=== PATIENT | female | born 1945 | race Caucasian/White ===

== ENCOUNTER → 2023-12-09 12:36 | Outpatient (REF) | payer MEDICARE, SELFPAY ==
[2023-12-10 19:22] LABS: Urine Albumin Trace (Neg - Trace); Urine Bilirubin Negative (Negative); Urine Color Yellow; Urine Glucose 2+ (Negative); Urine Ketone Trace (Negative); Urine Leukocyte 2+ (Negative); Urine Nitrite Negative (Negative); Urine Occult Blood 2+ (Negative); Urine Urobilinogen Negative (Neg - 1+)
[2023-12-10 19:23] LABS: Urine Character Very Cloudy (Clear)
[2023-12-10 19:30] LABS: Urine Squamous Cell 0-2 /LPF (Few)
[2023-12-10 19:31] LABS: Urine Bacteria Many (Negative); Urine White Cell >100 /HPF (0-5)
== END ==
LOC: OLABPV 12:36
PROVIDERS: ATTENDING PHYSICIAN Obstetrics & Gynecology
DX: N39.0 Urinary tract infection, site not specified (principal)
CPT/HCPCS: 81003; 81015; 87071; 87086; 87186

== ENCOUNTER → 2024-01-05 11:33 | Outpatient (REF) | payer MEDICARE, SELFPAY | LOC: OLABPV 11:33 | PROVIDERS: ATTENDING PHYSICIAN Obstetrics & Gynecology | DX: N39.0 Urinary tract infection, site not specified (principal) | CPT/HCPCS: 87077; 87086; 87186 ==

== ENCOUNTER → 2024-01-11 10:25 | Outpatient (REF) | payer MEDICARE, SELFPAY ==
[2024-01-11 11:27] LABS: ALT (SGPT) 17 U/L (0-35); AST (SGOT) 26 U/L (14-36); Albumin 3.5 g/dl (3.5-5.0); Alkaline Phosphatase 67 U/L (38-126); Blood Urea Nitrogen 16 mg/dl (7-17); Calcium 9.7 mg/dl (8.4-10.2); Carbon Dioxide 27 mmol/L (22-30); Chloride 98 mmol/L (98-107); Glucose 105 mg/dl (70-99); HDL Cholesterol 66 mg/dl; LDL Cholesterol, Calculated 80 mg/dl; Potassium 4.2 mmol/L (3.5-5.1); Sodium 134 mmol/L (135-145); Total Bilirubin 0.7 mg/dl (0.2-1.3); Total Cholesterol 192 mg/dl (50-199); Total Protein 5.6 g/dl (6.3-8.2); Triglyceride 230 mg/dl (10-149); Very Low Density Lipoprotein 46 mg/dl (0-30); eGFR > 60.00
[2024-01-11 11:37] LABS: Glycohemoglobin (HgbA1c) 7.8 % (4.0-5.6)
[2024-01-11 11:57] LABS: TSH Reflex To Free T4 2.54 uIU/ml (0.47-4.68)
== END ==
LOC: OLABPV 10:25
PROVIDERS: ATTENDING PHYSICIAN Family Medicine
DX: E11.65 Type 2 diabetes mellitus with hyperglycemia (principal); E78.00 Pure hypercholesterolemia, unspecified; E03.9 Hypothyroidism, unspecified
CPT/HCPCS: 36415; 80053; 80061; 83036; 84443

== ENCOUNTER → 2024-01-28 14:44 | Outpatient (REF) | payer MEDICARE, SELFPAY | LOC: WDC 14:44 | PROVIDERS: ATTENDING PHYSICIAN Family Medicine | DX: Z12.31 Encounter for screening mammogram for malignant neoplasm of breast (principal) | CPT/HCPCS: 77063; 77067 ==

== ENCOUNTER → 2024-02-01 11:06 | Outpatient (REF) | payer MEDICARE, SELFPAY ==
[2024-02-01 17:17] LABS: Urine Albumin Negative (Neg - Trace); Urine Bilirubin Negative (Negative); Urine Character Slightly Cloudy (Clear); Urine Color Yellow; Urine Glucose Negative (Negative); Urine Ketone Negative (Negative); Urine Leukocyte 2+ (Negative); Urine Nitrite Negative (Negative); Urine Occult Blood Trace (Negative); Urine Urobilinogen Negative (Neg - 1+)
[2024-02-01 17:23] LABS: Urine Bacteria Many (Negative); Urine Red Blood Cell 0-2 /HPF (0-2); Urine Squamous Cell 0-2 /LPF (Few); Urine White Cell >100 /HPF (0-5)
== END ==
LOC: CLAB 11:06
PROVIDERS: ATTENDING PHYSICIAN Obstetrics & Gynecology
DX: N39.0 Urinary tract infection, site not specified (principal)
CPT/HCPCS: 81003; 81015; 87077; 87086; 87186

== ENCOUNTER → 2024-03-17 09:25 | Outpatient (REF) | payer MEDICARE, SELFPAY ==
[2024-03-17 19:51] LABS: Urine Albumin Negative (Neg - Trace); Urine Bilirubin Negative (Negative); Urine Character Clear (Clear); Urine Color Yellow; Urine Glucose Negative (Negative); Urine Ketone Negative (Negative); Urine Leukocyte Negative (Negative); Urine Nitrite Negative (Negative); Urine Occult Blood Negative (Negative); Urine Urobilinogen Negative (Neg - 1+); Urine pH 6.5 (5.0-9.0)
== END ==
LOC: OLABP 09:25
PROVIDERS: ATTENDING PHYSICIAN Urology
DX: N39.0 Urinary tract infection, site not specified (principal)
CPT/HCPCS: 81003; 87077; 87086; 87186

== ENCOUNTER → 2024-05-03 10:52 | Outpatient (REF) | payer MEDICARE, SELFPAY ==
[2024-05-03 14:12] LABS: ALT (SGPT) 18 U/L (0-35); AST (SGOT) 27 U/L (14-36); Albumin 3.5 g/dl (3.5-5.0); Alkaline Phosphatase 59 U/L (38-126); Blood Urea Nitrogen 19 mg/dl (7-17); Calcium 9.5 mg/dl (8.4-10.2); Carbon Dioxide 30 mmol/L (22-30); Chloride 99 mmol/L (98-107); Glucose 82 mg/dl (70-99); Potassium 4.1 mmol/L (3.5-5.1); Sodium 135 mmol/L (135-145); Total Bilirubin 0.9 mg/dl (0.2-1.3); Total Protein 5.4 g/dl (6.3-8.2); eGFR > 60.00
[2024-05-03 14:24] LABS: Glycohemoglobin (HgbA1c) 7.4 % (4.0-5.6)
== END ==
LOC: OLABPV 10:52
PROVIDERS: ATTENDING PHYSICIAN Family Medicine
DX: I10 Essential (primary) hypertension (principal); E11.65 Type 2 diabetes mellitus with hyperglycemia
CPT/HCPCS: 36415; 80053; 83036

== ENCOUNTER → 2024-06-16 10:26 | Outpatient (REF) | payer MEDICARE, SELFPAY | LOC: RCS 10:26 | PROVIDERS: ATTENDING PHYSICIAN Internal Medicine Cardiovascular Disease; FAMILY PHYSICIAN Family Medicine | DX: I34.0 Nonrheumatic mitral (valve) insufficiency (principal); I36.1 Nonrheumatic tricuspid (valve) insufficiency | CPT/HCPCS: 93306 ==

== ENCOUNTER 2024-08-08 08:18 | Outpatient (RCR) | payer MEDICARE, SELFPAY | END 2024-08-08 23:59 | disposition home or self-care (01) | LOC: RPT 08:18 | PROVIDERS: ATTENDING PHYSICIAN Urology; FAMILY PHYSICIAN Family Medicine | DX: N39.41 Urge incontinence (principal); N39.0 Urinary tract infection, site not specified; M62.89 Other specified disorders of muscle; Z73.6 Limitation of activities due to disability | CPT/HCPCS: 97163; 97530 ==

== ENCOUNTER 2024-08-28 15:06 | Outpatient (RCR) | payer MEDICARE, SELFPAY | END 2024-08-28 23:59 | disposition home or self-care (01) | LOC: RPT 15:06 | PROVIDERS: ATTENDING PHYSICIAN Urology; FAMILY PHYSICIAN Family Medicine | DX: N39.41 Urge incontinence (principal); N39.0 Urinary tract infection, site not specified; M62.89 Other specified disorders of muscle; Z73.6 Limitation of activities due to disability | CPT/HCPCS: 97112; 97530 ==

== ENCOUNTER 2024-09-02 22:20 | Inpatient (IN) | payer MEDICARE, SELFPAY ==
[2024-09-02] VITALS (36 sets, daily range): BP systolic 66–127; BP diastolic 26–95; BMI 31.9
--- NOTE | 2024-09-02 17:56 | EDRN ---
unable to get IV access and IV VAT RN called at this time and called back and aware. Dr. Burleson in room w/ pt at this time.
--- NOTE | 2024-09-02 18:12 | ED.GENMED ---
History of Present Illness
General
Chief Complaint: Abdominal Symptoms
Source: patient and spouse
Exam Limitations: none
Time Seen by Provider: 09/02/24 17:55
History of Present Illness
History of Present Illness:
79-year-old female complaining of vomiting diarrhea general fatigue weakness. Started yesterday. Diarrhea is watery. No blood or mucus. No abdominal pain. Recurrent vomiting today. Slid off her chair today secondary to weakness. No unusual
food ingestion. However other people at [facility] have been ill with similar issues.
Past History
Past History
ED Past Medical History: Fibromyalgia, GERD (Dyspepsia), HTN, Hypercholesterolemia, NIDDM (Diet controlled), Hypothyroidism, Psychiatric (Depression, ) and Other (rheumatoid arthritis, chronic nausea, intermittent diarrhea, vertigo, Diverticulitis,
TMJ, CPAP for sleep apnea, GI bleeding, UTI, Polymyalgia rheumatica, )
ED Past Surgical History: Appendectomy, Bowel resection, Cholecystectomy, Gynecological (Hysterectomy D&C, ovarian cyst), Orthopedic (Bilateral knee replacements Spinal fusion, Right foot surgery), Tonsilectomy, Urological (Bladder repair) and Other
(Surgery for small bowel obstruction)
Patient has exhibited threatening behavior?: No
PSI?: No
Social History
Tobacco: Non-smoker
Alcohol: None
Drug: None
Personal:
Living: with family
Employment: Retired
Family History
Family History: Hypertension
Review of Systems
Review of Systems
All Other Systems: Not applicable
Constitutional: Reports chills; Denies fever
Respiratory: Reports no symptoms
Cardiac: Reports no symptoms
ABD/GI: Denies abdominal pain, bloody stools or black stools
Phy Exam
Physical Exam
Physical Exam:
GENERAL: Alert and oriented in no apparent distress. Generally weak however
EYE: Orbits normal.
NECK: Supple, no significant adenopathy.
ENT: Pharynx without erythema
CARDIAC: Regular rate and rhythm without any obvious murmurs.
LUNGS: Clear breath sounds,normal
ABDOMEN: Soft, without focal tenderness or distention. Elevated BMI
NEUROLOGICAL: Alert and oriented , grossly non-focal
SKIN: Warm and dry, mild areas of ecchymosis to both anterior knees with old surgical scars
MUSCULOSKELETAL: Mild bilateral lower extremity nonpitting edema. Both feet are cold but not cyanotic
PSYCH: Normal and appropriate interaction.
Sepsis
Sepsis Screening
Sepsis Assessment: Septic Shock
Sepsis Screening: Hypotension, Worsening O2 Saturation, Sustained Hypotension-SBP <90,MAP<65, or SBP decrease 40mmHg or more and Vasopressor support required
Sepsis Screen
Sepsis Screen: Septic Shock
Date: 09/02/24
Time: 22:55
Course
Orders/Labs/Results
Orders:
Orders
09/02/24 17:26
Electrocardiogram (*1) Urgent
Reason for Study: Chest Pain
Cardiac Monitoring- Treatment ONCE
EKG- Treatment ONCE
09/02/24 18:03
STOOL [C difficile Antigen & Toxins] Urgent
PATRICK Source: Feces/Stool
Specimen Description:
Stool Culture Urgent
PATRICK Source: Feces/Stool
Specimen Description:
CXR Port [CR Chest Portable - 1 View] Urgent
Comment:
Reason For Exam: hypoxia
Reason Study Needs to be Portable: Patient Unstable
09/02/24 18:04
CT Abd/Pel (IV only)-DH only Urgent
Comment:
Reason For Exam: Vomiting diarrhea
IV Insert/Care/Rem.- Treatment PRN
0.9% Sodium Chloride 1000 ml [Nss] 1,000 ml IV BOLUS
09/02/24 18:38
COVID-19 Antigen Urgent
Source: Nasal Swab
Influenza A+B Rapid Molecular Urgent
PATRICK Source: Nasal Swab
Specimen Description:
09/02/24 18:40
Add On- LAB Urgent
Tests Added?: probnp
09/02/24 19:40
Comprehensive Metabolic Panel Urgent
Lactic Acid Urgent
Lipase Urgent
Blood Culture Urgent
PATRICK Source: Blood/Venous
Specimen Description:
09/02/24 19:47
NT-proBNP Urgent
Comment: ADD ON
Troponin I Urgent
09/02/24 20:02
Complete Blood Count/With Diff Urgent
09/02/24 20:08
Acetaminophen 1000MG/100Ml [Ofirmev] 1,000 mg in 100 ml .ROUTE .STK-MED
Acetaminophen 1000MG/100Ml [Ofirmev] 1,000 mg in 100 ml IV ONCE
Acetaminophen IV Indication:: ED Narcotic Naive Pt-ONCE
09/02/24 20:42
Piperacillin/Tazo 4.5 Gram [Zosyn] 4.5 gram in 100 ml IV NOW
09/02/24 20:43
Hydrocortisone Sod Succinate [Solu-Cortef] 100 mg IV NOW STA
NORepinephrine 4 MG/250 ML [Levophed] 4 mg in 250 ml IV NOW
Initial dose in mcg/min, then titrate:: 2
Titrate to keep:: MAP > 65 mmHg
Titrate by mcg/min:: 1-2 mcg/min
Frequency of titrations (minutes):: 5
Maximum dose in ICU in mcg/min:: 30
Maximum dose in IMU in mcg/min:: 8
Maximum dose in IVU in mcg/min:: 4
Begin to taper infusion when:: Remained at goal for 4hrs
Taper by mcg/min:: 1-2 mcg/min
Frequency of taper (minutes) if patient maintains goal:: 30
Taper to off?: Yes
If infusion off & no longer maintaining goal:: Contact Provider
09/02/24 21:25
Urinalysis Reflex To Culture Urgent
Date Specimen was Collected: 09/02/24
Time Specimen was Collected: 21:27
Urine Microscopic Reflex Cult Urgent
Urine Culture Urgent
PATRICK Source: U
Specimen Description:
Date Specimen was Collected: 09/02/24
Time Specimen was Collected: 21:27
09/02/24 21:30
Add On - Microbiology Urgent
Tests Added?: urine c+s
09/02/24 22:00
Admit/Transfer Patient As Directed
Co-Sign Provider:
Level of Care: Inpatient admission
Assign to:: ICU
Physician / Group: Hospitalist
Diagnosis: Sepsis
Reason for Hospitalization: Septic shock
Expected length of stay greater than two midnights?: Yes
ELOS- Estimated Length of Stay in days: 2
I certify the patient meets the requirements for IP care: Yes
Flush (0.9% Sodium Chloride) [Flush (Nss)] See Dose Instructions IV PER PROTOCOL
PRN Pain Medication Management As Directed
May give lesser potent ordered pain med per pt: Yes
preference::
Protocol:: Medication orders for pain may be administered in a
manner that supports deferring to patient preference
when the pt is:
- Requesting an ordered lesser potent pain medication.
Least to most potent pain medications are defined
as: acetaminophen < NSAID < tramadol < opioids
(morphine, oxycodone, hydromorphone).
- Requesting a lesser dose of the same medication IF
ORDERED.
- Requesting a less intrusive route of administration
if both routes are prescribed by the provider (PO <
IV).
09/02/24 22:01
Code Status As Directed
Resuscitation Status: Full Code
Abnormal Lab Results
09/02/24 09/02/24 09/02/24
19:40 20:02 21:25
WBC 12.9 H 10^3/uL
(4.8-10.8)
MCHC 30.1 L g/dL
(33.0-37.0)
Abs Immat Gran (auto) 0.1 H 10^3/uL
(0-0.05)
Absolute Neuts (auto) 10.9 H 10^3/uL
(1.4-6.5)
Absolute Lymphs (auto) 0.5 L 10^3/uL
(1.2-3.4)
Absolute Monos (auto) 1.2 H 10^3/uL
(0.1-0.6)
Immature Gran % 1.0 H %
(0-0.5)
Neutrophils % 84.5 H %
(42.2-75.2)
Lymphocytes % 3.6 L %
(20.5-51.1)
Carbon Dioxide 34 H mmol/L
(22-30)
BUN 21 H mg/dl
(7-17)
Glucose 153 H mg/dl
(70-99)
Calcium 8.2 L mg/dl
(8.4-10.2)
Total Protein 5.3 L g/dl
(6.3-8.2)
Albumin 3.4 L g/dl
(3.5-5.0)
Ur Occult Blood Reflex 3+ A
(Negative)
Urine Nitrite (Reflex) Positive A
(Negative)
Leukocyte Esterase Rfl 2+ A
(Negative)
Urine RBC 3-6 A /HPF
(0-2)
Urine WBC (Reflex) 50-60 A /HPF
(0-5)
Urine Bacteria (Reflex) Many A
(Negative)
09/02/24 20:02
09/02/24 19:40
Vital Signs
Initial and Last Documented VS:
Initial Vital Signs
Resp BP
24 116/58
09/02/24 17:27 09/02/24 17:27
Last Documented Vital Signs
Temp Pulse Resp BP Pulse Ox
101.1 F H 92 18 90/48 92
09/02/24 22:41 09/02/24 22:35 09/02/24 22:35 09/02/24 22:35 09/02/24 22:35
MDM/Problems Addressed
Differential Diagnosis Includes:
Patient describing significant GI symptoms and weakness. Workup in progress. Cultures lactic acid stool cultures CT of the abdomen COVID flu testing. Will likely need admission. Similar symptoms have been going around her independent living
facility.
*Radiology
Radiology exam reviewed: preliminary read by ED provider (CHF), radiology read reviewed (CHF/possible pneumonia) and all reviewed NAD by ED Provider (CT scan shows enteritis/proctitis and multiple incidental findings)
*Pulse Oximetry
Patient hypoxic: yes
*EKG
Interpreted by ED Provider?: Yes
Interpretation: abnormal
Comparison EKG: changes noted
Heart Rate: 96
Rate: normal
Rhythm: sinus
[place]: normal axis
Interval: normal interval
QRS Pattern: normal QRS
Ischemia: non-specific ST changes
*Corporate Officer Interpretation
Rate: normal
Interpretation: normal
Heart Rate: 90
Rhythm: sinus
*Critical Care Note
Total Time (30-74mins, 75-104mins- exclusive of procedures): 45
Data Reviewed
Review of Other/Old Records Reveals: Labs, Records and Testing
Update Note
Update Note:
2044... Patient's blood pressure dropped. She is receiving wide-open fluids but we are trying to be careful with her x-ray showing CHF and her proBNP being elevated. She has no history of CHF. Also will start Levophed. With the fever and septic
picture we will start a dose of Zosyn. Also stress dose steroids.
2254... Patient has been rechecked multiple times. Family has been updated multiple times. Blood pressure improved some. She had some episodes of atrial tachycardia but self resolving. CT most consistent with enteritis which is consistent with
her history. However urine positive. Possible urosepsis.
ED Attending Note
-
Portions of this chart may have been created with voice recognition software.� Occasional wrong word or��sound alike� substitutions may have occurred due to the inherent limitations of voice recognition software.
Discharge Plan
Departure
Patient Disposition: Admit
Date of Disposition: 09/02/24
Time of Disposition: 21:04
Presentation/result/management discussed w/ accepting MD/DO: Hospitalist
Discharge Problem:
Septic shock, Possible urosepsis, Enteritis, CHF
Interventions
Interventions:
*Risk Screen - Suicide Last Done: 09/02/24 17:29
*General Assessment Last Done: 09/02/24 17:29
*Neglect/Abuse Screening Last Done: 09/02/24 17:29
ED- Fall Risk Assessment Last Done: 09/02/24 17:29
*ED COVID-19 Vaccine History Last Done: 09/02/24 17:29
EN-Aohrtl-Thtgswiujn Assessment Last Done: 09/02/24 18:40
--- NOTE | 2024-09-02 18:35 | EDRN ---
IV VAT RN in room w/pt at this time.
[2024-09-02 18:58] LABS: COVID-19 Antigen Negative (Negative)
--- NOTE | 2024-09-02 19:18 | EDRN ---
Pt remains w/out IV access or bloods to be sent to lab. IV VAT RNs x2 in room attempting a midline.
[2024-09-02 19:59] LABS: Lactic Acid 1.9 mmol/L (0.7-2.0)
[2024-09-02 20:02] LABS: ALT (SGPT) 19 U/L (0-35); AST (SGOT) 29 U/L (14-36); Albumin 3.4 g/dl (3.5-5.0); Alkaline Phosphatase 55 U/L (38-126); Blood Urea Nitrogen 21 mg/dl (7-17); Calcium 8.2 mg/dl (8.4-10.2); Carbon Dioxide 34 mmol/L (22-30); Chloride 98 mmol/L (98-107); Estimated Creatinine Clearance 83 ml/min; Glucose 153 mg/dl (70-99); Lipase 38 U/L (23-300); Potassium 3.9 mmol/L (3.5-5.1); Sodium 135 mmol/L (135-145); Total Bilirubin 1.1 mg/dl (0.2-1.3); Total Protein 5.3 g/dl (6.3-8.2); eGFR > 60.00
[2024-09-02] MEDS: NSS 1000 IV (20:05)
[2024-09-02 20:08] LABS: % Basophils 0.3 % (0-2); % Eosinophils 1.4 % (0-6); % Lymphocytes 3.6 % (20.5-51.1); % Monocytes 9.2 % (1.7-9.3); % Neutrophils 84.5 % (42.2-75.2); Absolute Eosinophils 0.2 10^3/uL (0-0.7); Absolute Immature Granulocytes 0.1 10^3/uL (0-0.05); Absolute Lymphocytes 0.5 10^3/uL (1.2-3.4); Absolute Monocytes 1.2 10^3/uL (0.1-0.6); Absolute Neutrophils 10.9 10^3/uL (1.4-6.5); Hematocrit 42.5 % (37.0-47.0); Hemoglobin 12.8 g/dL (12.0-16.0); Mean Corp Hgb Conc. 30.1 g/dL (33.0-37.0); Mean Corpuscular Hgb 29.2 pg (27.0-31.0); Mean Corpuscular Volume 96.8 fL (81.0-99.0); Mean Platelet Volume 9.5 fL (7.4-10.4); Nucleated Red Blood Cells % 0 %; Platelet Count 195 10^3/uL (130-400); Red Blood Cell Count 4.39 10^6/uL (4.20-5.40); Red Cell Dist. Width 13.7 % (11.5-14.5); White Blood Cell Count 12.9 10^3/uL (4.8-10.8)
[2024-09-02] MEDS: OFIRMEV 100 IV (20:10)
[2024-09-02 20:14] LABS: NT-proBNP 2290 pg/ml
[2024-09-02 20:35] LABS: Troponin I 0.028 ng/ml
[2024-09-02] MEDS: SOLU-CORTEF 100 MG IV (21:09)
[2024-09-02] MEDS: ZOSYN 100 IV (21:12)
[2024-09-02] MEDS: LEVOPHED 250 IV (21:15)
[2024-09-02 21:39] LABS: Urine Albumin Trace (Neg - Trace); Urine Bilirubin Negative (Negative); Urine Character Slightly Cloudy (Clear); Urine Color Yellow; Urine Glucose Negative (Negative); Urine Ketone Negative (Negative); Urine Leukocyte 2+ (Negative); Urine Nitrite Positive (Negative); Urine Occult Blood 3+ (Negative); Urine Urobilinogen Negative (Neg - 1+)
[2024-09-02 21:48] LABS: Urine Mucus Few; Urine Squamous Cell 0-2 /LPF (Few)
[2024-09-02 21:49] LABS: Urine Bacteria Many (Negative); Urine White Cell 50-60 /HPF (0-5)
--- NOTE | 2024-09-02 21:50 | HPS.HSE ---
Family Physician
-
Family Physician: Lyubov Liu
Chief Complaint
-
Nausea vomiting diarrhea and weakness
History of Present Illness
This is an 79-year-old female with past medical history significant for rheumatoid arthritis on chronic prednisone, diabetes, DMII, hypothyroid, GERD who lives at adult living facility presenting to the emergency department with abdominal
discomfort, nausea vomiting diarrhea and weakness, found to be hypotensive and febrile in the emergency department requiring immediate placement on pressors.
Family reports 1 day history of nausea then followed by development of vomiting and diarrhea today. Multiple members of the living facility has similar GI symptoms. Patient herself denies any urinary symptoms. She reportedly had some chills
earlier. She denies any cough. She has no shortness of breath. She denies any abdominal pain or flank pain. She has no joint pains.
On arrival in the emergency department she had a temp of 102.9, blood pressure was initially 89 systolic but then dropped into the 70s, she was intermittently tachycardic to the 130s, she satting 96% on 2 L. She has a leukocytosis of 13,000 with
otherwise normal CBC. Electrolytes were within normal limits with a normal BUN and creatinine. Glucose was 153. Chest x-ray shows mild vascular and interstitial congestion possibly consistent with CHF. There is a nodular opacity in the left
lower lobe that could be developing pneumonia. COVID test was negative. Influenza was negative. Troponin was negative. BNP was slightly elevated at 2290.
Medical History
Past Medical History
Past Medical History: Reports GERD, HTN, Hypothyroidism and NIDDM
Additional Past Medical History:
RA
Past Surgical History: Reports Other
Social History
Unable to obtain full social history at this time due to: Acuity
Family History
Family History: Not pertinent
Allergies / Home Medications
Allergies reflects when Allergies were last updated in [employer].
Home Medications with original date entered in [employer]
Allergy/Medication List:
Allergies
Allergy/AdvReac Type Severity Reaction Status Date / Time
bee venom protein (honey bee) Allergy Shortness Verified 09/02/24 17:25
of Breath
ciprofloxacin [From Cipro] Allergy Unknown Verified 09/02/24 17:25
glycine [From Gamunex] Allergy Hives Verified 09/02/24 17:25
immune globulin,alpha (IgA) Allergy Hives Verified 09/02/24 17:25
greater than 50 mcg/mL
[From Gamunex]
immune globulin,gamma (IgG) Allergy Hives Verified 09/02/24 17:25
human
[From Gamunex]
lisinopril Allergy cough Verified 09/02/24 17:25
meperidine [From Demerol] Allergy Nausea Verified 09/02/24 17:25
nitrofurantoin Allergy SEE BELOW Verified 09/02/24 17:25
[From Macrobid]
prochlorperazine edisylate Allergy agitation Verified 09/02/24 17:25
[From Compazine]
Sulfa (Sulfonamide Allergy Hives Verified 09/02/24 17:25
Antibiotics)
Home Medications
simvastatin 10 mg tablet (Zocor) 10 mg PO QPM High cholesterol 02/13/08
levothyroxine 25 mcg tablet 25 mcg PO DAILY@0500 Thyroid 05/30/20
potassium chloride 10 mEq tablet,extended release(part/cryst) 10 meq PO TID Electrolyte Repletion ##0 05/30/20
losartan 50 mg tablet 50 mg PO BID Blood pressure 03/27/21
metoprolol tartrate 25 mg tablet 25 mg PO BID #60 tabs 11/16/22
pantoprazole 40 mg tablet,delayed release (Protonix) 40 mg PO BID Gastrointestinal Issue 12/30/22
acetaminophen 325 mg tablet (Tylenol) 325 mg PO HSPRN PRN MILD PAIN 06/24/23
calcium citrate 250 mg PO QPM Supplement 06/24/23
cyclosporine 0.05 % eye drops in a dropperette (Restasis) 1 drp BOTH EYES [id number] PRN DRY EYES 06/24/23
furosemide 20 mg tablet 20 mg PO .[id number] Fluid Retention/Swelling 06/24/23
latanoprost 0.005 % eye drops 1 drp BOTH EYES DAILY Eye Condition 06/24/23
magnesium oxide 400 mg PO QPM Electrolyte Repletion 06/24/23
methylprednisolone 4 mg tablet 24 mg PO DAILY Anti-Inflammatory 06/24/23
sarilumab 200 mg/1.14 mL subcutaneous pen injector (Kevzara) 200 mg SC Q2W rheumatoid arthritis and polymyalgia rheumatica 06/24/23
sitagliptin phosphate 50 mg tablet (Januvia) 50 mg PO DAILY Diabetes 06/24/23
cephalexin 500 mg capsule 500 mg PO QID #28 caps 06/27/23
methylprednisolone 16 mg tablet 24 mg (1.5 x 16 mg) PO DAILY #0 tabs 06/27/23
Review of Systems
-
History Source: Patient and Family
Constitutional: Reports Chills
EENT: Reports No Symptoms
Respiratory: Reports No Symptoms
Cardiac: Reports No Symptoms
Abdomen/GI: Reports Nausea, Vomiting and Diarrhea
: Reports No Symptoms
Musculoskeletal: Reports No Symptoms
Skin: Reports No Symptoms
Neurological: Reports No Symptoms
Endocrine: Reports No Symptoms
Psych: Reports No Symptoms
Physical Exam
Vital Signs
Vital Signs
Temp Pulse Resp BP Pulse Ox
102.9 F H 99 17 78/45 95
09/02/24 19:53 09/02/24 21:30 09/02/24 21:30 09/02/24 21:30 09/02/24 21:30
Physical Exam
General: Well Developed, Well Nourished and Appears in Distress
HEENT: NormoCephalic, Anicteric, Moist mucous membranes, Atraumatic, PERRLA and Oxygen
Respiratory: Clear (anteriorly)
Cardiac: S1/S2, Irregular Rhythm and Peripheral Edema (trace)
Breast: Deferred by me
GI: Soft, Non Distended and Normal Bowel Sounds
Rectal: Deferred by Provider
Genito-urinary: Jackson
Musculoskeletal: No Clubbing, No Cyanosis and No Edema
Skin: Warm
Neuro: AO x 3
Hematologic/Lymphatic: No Lymphadenopathy
Psych: Calm
Laboratory Results
-
09/02/24 20:02
09/02/24 19:40
Laboratory Results
Lactic Acid 1.9 mmol/L (0.7-2.0) 09/02/24 19:40
Total Bilirubin 1.1 mg/dl (0.2-1.3) 09/02/24 19:40
AST 29 U/L (14-36) 09/02/24 19:40
ALT 19 U/L (0-35) 09/02/24 19:40
Alkaline Phosphatase 55 U/L (38-126) 09/02/24 19:40
Troponin I 0.028 ng/ml 09/02/24 19:47
Lipase 38 U/L (23-300) 09/02/24 19:40
Data Reviewed
-
Diagnostic Radiology: Image Personally Visualized and interpreted and Report Reviewed by me
CT Scan: Report Reviewed by me
Medical Tests (Nuc Med, Echo, EKG etc): Image Personally Visualized and interpreted
Lab Data: Labs Reviewed by me
Old Records: Reviewed
Impression/Plan
-
IMPRESSION:
79 y.o female with RA on chronic prednisone, history of urosepsis presents with fevers, hypotension in setting diarrhea and has a positive u/a. Likely urosepsis. Possible PNA.
PLAN:
Septic shock -patient with fever hypotension leukocytosis concerning for acute shock likely secondary from infectious process. Infectious source unclear at this time. X-ray shows possible pneumonia. She does have a history of recent diarrhea and
could have developed colitis or intra-abdominal process with CTAP w/ enterocolitis, she also has a positive u/a and h/o urosepsis.
- admit to ICU
- blood and urine cultures sent
- IV Zosyn, Vanc, check stool for culture and CDIFF if diarrhea
- mrsa swab
- Fluid resuscitation acceptable despite question of CHF. 1.5 L given in ED. Acceptable for additional 500 ml NS IV
- Pressors started
- stress dose steroids given history of chronic medrol use , continue solu-cortif 50 q6 for now
- ID consultation
- Critical care consultation
DM II
- sitagliptin daily
- sliding scale insulin
HTN
- hold losartan
- hold metoprolol
Hypothyroid
- continue synthroid
DVT PPX - lovenox sq
Code status - Full Code
[2024-09-03] VITALS (47 sets, daily range): BP systolic 81–170; BP diastolic 46–105; BMI 31.2
[2024-09-03] MEDS: VANCOCIN 540 MG IV (00:05)
[2024-09-03] MEDS: SOLU-CORTEF 50 MG IV ×4 (00:21→18:20)
[2024-09-03 00:42] LABS: Lactic Acid 0.9 mmol/L (0.7-2.0)
--- NOTE | 2024-09-03 01:20 | PTCARENOTE ---
Received pt via transfer from the ER. Pt AAOx3 able to LUND with generalized weakness. NSR but with runs of tachycardia. +1 edema in extremities. 94% on 5L NC, lung sounds diminished throughout. Hyperactive bowel sounds in all 4Q. Jackson CDI draining
clear yellow urine. Skin CDI, feet pale compared to legs but have palpable pulses. Call menjivar at bedside.
[2024-09-03] MEDS: NEO-SYNEPHRINE 250 IV (01:56)
[2024-09-03 02:00] LABS: Glucose - Point of Care 186 mg/dl (70-99)
[2024-09-03] MEDS: NOVOLOG FLEXPEN 1 UNITS SC (02:03)
[2024-09-03] MEDS: ZOSYN 50 IV ×2 (02:06→09:38)
--- NOTE | 2024-09-03 02:31 | PTCARENOTE ---
All systems reassessed. Pt switched from Levo to Isaías gtt. Call menjivar at bedside.
--- NOTE | 2024-09-03 04:13 | PTCARENOTE ---
All systems reassessed, labs drawn, hygiene performed. Call menjivar at bedside.
[2024-09-03 04:23] LABS: Hematocrit 41.5 % (37.0-47.0); Hemoglobin 12.6 g/dL (12.0-16.0); Mean Corp Hgb Conc. 30.4 g/dL (33.0-37.0); Mean Corpuscular Hgb 29.5 pg (27.0-31.0); Mean Corpuscular Volume 97.2 fL (81.0-99.0); Mean Platelet Volume 9.8 fL (7.4-10.4); Platelet Count 185 10^3/uL (130-400); Red Blood Cell Count 4.27 10^6/uL (4.20-5.40); Red Cell Dist. Width 13.9 % (11.5-14.5); White Blood Cell Count 11.7 10^3/uL (4.8-10.8)
[2024-09-03 04:26] LABS: ALT (SGPT) 18 U/L (0-35); AST (SGOT) 33 U/L (14-36); Albumin 2.9 g/dl (3.5-5.0); Alkaline Phosphatase 34 U/L (38-126); Blood Urea Nitrogen 18 mg/dl (7-17); Calcium 7.3 mg/dl (8.4-10.2); Carbon Dioxide 24 mmol/L (22-30); Chloride 105 mmol/L (98-107); Estimated Creatinine Clearance 82 ml/min; Glucose 173 mg/dl (70-99); Magnesium 1.9 mg/dl (1.6-2.3); Potassium 3.9 mmol/L (3.5-5.1); Sodium 135 mmol/L (135-145); Total Bilirubin 1.7 mg/dl (0.2-1.3); Total Protein 4.9 g/dl (6.3-8.2); eGFR > 60.00
[2024-09-03 04:32] LABS: INR 1.11; PT 14.6 Sec (11.4-14.6)
[2024-09-03 04:33] LABS: APTT 35.5 Sec (23.4-35.0)
[2024-09-03 04:37] LABS: Procalcitonin 1.72 ng/ml (0.0-0.25)
[2024-09-03 05:32] LABS: Cortisol, Random 65.6 ug/dl
[2024-09-03] MEDS: MAGNESIUM SULFATE 100 IV (05:36)
[2024-09-03] MEDS: CALCIUM GLUCONATE 100 IV (05:36)
[2024-09-03] MEDS: SYNTHROID 25 MCG PO (05:37)
[2024-09-03] MEDS: KCL 20 MEQ PO (05:37)
[2024-09-03] MEDS: NOVOLOG FLEXPEN-MODERATE RESISTANCE 1 UNITS SC ×2 (05:55→23:47)
[2024-09-03 06:06] LABS: Glucose - Point of Care 190 mg/dl (70-99)
--- NOTE | 2024-09-03 06:53 | W.PN.HOSP.TC ---
Addendum entered and electronically signed by Iraj Negrete MD 09/04/24 05:56:
Will need to review home medications list and resume as appropriate.
Original Note:
Today's Communication/Plan
-
Shock improved
No need for antibiotics -- appreciate ID
Monitor volume status, may need echo and discussion of case with CBC cardiology
Need home med rec done
Appreciate paramedic supervisor
Assessment / Plan
Assessment / Plan
Physical Exam
General: Not in acute distress
HEENT: Normocephalic
Respiratory: Clear to Auscultation Bilaterally
Cardiac: S1/S2, Irregular Rhythm and Peripheral Edema (trace)
GI: Soft, Non Distended and Normal Bowel Sounds
Musculoskeletal: No Cyanosis and No Edema
Skin: Warm
Neuro: AAO x 3
Psych: Calm
Assessment/Plan
79-year-old female with past medical history significant for rheumatoid arthritis on chronic prednisone, diabetes, DMII, hypothyroid, GERD who lives at adult living facility presenting to the emergency department with fevers, abdominal discomfort,
nausea vomiting diarrhea and weakness, found to be hypotensive and febrile in the emergency department requiring immediate placement on pressors.
Family reported 1 day history of nausea then followed by development of vomiting and diarrhea on 09/02/24. Multiple members of the living facility has similar GI symptoms. Patient herself denied any urinary symptoms. She reportedly had some
chills earlier. She denied any cough. She has no shortness of breath. She denied any abdominal pain or flank pain. She denied any joint pains.
On arrival in the emergency department she had a temp of 102.9, blood pressure was initially 89 systolic but then dropped into the 70s, she was intermittently tachycardic to the 130s, she satting 96% on 2 L. She had a leukocytosis of 13,000 with
otherwise normal CBC. Electrolytes were within normal limits with a normal BUN and creatinine. Glucose was 153. Chest x-ray showed mild vascular and interstitial congestion possibly consistent with CHF. There is a nodular opacity in the left
lower lobe that could be developing pneumonia. COVID test was negative. Influenza was negative. Troponin was negative. BNP was elevated at 2290.
Septic shock -patient with fever hypotension leukocytosis concerning for acute shock likely secondary from infectious process - possible pneumonia vs. acute Norovirus gastroenteritis (consistent with history)
Leukocytosis
Acute Hypoxic Respiratory Insufficiency
History of UTIs
History of Acinetobacter bacteremia
History of RLE Cellulitis/LE Edema
Immunocompromised State
- Continue monitoring in ICU for now, possible transfer to IMU/telemetry if patient continues to remain stable, and as per paramedic supervisor
- Diarrhea is improved now, but for any additional diarrhea can try sending stool for Norovirus testing
- Follow blood and urine cultures (but patient did not have any urinary symptoms)
- Initially, Vancomycin and Zosyn were given, but per ID, no need for further antibiotics as patient probably had sepsis from Norovirus
- Patient received IV fluids in the ER
- Pressors started -- but patient was physically off pressors as of 09/03/24 morning
- Stress dose steroids given history of chronic methyprednisolone use, continue solu-cortif 50 q6 for now and gradually taper as appropriate
- ID consultation, appreciate their evaluation and recommendations
- Critical care consultation, appreciate their evaluation and recommendations
Acute Hypoxic Respiratory Insufficiency in the ER around the time of admission
Elevated ProBNP
Mild Vascular and Interstitial Congestion on CXR
-Monitor off diuresis for now
-Hold further IV fluids unless absolutely needed
-Last echocardiogram in [facility] from 05/2024 showed '.....Stage I diastolic dysfunction suggestive of abnormal relaxation. Mild, functional mitral stenosis with a mean gradient of 4 mmHg. Mild pulmonary hypertension....'
-Daily weights and I's and O's
-Consider discussing with cardiology
Rheumatoid Arthritis/Polymyalgia Rheumatica--Chronic Steroid Dependence
- No rheum symptoms or pain as of 09/03/24 morning
- Follow-up with Rheum after acute hospitalization.
GERD
- Stable. Continue PPI IV on high-dose steroids, consider swithing to PO soon
Obesity due to excess calories and chronic steroid use
- Affects all aspects of care
- Encourage healthy diet and increased activity as tolerated with goal of weight loss.
DM II
- sitagliptin daily
- sliding scale insulin
- Keep in mind, patient is also on stress dose steroids right now
HTN (but presented with shock this admission)
- hold losartan
- hold metoprolol
Hypothyroid
- continue synthroid
WILL REQUEST NURSE TO CONFIRM ACCURACY OF MED REC
DVT PPX - lovenox sq
Code status - Full Code
Anticipated Discharge: > 48 hours
Subjective/Interval History
-
Date of Service: September 03, 2024
Patient was seen and examined. She was feeling better than when she came in.
Objective Data
-
Labs:
Laboratory Results
09/02/24 09/02/24 09/03/24
19:40 20:02 00:50
WBC Cancelled 12.9 H
Hgb Cancelled 12.8
Hct Cancelled 42.5
Plt Count Cancelled 195
PT
INR
APTT Cancelled
Sodium 135
Potassium 3.9
Chloride 98
Carbon Dioxide 34 H
BUN 21 H
Creatinine 0.6
Glucose 153 H
Calcium 8.2 L
Total Bilirubin 1.1
AST 29
ALT 19
Alkaline Phosphatase 55
09/03/24
03:52
WBC 11.7 H
Hgb 12.6
Hct 41.5
Plt Count 185
PT 14.6
INR 1.11
APTT 35.5 H
Sodium 135
Potassium 3.9
Chloride 105
Carbon Dioxide 24
BUN 18 H
Creatinine 0.6
Glucose 173 H
Calcium 7.3 L
Total Bilirubin 1.7 H
AST 33
ALT 18
Alkaline Phosphatase 34 L
Vital Signs:
Vital Signs
Temp Pulse Resp BP Pulse Ox
98.0 F 77 13 92/49 97
09/03/24 06:03 09/03/24 06:00 09/03/24 06:00 09/03/24 05:30 09/03/24 06:00
I&O
09/01/24 09/02/24 09/03/24
06:59 06:59 06:59
Intake Total 2100.5 / 2100.5
Output Total 650 / 650
Balance 1450.5 / 1450.5
--- NOTE | 2024-09-03 08:29 | CON.INTV ---
Consultation
Consultation Request
Date/Time Consultation Requested: 09/03/202451
Date/Time Consultation Performed: 09/03/2024825
Requesting Provider: NATALY Beverly
Performing Provider: Fidel Pugh MD
Reason for Consultation: Sepsis
Medical History
-
Chief Complaint: Nausea, vomiting + diarrhea
History of Present Illness:
79-year-old female with a past medical history of IBS, allergic rhinitis, history of gastritis with history of hemorrhage, diverticulosis/diverticulitis, spinal stenosis, TMJ syndrome, hypertension, history of SBO s/p MIRTA, anxiety, GERD, RA,
fibromyalgia and DM type II who presents from [facility] with nausea, vomiting and diarrhea. She has been unable to eat. Blood sugar was 175 en route here to the hospital. She has been feeling very dehydrated. Symptoms have been going on for about
1-2 days and she did have chills prior to arrival. In the ER she was febrile to 100.7 �F, pulse rate 97, breathing at 20 breaths/min, BP 116/58 and saturating 86% on room air. Saturations improved to 92% on 2 L/min. Initial vitals showed WBC
12.9, troponin negative at 0.028, proBNP 2290, lipase 38, and urinalysis with positive nitrites, 2+ leukocyte esterase and urine WBC 50�60. COVID antigen was negative. Flu A/B swab also negative, and blood cultures were collected in addition to
urine culture. CXR showed concerns for CHF, and subsequent CT A/P showed dependent changes in the lungs with no acute pathology of the abdomen or pelvis. Patient was hypotensive in the ER and she was given IVF with 1 L NS 0.9%, hydrocortisone 100
mg, required Levophed, also given Ofirmev + Zosyn. She was admitted to the ICU for further care. Compliance Director services consulted for additional management/recommendations.
When I saw the patient this morning she was in bed in no acute distress, off of vasopressors with BP 139/67, heart rate 80 and saturating 92% on room air. She currently denies a cough, fevers or chills. She did have diarrhea prior to arrival as
well as nausea and vomiting but that has all stopped. She says she had a burning sensation when she peed on Wednesday/ of this past week but this has also stopped. She currently denies chest pain, HERNANDEZ, abdominal pain, nausea, fevers or
chills.
Of note patient follows with us in the [facility] office with Dr. Bauer, last visit on 10/12/2023. She has a history of ARIANA and uses CPAP at 12 cmH2O. She is encouraged to use Flonase with saline nasal irrigations with Mucinex for postnasal drip. She
intermittently is given gammaglobulin infusions and follows with rheumatology for fibromyalgia. She was advised to follow-up with our office in 1 year but this was never done.
PMHx: Degenerative joint disease, migraine headaches, IBS, allergic rhinitis, small umbilical + inguinal hernia, gastritis with history of hemorrhage, diverticulosis with diverticulitis, spinal stenosis, TMJ syndrome, hypercholesterolemia,
hypertension, small bowel obstruction s/p lysis of adhesions, anxiety, GERD, rheumatoid arthritis, fibromyalgia, DM type II
PSHx: Left TKA, bladder repair, tonsillectomy, KESHA, cholecystectomy, spinal fusion and laminectomy, port placement, D&C due to miscarriage
Past Medical History
Past Medical History: Other (Above as per HPI)
Past Surgical History: Other (Above as per HPI)
Social History
Tobacco: Non-smoker
Alcohol: None
Drug: None
Family History
Family History: Cancer (Mother: Breast cancer) and Other (Father: RA)
Allergies / Home Medications
Allergies
Allergy/AdvReac Type Severity Reaction Status Date / Time
bee venom protein (honey bee) Allergy Shortness Verified 09/02/24 17:25
of Breath
ciprofloxacin [From Cipro] Allergy Unknown Verified 09/02/24 17:25
glycine [From Gamunex] Allergy Hives Verified 09/02/24 17:25
immune globulin,alpha (IgA) Allergy Hives Verified 09/02/24 17:25
greater than 50 mcg/mL
[From Gamunex]
immune globulin,gamma (IgG) Allergy Hives Verified 09/02/24 17:25
human
[From Gamunex]
lisinopril Allergy cough Verified 09/02/24 17:25
meperidine [From Demerol] Allergy Nausea Verified 09/02/24 17:25
nitrofurantoin Allergy SEE BELOW Verified 09/02/24 17:25
[From Macrobid]
prochlorperazine edisylate Allergy agitation Verified 09/02/24 17:25
[From Compazine]
Sulfa (Sulfonamide Allergy Hives Verified 09/02/24 17:25
Antibiotics)
Home Medications
�Medication �Instructions �Recorded �Confirmed �Last Taken �Type
simvastatin 10 mg tablet (Zocor) 10 mg PO QPM High cholesterol 02/13/08 06/24/23 06/23/23 History
levothyroxine 25 mcg tablet 25 mcg PO DAILY@0500 Thyroid 05/30/20 06/24/23 06/23/23 History
potassium chloride 10 mEq 10 meq PO TID Electrolyte 05/30/20 06/24/23 06/23/23 History
tablet,extended release(part/cryst) Repletion ##0
losartan 50 mg tablet 50 mg PO BID Blood pressure 03/27/21 06/24/23 06/23/23 History
metoprolol tartrate 25 mg tablet 25 mg PO BID #60 tabs 11/16/22 06/24/23 06/23/23 Rx
pantoprazole 40 mg tablet,delayed 40 mg PO BID Gastrointestinal Issue 12/30/22 06/24/23 06/23/23 History
release (Protonix)
acetaminophen 325 mg tablet 325 mg PO HSPRN PRN MILD PAIN 06/24/23 06/24/23 06/23/23 History
(Tylenol)
calcium citrate 250 mg PO QPM Supplement 06/24/23 06/24/23 06/23/23 History
cyclosporine 0.05 % eye drops in a 1 drp BOTH EYES [id number] PRN DRY 06/24/23 06/24/23 2 Weeks Ago History
dropperette (Restasis) EYES ~06/10/23
furosemide 20 mg tablet 20 mg PO .[id number] Fluid 06/24/23 06/24/23 06/24/23 History
Retention/Swelling
latanoprost 0.005 % eye drops 1 drp BOTH EYES DAILY Eye Condition 06/24/23 06/24/23 06/23/23 History
magnesium oxide 400 mg PO QPM Electrolyte Repletion 06/24/23 06/24/23 06/23/23 History
methylprednisolone 4 mg tablet 24 mg PO DAILY Anti-Inflammatory 06/24/23 06/24/23 06/23/23 History
sarilumab 200 mg/1.14 mL 200 mg SC Q2W rheumatoid arthritis 06/24/23 06/24/23 Unknown History
subcutaneous pen injector (Kevzara) and polymyalgia rheumatica
sitagliptin phosphate 50 mg tablet 50 mg PO DAILY Diabetes 06/24/23 06/24/23 06/23/23 History
(Januvia)
cephalexin 500 mg capsule 500 mg PO QID #28 caps 06/27/23 Unknown Rx
methylprednisolone 16 mg tablet 24 mg (1.5 x 16 mg) PO DAILY #0 06/27/23 Unknown Rx
tabs
Review of Systems
-
History Source: Patient
All other systems: Negative unless noted
Vitals / Labs / Diagnostic Testing
Vital Signs
Temp Pulse Resp BP Pulse Ox
98.7 F 77 13 92/49 97
09/03/24 07:34 09/03/24 06:00 09/03/24 06:00 09/03/24 05:30 09/03/24 06:00
Lab Data
09/03/24 03:52
09/03/24 03:52
Laboratory Results
09/03/24 09/03/24
00:50 03:52
PT 14.6
INR 1.11
APTT Cancelled 35.5 H
Microbiology
09/02/24 18:38 Nasal Swab Influenza Types A & B (NADIA) - Final
Negative for Influenza A & B, NAAT
Negative results must be combined with clinical observations
and patient history.
Nucleic Acid Amplification test (NAAT)performed on the
[employer] platform.
Diagnostic Testing:
Physical Exam
-
HEENT: Normocephalic and Anicteric
Cardiovascular: S1/S2, Rub (negative) and Peripheral Edema (+1 lower extremity edema bilaterally)
Respiratory: Wheeze (negative), Rales (negative), Rhonchi (negative) and Non-Labored Respirations
GI: Soft, Distended (Abdominal obesity), Non Tender and Normal Bowel Sounds
Neurology: AO x 3 and Tremors (negative)
Skin: Warm and Dry
General: Respiratory Distress (negative), Comfortable, Fever (negative) and Chills (negative)
Assessment
-
Assessment: 79-year-old female with a past medical history of IBS, allergic rhinitis, history of gastritis with history of hemorrhage, diverticulosis/diverticulitis, spinal stenosis, TMJ syndrome, hypertension, history of SBO s/p MIRTA, anxiety,
GERD, RA, fibromyalgia and DM type II who presents from [facility] with nausea, vomiting and diarrhea. She has been unable to eat. Blood sugar was 175 en route here to the hospital. She has been feeling very dehydrated. Symptoms have been going on
for about 1-2 days and she did have chills prior to arrival. In the ER she was febrile to 100.7 �F, pulse rate 97, breathing at 20 breaths/min, BP 116/58 and saturating 86% on room air. Saturations improved to 92% on 2 L/min. Initial vitals
showed WBC 12.9, troponin negative at 0.028, proBNP 2290, lipase 38, and urinalysis with positive nitrites, 2+ leukocyte esterase and urine WBC 50�60. COVID antigen was negative. Flu A/B swab also negative, and blood cultures were collected in
addition to urine culture. CXR showed concerns for CHF, and subsequent CT A/P showed dependent changes in the lungs with no acute pathology of the abdomen or pelvis. Patient was hypotensive in the ER and she was given IVF with 1 L NS 0.9%,
hydrocortisone 100 mg, required Levophed, also given Ofirmev + Zosyn. She was admitted to the ICU for further care. Compliance Director services consulted for additional management/recommendations.
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
hypercholesterolemia, hypertension, small bowel obstruction s/p lysis of adhesions, anxiety, GERD, rheumatoid arthritis, fibromyalgia, DM type II
Impression:
#Shock due to sepsis from viral gastroenteritis (possibly norovirus which is currently going around at her facility at [facility], per ID) - shock state now resolved
#Leukocytosis due to above
#Hyperbilirubinemia
#Elevated proBNP (no prior baseline available to compare to)
#Hypoalbuminemia (mild)
#Abnormal urinalysis with positive nitrites, 2+ leukocyte esterase and 50�60 urine WBC, likely due to asymptomatic bacteriuria
#History of RA on chronic prednisone
#DM type II
#GERD
#Hypothyroidism
#History of mild ARIANA (AHI: 12.1 events per hour via split-night sleep study in December 2015) treated with CPAP at 12 cmH2O
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
#1 mm nonobstructive left renal stone seen on CT A/P from 09/02/2024
Plan:
- Patient has been weaned off of vasopressors and is hemodynamically stable, and awake alert and following all commands in NAD
- Keep MAP>65
- ID consulted and given that patient has no current clinical signs of UTI or pneumonia and there was no acute pathology seen on CT abdomen/pelvis, no current indication for antibiotics at this time
- Follow-up blood culture + urine culture, both collected 09/02
- Supportive care with anti-emetics as needed, pain control, IVF as needed, encourage PO intake and continue with hydrocortisone with wean as she continues to remain stable
- If patient remains hemodynamic stable by tomorrow, then would continue weaning down on hydrocortisone with rapid taper
- Patient does take metoprolol at home and we should restart this to avoid beta-lynnette withdrawal
- Maintain SpO2 >90-94% - currently on room air
- Maintain MAP>65
- Trend LFTs and T. bili
- Given the cystic mass seen on the pancreas, recommend a nonurgent MRI to be done to further evaluate this
- Replete electrolytes with K>4, Mg>2
- Maintain euglycemia with goal BG 140-180
- Trend H/H and transfuse if needed to keep Hb>7g/dL; keep plt>20k, unless there is concern for bleeding then keep plt>50k
- prn nebulized bronchodilators - not currently bronchospastic
- Incentive spirometer encouraged 10x per hour for at least 4 hrs a day
- DVT ppx: LMWH
Patient recommended to follow-up with our office as last visit was on 10/12/[address] Bauer. This will be arranged for the patient.
Continue with close monitoring in the ICU given how critically ill she was on admission. If patient remains hemodynamically stable by tomorrow then we will downgrade at that time.
Total time spent today was 78 minutes for this encounter. Time includes reviewing laboratory test/imaging results, reviewing pertinent medical records, obtaining and reviewing medical history, performing an appropriate exam, ordering medications,
tests and procedures. Time also includes documentation of this encounter, coordinating patient care and communicating with other healthcare professionals. Total time does not include separately billed tests performed on this date of service.
Data:
CT abdomen/pelvis with IV contrast 09/02/2024:
No acute pathology of the abdomen or pelvis identified.
Cystic mass in the pancreas. Enlarged. Nonurgent MRI examination recommended if not previously performed. This may be benign or malignant.
Prior cholecystectomy. Stable
Too small to characterize hypodense right renal lesion likely a benign cyst. Stable
1 mm nonobstructing left renal stone. Stable
Appendectomy. Stable
Severe diverticulosis. Progressed
[2024-09-03] MEDS: NSS (PRESERVATIVE FREE) 10 ML IV (09:38)
[2024-09-03] MEDS: PROTONIX IV 40 MG IV (09:38)
[2024-09-03] MEDS: JANUVIA 50 MG PO (09:42)
[2024-09-03] MEDS: XALATAN OPHTHALMIC SOLUTION 1 DROP BOTH EYES (09:42)
[2024-09-03 09:57] LABS: Glucose - Point of Care 133 mg/dl (70-99)
--- NOTE | 2024-09-03 10:23 | CON.ID ---
Consultation
-
Date/Time Consultation Requested: 09/02/2024 2343
Date/Time Consultation Performed: 09/03/2024 1020
Requesting Provider: John Zamora
Performing Provider: Dr. Jolley
Reason for Consultation: Sepsis
Chief Complaint / Past History
History of Present Illness
Lyubov Maddox is a 79-year-old female being evaluated at the request of Dr. Zamora regarding sepsis. History is obtained from chart review, along with patient interview. Additional history was obtained from the patient's who is at
the bedside.
The patient presents to [facility] yesterday evening complaining of the acute onset of vomiting, nausea and diarrhea. She reports that started the day prior. Diarrhea was noted to be watery and without blood or mucus. She did admit to
some abdominal discomfort at the onset of symptomatology. She notes that she had slid off her chair secondary to the weakness and at that point in time EMS was called. It is noted that other people at the facility where she resides have been ill
with similar GI complaints.
In the ER she was found to be febrile to 102.9 and noted to have a leukocytosis. Additionally, she was found to be hypotensive. She was started on pressors, which have now been weaned to off.
Today, she reports she is feeling markedly improved. Nausea, vomiting and diarrhea have improved.
Past History
Additional Past Medical History:
Fibromyalgia
GERD
HTN
Dyslipidemia
IDDM
Hypothyroidism
Depression
Rheumatoid arthritis
Diverticulitis
TMJ
ARIANA
Polymyalgia rheumatica
Additional Past Surgical History:
Appendectomy
Bowel resection
Cholecystectomy
KESHA
Bilateral knee replacement
Spinal fusion
Bladder repair
Allergy History:
bee venom protein (honey bee) Allergy (Verified 09/02/24 17:25)
Shortness of Breath
ciprofloxacin [From Cipro] Allergy (Verified 09/02/24 17:25)
Unknown
glycine [From Gamunex] Allergy (Verified 09/02/24 17:25)
Hives
immune globulin,alpha (IgA) greater than 50 mcg/mL [From Gamunex] Allergy (Verified 09/02/24 17:25)
Hives
immune globulin,gamma (IgG) human [From Gamunex] Allergy (Verified 09/02/24 17:25)
Hives
lisinopril Allergy (Verified 09/02/24 17:25)
cough
meperidine [From Demerol] Allergy (Verified 09/02/24 17:25)
Nausea
nitrofurantoin [From Macrobid] Allergy (Verified 09/02/24 17:25)
SEE BELOW
prochlorperazine edisylate [From Compazine] Allergy (Verified 09/02/24 17:25)
agitation
Sulfa (Sulfonamide Antibiotics) Allergy (Verified 09/02/24 17:25)
Hives
Medications Reviewed: Yes
Current Antibiotics:
Zosyn
Vancomycin
Social History
Tobacco: Non-Smoker
Alcohol: None
Drug: None
Personal:
Living: With Family
Employment: Retired
Family History
Family History: Not Pertinent
Review of Systems
Vital Signs
Temp Pulse Resp BP Pulse Ox
98.7 F 77 13 92/49 97
09/03/24 07:34 09/03/24 06:00 09/03/24 06:00 09/03/24 05:30 09/03/24 06:00
Physical Exam
Physical Exam
Constitutional: No Acute Distress, Comfortable, Chronically Ill and Non-toxic
Cardiovascular: S1/S2; Negative S3/S4
Pulmonary: Non Labored
Gastrointestinal: Soft, Non Tender and Non Distended
Neurological: Awake and Alert
Psychological: Calm
.
Lab / Diagnostic Study Results
09/03/24 03:52
09/03/24 03:52
Abs Immat Gran (auto) 0.1 10^3/uL (0-0.05) H 09/02/24 20:02
Absolute Neuts (auto) 10.9 10^3/uL (1.4-6.5) H 09/02/24 20:02
Absolute Lymphs (auto) 0.5 10^3/uL (1.2-3.4) L 09/02/24 20:02
Absolute Monos (auto) 1.2 10^3/uL (0.1-0.6) H 09/02/24 20:02
Absolute Basos (auto) 0.0 10^3/uL (0-0.2) 09/02/24 20:02
Immature Gran % 1.0 % (0-0.5) H 09/02/24 20:02
Neutrophils % 84.5 % (42.2-75.2) H 09/02/24 20:02
Lymphocytes % 3.6 % (20.5-51.1) L 09/02/24 20:02
Monocytes % 9.2 % (1.7-9.3) 09/02/24 20:02
Eosinophils % 1.4 % (0-6) 09/02/24 20:02
Basophils % 0.3 % (0-2) 09/02/24 20:02
PT 14.6 Sec (11.4-14.6) 09/03/24 03:52
INR 1.11 09/03/24 03:52
Lactic Acid Cancelled 09/03/24 11:43
Procalcitonin 1.72 ng/ml (0.0-0.25) H 09/03/24 03:52
Ur Squamous Epith Cells 0-2 /LPF (Few) 09/02/24 21:25
Microbiology Results
Micro:
09/03/24 00:17 MRSA Screen - Pending
Nose
09/02/24 21:25 Urine Culture - Pending
Urine
09/02/24 19:40 Blood Culture - Pending
Blood/Venous
09/02/24 18:38 Influenza Types A & B (NADIA) - Final
Nasal Swab Negative for Influenza A & B, NAAT
Negative results must be combined with clinical observations
and patient history.
Nucleic Acid Amplification test (NAAT)performed on the
[employer] platform.
Imaging:
09/02/2024 CXR (portable): Congestive heart failure with mild interstitial edema. Nodular opacity in the left lower lobe which could represent asymmetric pulmonary edema, atelectasis, or developing pneumonia. However, follow-up would be advised to
assess resolution and to exclude the possibility of left lower lobe mass. Please see full dictation for additional detail. Film personally viewed.
Assessment / Plan
Acute onset of nausea, vomiting and diarrhea.
- Hx clinically consistent with Acute Norovirus infection.
Hypotension; improved
Leukocytosis
Elevated procalcitonin
Fibromyalgia
GERD
HTN
Dyslipidemia
IDDM
Hypothyroidism
Depression
Rheumatoid arthritis
Diverticulitis
TMJ
ARIANA
Polymyalgia rheumatica
Recommendations:
History and clinical presentation strongly suggestive of norovirus infection, especially with the rapid resolution of symptoms.
Any additional diarrhea can be sent for norovirus PCR, but it appears to have resolved at this time according to the patient.
Discontinue further antibiotics.
Continue with supportive care.
Will continue to monitor pending cultures in case antibiotics need to be reinitiated.
Care Review
Plan reviewed with: Nurse
--- NOTE | 2024-09-03 10:43 | PHA.VAN.IN ---
Assessment
- Assessment
Renal Function: Appears similar to baseline
Renal Function may be Overestimated due to: Obesity. BMI = 31.2
Maximum Temperature: 101.1
Minimum Temperature: 98
Concomitant Antimicrobials: Piperacillin-tazobactam
AUC Dosing Plan
- Dosing Variables
Dosing Weight (kg): 86.4
Dosing CrCl (ml/min): 82
Vd coefficient (L/kg): 0.6
- Empiric Dosing
Initial / Loading Dose: Vanc 2000mg given 09/03 at 0005
Maintenance Regimen: Vanc 1000mg IV q12H beginning 09/03 1800
Estimated AUC (mcg*h/mL): 551.74
Estimated Peak (mcg*h/mL): 33.21
Estimated Trough (mcg/ml): 14.97
Estimated Half Life (H): 9.6
- Monitoring
No levels ordered at this time: Consider levels after 09/04 1800 dose
Pharmacokinetics Vancomycin I
- -
Patient Age: 79
Patient Sex: Female
Vancomycin Day #: 1
Indication: Pulmonary/Respiratory
Requesting Provider: Sera
Pertinent Antimicrobial Allergies:
Sulfa = hives; Nitrofurantoin = fibromyalgia and hx of tendon tearing; Cipro = unknown
Height / Weight:
Height 5 ft 5.5 in
Actual Weight 86.4 kg
IBW in k.2
Adjusted BW in k.5
- Vital Signs / Lab Results
Temp Pulse Resp BP Pulse Ox
98.7 F 75 13 110/54 96
09/03/24 07:34 09/03/24 08:45 09/03/24 08:45 09/03/24 08:30 09/03/24 08:45
Lab Results - Hematology
09/02/24 09/02/24 09/03/24
19:40 20:02 03:52
WBC Cancelled 12.9 H 11.7 H
Lab Results - Chemistry
09/02/24 09/03/24
19:40 03:52
BUN 21 H 18 H
Creatinine 0.6 0.6
Estimated Creat Clear 83 82
Albumin 3.4 L 2.9 L
09/02/24 09/03/24 09/03/24
19:40 00:17 03:43
Lactic Acid 1.9 0.9 Cancelled
09/03/24 09/03/24
07:43 11:43
Lactic Acid Cancelled Cancelled
Lab Results - Urine
09/02/24
21:25
Urine Nitrite (Reflex) Positive A
Leukocyte Esterase Rfl 2+ A
Urine WBC (Reflex) 50-60 A
Ur Squamous Epith Cells 0-2
Urine Bacteria (Reflex) Many A
Microbiology Results
09/02/24 18:38 Influenza Types A & B (NADIA) - Final
Nasal Swab Negative for Influenza A & B, NAAT
Negative results must be combined with clinical observations
and patient history.
Nucleic Acid Amplification test (NAAT)performed on the
[facility] [employer] platform.
[2024-09-03] MEDS: NOVOLOG FLEXPEN-MODERATE RESISTANCE SC ×2 (13:13→16:57)
[2024-09-03 13:24] LABS: Glucose - Point of Care 147 mg/dl (70-99)
--- NOTE | 2024-09-03 16:29 | CM ---
Initial assessment was completed with pt and at bedside.
Pt and live in [facility]
Pt is indep with mobility and using a RW, and has a manager track to aide with ADLs 3xweekly thru her terminal make up operator care insurance.
All meals are provided by [employer]
DME includes RW, Showerchair, and raised toilet seat with bars.
VN; [facility] No SNF hx
PCP; Lyubov Liu
Pharm; Tamar Ro
PLAN; Return to home with [facility]
[2024-09-03 17:04] LABS: Glucose - Point of Care 139 mg/dl (70-99)
[2024-09-03] MEDS: LOVENOX 40 MG SC (18:21)
[2024-09-03] MEDS: LIPITOR 10 MG PO (18:21)
[2024-09-03] MEDS: LOPRESSOR 25 MG PO (18:21)
--- NOTE | 2024-09-03 18:38 | PTCARENOTE ---
Updated afternoon assessment, follow up vital sign trends and drip titration. Levophed, and neosynphrine weaned off thru day. VS as documented. Weaned off o2 thru day. Update with environmental specialist thru shift. Discuss vital sign trends and med history.
Follow up with pharmacy. New meds as ordered. Follow up PT/OT evaluation in am. Lab trends, ecg in am. Update with patient and at bedside. Continue to answer all questions provide emotional support and teaching as needed.
--- NOTE | 2024-09-03 19:53 | PTCARENOTE ---
Received pt via handoff. Pt AAOx3 able to LUND with generalized weakness, +2 edema in LE, palpable pulses in all extremities. NSR with runs of sinus tach. 95% on RA, lung sounds clear, slightly diminished at bases. Hypoactive bowel sounds in all 4Q.
Jackson CDI draining clear yellow urine. No gtts running at this. Pt in good spirits, call menjivar at bedside.
[2024-09-03] MEDS: TYLENOL 650 MG PO (21:28)
[2024-09-04] VITALS (18 sets, daily range): BP systolic 115–190; BP diastolic 56–109; PULSE 89; O2SAT 95; BMI 31.5
--- NOTE | 2024-09-04 | PTCARENOTE ---
All systems reassessed, medications administered, pt requested tylenol for shoulder and slight abdomen pain.
[2024-09-04 00:01] LABS: Glucose - Point of Care 163 mg/dl (70-99)
[2024-09-04] MEDS: SOLU-CORTEF 50 MG IV ×2 (00:20→05:47)
[2024-09-04 05:11] LABS: Hematocrit 35.4 % (37.0-47.0); Mean Corp Hgb Conc. 31.1 g/dL (33.0-37.0); Mean Corpuscular Hgb 29.8 pg (27.0-31.0); Mean Corpuscular Volume 95.9 fL (81.0-99.0); Mean Platelet Volume 9.8 fL (7.4-10.4); Platelet Count 207 10^3/uL (130-400); Red Blood Cell Count 3.69 10^6/uL (4.20-5.40); Red Cell Dist. Width 13.7 % (11.5-14.5)
[2024-09-04 05:19] LABS: ALT (SGPT) 18 U/L (0-35); AST (SGOT) 25 U/L (14-36); Albumin 2.8 g/dl (3.5-5.0); Alkaline Phosphatase 46 U/L (38-126); Blood Urea Nitrogen 20 mg/dl (7-17); Calcium 7.6 mg/dl (8.4-10.2); Carbon Dioxide 27 mmol/L (22-30); Chloride 104 mmol/L (98-107); Estimated Creatinine Clearance 82 ml/min; Glucose 184 mg/dl (70-99); Magnesium 2.5 mg/dl (1.6-2.3); Phosphorus 2.6 mg/dl (2.5-4.5); Potassium 3.8 mmol/L (3.5-5.1); Sodium 136 mmol/L (135-145); Total Bilirubin 0.9 mg/dl (0.2-1.3); Total Protein 4.6 g/dl (6.3-8.2); eGFR > 60.00
[2024-09-04] MEDS: NOVOLOG FLEXPEN-MODERATE RESISTANCE 1 UNITS SC (05:20)
--- NOTE | 2024-09-04 05:27 | PTCARENOTE ---
All systems reassessed, labs drawn, hygiene performed, call menjivar at bedside.
[2024-09-04 05:31] LABS: Glucose - Point of Care 194 mg/dl (70-99)
[2024-09-04] MEDS: SYNTHROID 25 MCG PO (05:47)
[2024-09-04] MEDS: JANUVIA 50 MG PO (07:25)
[2024-09-04] MEDS: LOPRESSOR 25 MG PO ×2 (07:25→18:50)
[2024-09-04] MEDS: PROTONIX IV 40 MG IV (07:26)
[2024-09-04] MEDS: XALATAN OPHTHALMIC SOLUTION 1 DROP BOTH EYES (07:26)
[2024-09-04] MEDS: NSS (PRESERVATIVE FREE) 10 ML IV (07:26)
--- NOTE | 2024-09-04 07:56 | PTCARENOTE ---
Received pt sleeping.Awakens to voice.Speech is appropriate.OOB to bathroom with walker with minimal assist.Gait is steady.SR-ST noted.Right midline intact.POX 94% on RA.Decreased breath sounds bibasilar.+ BM.Jackson draining yellow urine.Skin
integrity as documented.Plan of care discussed.
[2024-09-04] MEDS: NOVOLOG FLEXPEN-MODERATE RESISTANCE 3 UNITS SC (08:42)
[2024-09-04 08:52] LABS: Glucose - Point of Care 204 mg/dl (70-99)
--- NOTE | 2024-09-04 10:49 | W.PN.INTV ---
Documented by User: Kaylen Guerra MD, Resident 09/04/24 11:42
Today's Communication / Plan
Recommendations
Discontinue Hu discontinue Hu with voiding trial
Stress dose steroids discontinued�now on oral methylprednisolone 12 once daily
downgrade/discharge home at hospitalist discretion
Assessment
-
Assessment: 79-year-old female with a past medical history of IBS, allergic rhinitis, history of gastritis with history of hemorrhage, diverticulosis/diverticulitis, spinal stenosis, TMJ syndrome, hypertension, history of SBO s/p MIRTA, anxiety,
GERD, RA, fibromyalgia and DM type II who presents from [facility] with nausea, vomiting and diarrhea. She has been unable to eat. Blood sugar was 175 en route here to the hospital. She has been feeling very dehydrated. Symptoms have been going on
for about 1-2 days and she did have chills prior to arrival. In the ER she was febrile to 100.7 �F, pulse rate 97, breathing at 20 breaths/min, BP 116/58 and saturating 86% on room air. Saturations improved to 92% on 2 L/min. Initial vitals
showed WBC 12.9, troponin negative at 0.028, proBNP 2290, lipase 38, and urinalysis with positive nitrites, 2+ leukocyte esterase and urine WBC 50�60. COVID antigen was negative. Flu A/B swab also negative, and blood cultures were collected in
addition to urine culture. CXR showed concerns for CHF, and subsequent CT A/P showed dependent changes in the lungs with no acute pathology of the abdomen or pelvis. Patient was hypotensive in the ER and she was given IVF with 1 L NS 0.9%,
hydrocortisone 100 mg, required Levophed, also given Ofirmev + Zosyn. She was admitted to the ICU for further care. Neonatologist services consulted for additional management/recommendations.
Chronic conditions [employer]: Degenerative joint disease, migraine headaches, IBS, allergic rhinitis, small umbilical + inguinal hernia, gastritis with history of hemorrhage, diverticulosis with diverticulitis, spinal stenosis, TMJ syndrome,
hypercholesterolemia, hypertension, small bowel obstruction s/p lysis of adhesions, anxiety, GERD, rheumatoid arthritis, fibromyalgia, DM type II, idiopathic tachycardia, lower extremity swelling secondary to skilled nursing steroid use
Impression:
#Shock due to sepsis from viral gastroenteritis (possibly norovirus which is currently going around at her facility at [facility], per ID) - shock state now resolved
#Leukocytosis due to above
#Hyperbilirubinemia
#Elevated proBNP (no prior baseline available to compare to)
#Hypoalbuminemia (mild)
#Abnormal urinalysis with positive nitrites, 2+ leukocyte esterase and 50�60 urine WBC, likely due to asymptomatic bacteriuria
#History of RA on chronic prednisone
#DM type II
#GERD
#Hypothyroidism
#History of mild ARIANA (AHI: 12.1 events per hour via split-night sleep study in December 2015) treated with CPAP at 12 cmH2O
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
#1 mm nonobstructive left renal stone seen on CT A/P from 09/02/2024
Plan:
Neuro
-AAOx3
-Conversant, no complaints, ready to go home
Respiratory
-Acute hypoxemic respiratory insufficiency (In ED)
-Chest xray on admission suggestive of CHF and left lower lobe nodular opacity which could represent asymmetric pulmonary edema, atelectasis, or developing pneumonia
-Previously required O2 now satting well on room air
-Keep O2 sats >90-94%
-Hx ARIANA tolerant of CPAP
-CPAP at night 12 cmH2O
Cardiovascular
-Shock due to sepsis from viral gastroenteritis requiring pressors
-Off pressors
-Keep MAP >65
-Now Hypertensive - restarted on metoprolol 25 BID - consider restarting home losartan 50 BID
-Chest x-ray suspect pulmonary edema suspicious of CHF
-Previously echo 06/16/24 LVEF 60-65% Pulm artery pressure 36-41mmHg
-No known diagnosis of CHF per patient
-Idiopathic tachycardia
-Follows with automobile or truck rental dispatcher for tachycardia - no known dx of CHF
-Continue metoprolol
-Hx HTN
-Previous antihypertensive medications held -now hypertensive, continue metoprolol 25 twice daily, consider restarting losartan 50 BID
GI
-Shock due to sepsis from viral gastroenteritis
-Suspected norovirus with recent outbreak at pts living facility [facility]
-Currently, no nausea vomiting diarrhea -had a formed bowel movement this morning
-Hyperbilirubinemia
-Resolved
-Hx GERD/hemorrhage secondary to gastritis
-Transition IV pantoprazole to home dose 40 PO BID
-Pancreatic mass
-outpatient f/u
Renal
-D/c hu and voiding trial
-Cr at baseline
-Follow I&Os
-Abnormal urinalysis
-positive nitrites, 2+ leukocyte esterase and 50�60 urine WBC
-likely asymptomatic bacteriuria
ID
-Shock due to sepsis from viral gastroenteritis
-Leukocytosis
-Chest x-ray LLL nodular opacity cannot rule out pneumonia
-Broad-spectrum antibiotics discontinued per ID for high clinical suspicion of viral gastritis as source of sepsis with UTI or pneumonia less likely especially given quick recovery over the weekend.
-Afebrile, WBC is now within normal limits
-blood cultures and urine culture pending
-Continue to monitor WBC and temp off antibiotics
Hemeonc:
-DVT lovenox 40
-Hg stable - transfuse <7
-Ptl stable - transfuse <20 unless signs of active bleeding then <50
Endocrine:
-Hx hypothyroidism
-Cont home levothyroxine 25 qd
-Hx RA and PMR on chronic steroids
-Stress dose steroids provided hydrocortisone 50 every 6 hours-today is discontinued
-Started on methylprednisolone 12 mg daily
-Furosemide 20 every 48 hours home dose is for leg swelling associated with chronic steroid therapy -placed on hold while on pressors -restart after discharge
-Hx NIDDM steroid induced
-SSI
-Cont home Januvia
-Monitor BG avoid hypoglycemia
Today, patient is off pressors and clinically stable. Patient wishes to go home. Ready to downgrade or discharge home at hospitalist discretion.
Imaging:
CT abdomen/pelvis with IV contrast 09/02/2024:
No acute pathology of the abdomen or pelvis identified.
Cystic mass in the pancreas. Enlarged. Nonurgent MRI examination recommended if not previously performed. This may be benign or malignant.
Prior cholecystectomy. Stable
Too small to characterize hypodense right renal lesion likely a benign cyst. Stable
1 mm nonobstructing left renal stone. Stable
Appendectomy. Stable
Severe diverticulosis. Progressed
Chest x-ray 09/02/24 - Congestive heart failure with mild interstitial edema. Nodular opacity in the left lower lobe which could represent asymmetric pulmonary edema, atelectasis, or developing pneumonia. However, follow-up would be advised to
assess resolution and to exclude the possibility of left lower lobe mass.
Subjective Dataa
Subjective Data
Date of Service:
Date of Service: September 04, 2024
Patient is awake, alert and oriented. She is conversant, feels well and is ready to go home. She had a formed bowel movement this morning and suspects her episodes of diarrhea are longer. She has a good appetite and enjoyed her breakfast this
morning.
Review of Systems
General: Fever (n), Sweats (n), Chills (n), Satisfactory Appetite and Pain (n)
HEENT: Oral/Throat Pain (n)
Cardiopulmonary: Dyspnea (n), Cough (n), Chest Pain (n) and Edema (n)
GI: Abdominal Pain (n), Nausea (n), Vomiting (n) and Diarrhea (n)
Neuro: Headache (n), Weakness (n) and Confused (n)
Objective Data
Data Reviewed
Vital Signs / I&O / Oxygen:
Vital Signs
Temp Pulse Resp BP Pulse Ox
99.2 F 89 25 141/109 94
09/04/24 07:26 09/04/24 07:30 09/04/24 07:30 09/04/24 07:00 09/04/24 07:52
Intake and Output
09/03/24 09/04/24 09/05/24
06:59 06:59 06:59
Intake Total 2100.5 / 2100.5 590 / 590 480 / 480
Output Total 650 / 650 665 / 665 170 / 170
Balance 1450.5 / 1450.5 -75 / -75 310 / 310
SaO2 94
Nasal Cannula flow liters per 5
minute
Physical Exam
General: Comfortable and Good Appetite
HEENT: Normocephalic
Cardiovascular: S1-S2, Regular Rhythm and Peripheral Edema (n)
Respiratory: Wheeze (End expiratory wheezing) and Crackles (n)
GI: Soft, Non Distended, Non Tender and Normal Bowel Sounds
Neurology: AO x 3
Skin: Warm and Good Color
Labs/Micro/Reports
Microbiology
09/03/24 00:17 Nose MRSA Screen - Final
No Methicillin Resistant Staphylococcus aureus isolated.
09/02/24 19:40 Blood/Venous Blood Culture - Preliminary
No Growth in 24 hours- Final report to follow
09/02/24 18:38 Nasal Swab Influenza Types A & B (NADIA) - Final
Negative for Influenza A & B, NAAT
Negative results must be combined with clinical observations
and patient history.
Nucleic Acid Amplification test (NAAT)performed on the
[employer] platform.

Documented by User: Sai Fox MD 09/04/24 13:38
Today's Communication / Plan
Recommendations
Discontinue Hu discontinue Hu with voiding trial
Stress dose steroids discontinued�now on oral methylprednisolone 12 once daily
downgrade/discharge home at hospitalist discretion
Defer antibiotics to infectious disease-E. coli positive in the urine
Assessment
-
Assessment: 79-year-old female with a past medical history of IBS, allergic rhinitis, history of gastritis with history of hemorrhage, diverticulosis/diverticulitis, spinal stenosis, TMJ syndrome, hypertension, history of SBO s/p MIRTA, anxiety,
GERD, RA, fibromyalgia and DM type II who presents from [facility] with nausea, vomiting and diarrhea. She has been unable to eat. Blood sugar was 175 en route here to the hospital. She has been feeling very dehydrated. Symptoms have been going on
for about 1-2 days and she did have chills prior to arrival. In the ER she was febrile to 100.7 �F, pulse rate 97, breathing at 20 breaths/min, BP 116/58 and saturating 86% on room air. Saturations improved to 92% on 2 L/min. Initial vitals
showed WBC 12.9, troponin negative at 0.028, proBNP 2290, lipase 38, and urinalysis with positive nitrites, 2+ leukocyte esterase and urine WBC 50�60. COVID antigen was negative. Flu A/B swab also negative, and blood cultures were collected in
addition to urine culture. CXR showed concerns for CHF, and subsequent CT A/P showed dependent changes in the lungs with no acute pathology of the abdomen or pelvis. Patient was hypotensive in the ER and she was given IVF with 1 L NS 0.9%,
hydrocortisone 100 mg, required Levophed, also given Ofirmev + Zosyn. She was admitted to the ICU for further care. Neonatologist services consulted for additional management/recommendations.
Chronic conditions [employer]: Degenerative joint disease, migraine headaches, IBS, allergic rhinitis, small umbilical + inguinal hernia, gastritis with history of hemorrhage, diverticulosis with diverticulitis, spinal stenosis, TMJ syndrome,
hypercholesterolemia, hypertension, small bowel obstruction s/p lysis of adhesions, anxiety, GERD, rheumatoid arthritis, fibromyalgia, DM type II, idiopathic tachycardia, lower extremity swelling secondary to usability strategist steroid use
Impression:
#Shock due to sepsis from viral gastroenteritis (possibly norovirus which is currently going around at her facility at [facility], per ID) - shock state now resolved
#Leukocytosis due to above
#Hyperbilirubinemia
#Elevated proBNP (no prior baseline available to compare to)
#Hypoalbuminemia (mild)
#Abnormal urinalysis with positive nitrites, 2+ leukocyte esterase and 50�60 urine WBC, likely due to asymptomatic bacteriuria
#History of RA on chronic prednisone
#DM type II
#GERD
#Hypothyroidism
#History of mild ARIANA (AHI: 12.1 events per hour via split-night sleep study in December 2015) treated with CPAP at 12 cmH2O
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
#1 mm nonobstructive left renal stone seen on CT A/P from 09/02/2024
Plan:
Neuro
-AAOx3
-Conversant, no complaints, ready to go home
Respiratory
-Acute hypoxemic respiratory insufficiency (In ED)
-Chest xray on admission suggestive of CHF and left lower lobe nodular opacity which could represent asymmetric pulmonary edema, atelectasis, or developing pneumonia
-Previously required O2 now satting well on room air
-Keep O2 sats >90-94%
-Hx ARIANA tolerant of CPAP
-CPAP at night 12 cmH2O
Cardiovascular
-Shock due to sepsis from viral gastroenteritis requiring pressors
-Off pressors
-Keep MAP >65
-Now Hypertensive - restarted on metoprolol 25 BID - consider restarting home losartan 50 BID
-Chest x-ray suspect pulmonary edema suspicious of CHF
-Previously echo 06/16/24 LVEF 60-65% Pulm artery pressure 36-41mmHg
-No known diagnosis of CHF per patient
-Idiopathic tachycardia
-Follows with automobile or truck rental dispatcher for tachycardia - no known dx of CHF
-Continue metoprolol
-Hx HTN
-Previous antihypertensive medications held -now hypertensive, continue metoprolol 25 twice daily, consider restarting losartan 50 BID
GI
-Shock due to sepsis from viral gastroenteritis
-Suspected norovirus with recent outbreak at pts living facility [facility]
-Currently, no nausea vomiting diarrhea -had a formed bowel movement this morning
-Hyperbilirubinemia
-Resolved
-Hx GERD/hemorrhage secondary to gastritis
-Transition IV pantoprazole to home dose 40 PO BID
-Pancreatic mass
-outpatient f/u
Renal
-D/c hu and voiding trial
-Cr at baseline
-Follow I&Os
-Abnormal urinalysis
-positive nitrites, 2+ leukocyte esterase and 50�60 urine WBC
-likely asymptomatic bacteriuria
ID
-Shock due to sepsis from viral gastroenteritis
-Leukocytosis
-Chest x-ray LLL nodular opacity cannot rule out pneumonia
-Broad-spectrum antibiotics discontinued per ID for high clinical suspicion of viral gastritis as source of sepsis with UTI or pneumonia less likely especially given quick recovery over the weekend.
-Afebrile, WBC is now within normal limits
-Urine culture resulted with E. coli. Abnormal UA. Suggestive of urinary tract infection.
-Blood culture negative
-Defer antibiotics to infectious disease.
-Continue to monitor WBC and temp off antibiotics
Hemeonc:
-DVT lovenox 40
-Hg stable - transfuse <7
-Ptl stable - transfuse <20 unless signs of active bleeding then <50
Endocrine:
-Hx hypothyroidism
-Cont home levothyroxine 25 qd
-Hx RA and PMR on chronic steroids
-Stress dose steroids provided hydrocortisone 50 every 6 hours-today is discontinued
-Started on methylprednisolone 12 mg daily
-Furosemide 20 every 48 hours home dose is for leg swelling associated with chronic steroid therapy -placed on hold while on pressors -restart after discharge
-Hx NIDDM steroid induced
-SSI
-Cont home Januvia
-Monitor BG avoid hypoglycemia
Today, patient is off pressors and clinically stable. Patient wishes to go home. Ready to downgrade or discharge home at hospitalist discretion.
Imaging:
CT abdomen/pelvis with IV contrast 09/02/2024:
No acute pathology of the abdomen or pelvis identified.
Cystic mass in the pancreas. Enlarged. Nonurgent MRI examination recommended if not previously performed. This may be benign or malignant.
Prior cholecystectomy. Stable
Too small to characterize hypodense right renal lesion likely a benign cyst. Stable
1 mm nonobstructing left renal stone. Stable
Appendectomy. Stable
Severe diverticulosis. Progressed
Chest x-ray 09/02/24 - Congestive heart failure with mild interstitial edema. Nodular opacity in the left lower lobe which could represent asymmetric pulmonary edema, atelectasis, or developing pneumonia. However, follow-up would be advised to
assess resolution and to exclude the possibility of left lower lobe mass.
--- NOTE | 2024-09-04 12:00 | PTCARENOTE ---
Pt assessed.No change in assessment noted.
[2024-09-04] MEDS: MEDROL 12 MG PO (12:45)
[2024-09-04 12:52] LABS: Glucose - Point of Care 120 mg/dl (70-99)
--- NOTE | 2024-09-04 14:03 | W.PN.HOSP.TC ---
Addendum entered and electronically signed by Mary Palma MD 09/04/24 18:01:
Dictation- [id number]
Addendum entered and electronically signed by Mary Palma MD 09/04/24 17:57:
More than 30 minutes spent in discharge including
Final examination of the patient
Summarizing hospital stay
Instructions for continuing care to all relevant caregivers
Preparation of discharge records, prescriptions, and referral forms
Total time spent (in minutes): 35 min
Addendum entered and electronically signed by Mary Palma MD 09/04/24 17:26:
Spoke to patient.
She does not take Lasix anymore. Will let her know to take as needed for fluid retention
Meds reviewed she takes Cimzia now and not Kevzara
Methylprednisolone is 8 mg alternating with 6 mg daily
She takes Hiprex 1 g twice daily
She takes losartan 50 mg only daily now
Patient's blood pressure is high because she did not get losartan today.
She is feeling well
She really wants to go home tonight as long as blood pressure is stable.
Discussed with infectious disease earlier today
Earlier note Correction- Polymyalgia rheumatica-continue steroids methylprednisolone 20 mg daily ( Should be 12 mg ).
Original Note:
Today's Communication/Plan
-
Rpt CXR
Possible discharge today
Await ID rounds too
Assessment / Plan
Assessment / Plan
79-year-old female presented to the hospital with abdominal discomfort, nausea and vomiting and weakness. She was found to be hypotensive in the ER and was admitted.
CAT scan of the abdomen pelvis-no acute pathology. Cystic mass in the pancreas and large. Nonemergent MRI. Prior cholecystectomy. 1 mm nonobstructing left renal stone. Too small to characterize right lower renal lesion. Appendectomy. Severe
diverticulosis.
Chest [id number] heart failure with mild interstitial edema. Nodular opacity in the left lower lobe could represent asymmetric pulmonary edema atelectasis or pneumonia.
Echo 06/16/2024-normal biventricular size and systolic function. Stage I diastolic dysfunction. Mild functional MS. Mild pulmonary hypertension. Pulmonary artery pressure 36 to 41 mmHg.
CVS: S1-S2 normal
Chest: CTA B/L
Abdomen: Soft, NT / Bowel sounds present
Extremities: mild pedal edema, normal pulses
# Norovirus infection
With rapid resolution of symptoms
Antibiotics discontinued
Procalcitonin was slightly elevated
# Abnormal urine analysis in the setting of diarrhea-E. coli noted on urine culture. But she had diarrhea. Mild dysuria on Wednesday once. Catheter removed now. Wait till she passes urine to see symptoms.
# Hypotension-resolved likely hypovolemic shock-patient off of pressors.
# Chronic HFpEF-continue Lasix, losartan 50 mg twice daily, metoprolol 25 mg twice daily. Pt denies being on Lasix. Will restart
# Fibromyalgia
# GERD-continue PPI
# Hypertension-restart losartan 50 mg twice daily, metoprolol 25 mg twice daily
# Dyslipidemia-continue simvastatin
# Diabetes-continue Januvia, Accu-Cheks and sliding scale coverage
# Hypothyroidism-continue Synthroid 25 mcg daily
# Rheumatoid arthritis-continue Kevzara as outpatient, methylprednisolone 20 mg daily. Off Stress dose steroids.
# Diverticulosis
# History of TMJ
# Sleep apnea-continue CPAP
# Polymyalgia rheumatica-continue steroids methylprednisolone 20 mg daily
# DVT prophylaxis-Lovenox
# Full code
D/W RN at bed side
D/W ID
Anticipated Discharge: Today
Subjective/Interval History
-
Date of Service: September 04, 2024
Objective Data
-
Labs:
Laboratory Results
09/04/24 09/04/24
04:51 06:00
WBC 9.0 Pending
Hgb 11.0 L Pending
Hct 35.4 L Pending
Plt Count 207 Pending
Sodium 136 Pending
Potassium 3.8 Pending
Chloride 104 Pending
Carbon Dioxide 27 Pending
BUN 20 H Pending
Creatinine 0.5 L Pending
Glucose 184 H Pending
Calcium 7.6 L Pending
Total Bilirubin 0.9 Pending
AST 25 Pending
ALT 18 Pending
Alkaline Phosphatase 46 Pending
Vital Signs:
Vital Signs
Temp Pulse Resp BP Pulse Ox
99.2 F 67 17 155/78 94
09/04/24 07:26 09/04/24 12:45 09/04/24 12:45 09/04/24 12:15 09/04/24 07:52
I&O
09/03/24 09/04/24 09/05/24
06:59 06:59 06:59
Intake Total 2100.5 / 2100.5 590 / 590 480 / 480
Output Total 650 / 650 665 / 665 170 / 170
Balance 1450.5 / 1450.5 -75 / -75 310 / 310
[2024-09-04] MEDS: LASIX 40 MG PO (14:16)
--- NOTE | 2024-09-04 14:23 | W.PN.ID1 ---
Date of Service
Date of Service: September 04, 2024
Today's Communication
Observe off antibiotics.
Assessment / Plan
Acute onset of nausea, vomiting and diarrhea.
- Hx clinically consistent with Acute Norovirus infection.
Hypotension; improved
Leukocytosis
Elevated procalcitonin
Fibromyalgia
GERD
HTN
Dyslipidemia
IDDM
Hypothyroidism
Depression
Rheumatoid arthritis
Diverticulitis
TMJ
ARIANA
Polymyalgia rheumatica
Recommendations:
History and clinical presentation strongly suggestive of norovirus infection, especially with the rapid resolution of symptoms.
Continue with supportive care.
Patient without urinary symptoms. No need to treat recovered bacteria.
����������������������������������������������������������
Chief Complaint
-: Other (N/V/D)
Subjective / Review of Systems
Patient seen and examined. Overall feeling improved. No current nausea, vomiting or diarrhea. No dysuria.
Review of Systems: No Fever and No Chills
Vital Signs / Physical Exam
Vital Signs
Vital Signs
Temp Pulse Resp BP Pulse Ox
99.2 F 67 17 155/78 94
09/04/24 07:26 09/04/24 12:45 09/04/24 12:45 09/04/24 12:15 09/04/24 07:52
Physical Exam
Constitutional: No Acute Distress, Comfortable and Non-toxic
Eyes: Sclera Anicteric
Pulmonary: Non Labored
Gastrointestinal: Non Distended
Extremities: Edema (Markedly improved bilateral lower extremities) and Erythema ( Right lower extremity; Improved)
Neurological: Awake and Alert
Psychological: Calm
Objective Data
Lab Data
PT 14.6 Sec (11.4-14.6) 09/03/24 03:52
INR 1.11 09/03/24 03:52
APTT 35.5 Sec (23.4-35.0) H 09/03/24 03:52
Estimated Creat Clear 82 ml/min 09/04/24 04:51
Lactic Acid Cancelled 09/03/24 11:43
Total Bilirubin 0.9 mg/dl (0.2-1.3) 09/04/24 04:51
AST 25 U/L (14-36) 09/04/24 04:51
ALT 18 U/L (0-35) 09/04/24 04:51
Alkaline Phosphatase 46 U/L (38-126) 09/04/24 04:51
Most recent labs reviewed.
Micro Results:
09/02/24 21:25 Urine Culture - Preliminary
Urine Escherichia coli
09/03/24 00:17 MRSA Screen - Final
Nose No Methicillin Resistant Staphylococcus aureus isolated.
09/04/24 04:51 Blood Culture - Pending
Blood/Venous
09/02/24 19:40 Blood Culture - Preliminary
Blood/Venous No Growth in 24 hours- Final report to follow
09/02/24 18:38 Influenza Types A & B (NADIA) - Final
Nasal Swab Negative for Influenza A & B, NAAT
Negative results must be combined with clinical observations
and patient history.
Nucleic Acid Amplification test (NAAT)performed on the
[employer] platform.
Imaging:
09/02/2024 CXR (portable): Congestive heart failure with mild interstitial edema. Nodular opacity in the left lower lobe which could represent asymmetric pulmonary edema, atelectasis, or developing pneumonia. However, follow-up would be advised to
assess resolution and to exclude the possibility of left lower lobe mass. Please see full dictation for additional detail. Film personally viewed.
Care Review
Plan reviewed with: Physician (Hospitalist)
--- NOTE | 2024-09-04 15:35 | CM ---
Addendum entered by Antwon Graves 09/04/24 16:24:
Please fax discharge instructions to [facility] at [phone]
IMM reviewed placed on chart, pt has a copy.
D/C plan: return back to her living arrangement at [facility] with [facility] and family support.
Original Note:
CM following re: discharge planning.
Reviewed pt's chart, met with pt.
PT and OT evaluations noted - home PT/OT recommended.
Pt is aware, expressed her agreement. pt is known to [facility]. referral to [facility] made.
D/C plan: return back to her living arrangement at [facility] with [facility] and family support.
CM will follow with discharge plan updates as needed
--- NOTE | 2024-09-04 16:02 | PTCARENOTE ---
Pt assessed.No change in assessment noted.Pt voided small amount on toilet.Bladder scan post void [address] Palma made aware. 2 view CXR completed.Echo in progress.
--- NOTE | 2024-09-04 16:11 | VNURNOTE ---
Home Health Liaison called patient's cell, no answer. Liaison spoke with patient's spouse to discuss [facility] nurse/therapy, visits, schedule and homebound status. He is agreeable and understands that visits at home will be 2-3 x per week to assess and
teach medical management.
[facility] brochure provided with contact information. Spouse Ed is aware that [facility] will contact them for start of care in 1-2 days after discharge from . He confirms they have a scale at home but unsure if it needs new batteries. Will note on referral
to follow up at start of care visit. [facility] referral completed in [facility].
[2024-09-04] MEDS: LIPITOR 10 MG PO (17:16)
[2024-09-04] MEDS: LOVENOX 40 MG SC (17:17)
[2024-09-04] MEDS: COZAAR 50 MG PO (17:17)
[2024-09-04] MEDS: MAGNESIUM OXIDE 400 MG PO (17:17)
[2024-09-04] MEDS: APRESOLINE 5 MG IV (17:18)
[2024-09-04 17:41] LABS: Glucose - Point of Care 144 mg/dl (70-99)
--- NOTE | 2024-09-04 17:56 | W.DS.TRANS ---
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
-
Discharge Instructions:
Discharge Diagnosis/Procedures Norovirus infection
Chronic HFpEF
Hypertension
GERD
Dyslipidemia
Diabetes
Hypothyroidism
From an arthritis
Diverticulosis
Sleep apnea
1 marginal medical
Diet Restrict fluids to 64 oz,2 Gram Sodium
Activity As tolerated
Driving Restrictions As prior to admission
Other Services VN
Specialty Instructions Weigh Daily
Instructions:
Stand-Alone Forms:
Changes to Home Medications: No
Discharge Medications:
DC Medications w/original date entered in [facility]
simvastatin 10 mg tablet (Zocor) 10 mg PO QPM High cholesterol 02/13/08
levothyroxine 25 mcg tablet 25 mcg PO DAILY@0500 Thyroid 05/30/20
potassium chloride 10 mEq tablet,extended release(part/cryst) 10 meq PO TID Electrolyte Repletion ##0 05/30/20
metoprolol tartrate 25 mg tablet 25 mg PO BID #60 tabs 11/16/22
pantoprazole 40 mg tablet,delayed release (Protonix) 40 mg PO BID Gastrointestinal Issue 12/30/22
acetaminophen 325 mg tablet (Tylenol) 325 mg PO HSPRN PRN MILD PAIN 06/24/23
calcium citrate 250 mg PO QPM Supplement 06/24/23
cyclosporine 0.05 % eye drops in a dropperette (Restasis) 1 drp BOTH EYES [id number] PRN DRY EYES 06/24/23
latanoprost 0.005 % eye drops 1 drp BOTH EYES DAILY Eye Condition 06/24/23
magnesium oxide 400 mg PO QPM Electrolyte Repletion 06/24/23
sitagliptin phosphate 50 mg tablet (Januvia) 50 mg PO DAILY Diabetes 06/24/23
certolizumab pegol 200 mg/mL subcutaneous syringe kit (Cimzia) 200 mg SC MONTHLY RA #1 ea 09/04/24
furosemide 20 mg tablet 20 mg PO .[id number] PRN Fluid Retention/Swelling #0 tabs 09/04/24
losartan 50 mg tablet 50 mg PO DAILY Blood pressure #0 tabs 09/04/24
methenamine hippurate 1 gram tablet 1 g PO BID Urinary issue #30 tabs 09/04/24
methylprednisolone 4 mg tablet 6 mg (1.5 x 4 mg) PO Q48H Autoimmune Disorder #0 tabs 09/04/24
methylprednisolone 8 mg tablet 8 mg PO Q48H PMR and RA #30 tabs 09/04/24
pyridoxine (vitamin B6) 25 mg tablet 25 mg PO DAILY Supplement #30 tabs 09/04/24
Home Medication Changes
Pending Results: Yes
Additional Pending Results:
final Blood Cx
[2024-09-04] MEDS: TYLENOL 650 MG PO (18:59)
--- NOTE | 2024-09-04 19:17 | PTCARENOTE ---
Pt given CHF packet.Fluid restriction and Lasix discussed.Pt c/o sore back.Requested and received Tylenol.
== END 2024-09-04 19:21 | disposition home health service (06) | DRG 871 ==
LOC: ICU 22:20
PROVIDERS: Nurse Practitioner Primary Care; ADMITTING PHYSICIAN Internal Medicine; ATTENDING PHYSICIAN Hospitalist; CONSULT PHYSICIAN Internal Medicine Critical Care Medicine; CONSULT PHYSICIAN Internal Medicine Infectious Disease; EMERGENCY PHYSICIAN Emergency Medicine; FAMILY PHYSICIAN Family Medicine
DX: A41.89 Other specified sepsis (principal); R65.21 Severe sepsis with septic shock; A08.11 Acute gastroenteropathy due to Norwalk agent; D84.9 Immunodeficiency, unspecified; I50.32 Chronic diastolic (congestive) heart failure; R17 Unspecified jaundice; M06.9 Rheumatoid arthritis, unspecified; E11.9 Type 2 diabetes mellitus without complications; E03.9 Hypothyroidism, unspecified; K21.9 Gastro-esophageal reflux disease without esophagitis; M35.3 Polymyalgia rheumatica; R09.02 Hypoxemia; E78.00 Pure hypercholesterolemia, unspecified; E86.0 Dehydration; F32.A Depression, unspecified; G43.909 Migraine, unspecified, not intractable, without status migrainosus; G47.33 Obstructive sleep apnea (adult) (pediatric); I11.0 Hypertensive heart disease with heart failure; K57.30 Diverticulosis of large intestine without perforation or abscess without bleeding; K58.9 Irritable bowel syndrome, unspecified; M79.7 Fibromyalgia; R06.89 Other abnormalities of breathing; Z11.52 Encounter for screening for COVID-19; Z98.1 Arthrodesis status; Z96.653 Presence of artificial knee joint, bilateral; Z88.1 Allergy status to other antibiotic agents; Z88.2 Allergy status to sulfonamides; Z79.84 Long term (current) use of oral hypoglycemic drugs; Z79.52 Long term (current) use of systemic steroids; Z79.890 Hormone replacement therapy; Z79.899 Other long term (current) drug therapy
CPT/HCPCS: 71045; 71046; 74177; 80053; 81003; 81015; 82533; 82962; 83605; 83690; 83735; 83880; 84100; 84145; 84484; 85025; 85027; 85610; 85730; 87040; 87070; 87077; 87086; 87186; 87502; 87811; 93005; 93306; 96361; 96365; 96367; 96375; 97163; 97166; 99291; Q9967

== ENCOUNTER → 2024-10-02 08:35 | Outpatient (REF) | payer MEDICARE, SELFPAY | LOC: RAD 08:35 | PROVIDERS: ATTENDING PHYSICIAN Family Medicine | DX: R91.1 Solitary pulmonary nodule (principal); N39.0 Urinary tract infection, site not specified | CPT/HCPCS: 36415; 71046; 87077; 87086; 87186 ==

== ENCOUNTER → 2024-10-20 10:46 | Outpatient (REF) | payer MEDICARE, SELFPAY ==
[2024-10-20 17:16] LABS: Urine Albumin Trace (Neg - Trace); Urine Bilirubin Negative (Negative); Urine Character Slightly Cloudy (Clear); Urine Color Yellow; Urine Glucose Negative (Negative); Urine Ketone Negative (Negative); Urine Leukocyte 2+ (Negative); Urine Nitrite Positive (Negative); Urine Occult Blood 1+ (Negative); Urine Urobilinogen Negative (Neg - 1+); Urine pH 6.5 (5.0-9.0)
[2024-10-20 17:29] LABS: Urine Bacteria Many (Negative); Urine Squamous Cell 0-2 /LPF (Few); Urine White Cell >100 /HPF (0-5)
== END ==
LOC: OLABPV 10:46
PROVIDERS: ATTENDING PHYSICIAN Urology
DX: N39.0 Urinary tract infection, site not specified (principal)
CPT/HCPCS: 81003; 81015; 87077; 87086; 87186

== ENCOUNTER → 2024-10-25 11:40 | Outpatient (REF) | payer MEDICARE, SELFPAY | LOC: PAVMRI 11:40 | PROVIDERS: ATTENDING PHYSICIAN Family Medicine | DX: K86.2 Cyst of pancreas (principal) | CPT/HCPCS: 74183; A9575 ==

== ENCOUNTER → 2024-11-08 10:02 | Outpatient (REF) | payer MEDICARE, SELFPAY ==
[2024-11-08 11:05] LABS: ALT (SGPT) 21 U/L (0-35); AST (SGOT) 24 U/L (14-36); Albumin 3.2 g/dl (3.5-5.0); Alkaline Phosphatase 59 U/L (38-126); Blood Urea Nitrogen 15 mg/dl (7-17); Calcium 8.8 mg/dl (8.4-10.2); Carbon Dioxide 28 mmol/L (22-30); Chloride 101 mmol/L (98-107); Glucose 104 mg/dl (70-99); Potassium 4.1 mmol/L (3.5-5.1); Sodium 135 mmol/L (135-145); Total Bilirubin 0.8 mg/dl (0.2-1.3); eGFR > 60.00
[2024-11-08 11:41] LABS: Glycohemoglobin (HgbA1c) 7.3 % (4.0-5.6)
== END ==
LOC: OLABPV 10:02
PROVIDERS: ATTENDING PHYSICIAN Family Medicine
DX: E11.9 Type 2 diabetes mellitus without complications (principal); I10 Essential (primary) hypertension; D84.9 Immunodeficiency, unspecified
CPT/HCPCS: 36415; 80053; 83036

== ENCOUNTER → 2024-11-14 15:14 | Outpatient (REF) | payer MEDICARE, SELFPAY | LOC: RAD 15:14 | PROVIDERS: ATTENDING PHYSICIAN Family Medicine | DX: M79.671 Pain in right foot (principal); R22.41 Localized swelling, mass and lump, right lower limb | CPT/HCPCS: 73630 ==

== ENCOUNTER → 2024-12-01 09:53 | Outpatient (REF) | payer MEDICARE, SELFPAY ==
[2024-12-01 12:00] LABS: % Basophils 0.7 % (0-2); % Eosinophils 2.1 % (0-6); % Immature Granulocytes 0.5 % (0-0.5); % Lymphocytes 30.1 % (20.5-51.1); % Monocytes 9.7 % (1.7-9.3); % Neutrophils 56.9 % (42.2-75.2); Absolute Basophils 0.1 10^3/uL (0-0.2); Absolute Eosinophils 0.2 10^3/uL (0-0.7); Absolute Immature Granulocytes 0.1 10^3/uL (0-0.05); Absolute Lymphocytes 3.2 10^3/uL (1.2-3.4); Absolute Neutrophils 6.1 10^3/uL (1.4-6.5); Hematocrit 41.4 % (37.0-47.0); Hemoglobin 12.7 g/dL (12.0-16.0); Mean Corp Hgb Conc. 30.7 g/dL (33.0-37.0); Mean Corpuscular Hgb 28.5 pg (27.0-31.0); Mean Corpuscular Volume 92.8 fL (81.0-99.0); Mean Platelet Volume 10.5 fL (7.4-10.4); Nucleated Red Blood Cells % 0 %; Platelet Count 321 10^3/uL (130-400); Red Blood Cell Count 4.46 10^6/uL (4.20-5.40); Red Cell Dist. Width 14.7 % (11.5-14.5); White Blood Cell Count 10.7 10^3/uL (4.8-10.8)
== END ==
LOC: OLABPV 09:53
PROVIDERS: ATTENDING PHYSICIAN Physician Assistant Surgical
DX: T84.84XA Pain due to internal orthopedic prosthetic devices, implants and grafts, initial encounter (principal); Z01.812 Encounter for preprocedural laboratory examination
CPT/HCPCS: 36415; 85025

== ENCOUNTER → 2025-01-16 10:21 | Outpatient (REF) | payer MEDICARE, SELFPAY ==
[2025-01-16 11:25] LABS: Blood Urea Nitrogen 22 mg/dl (7-17); Calcium 9.4 mg/dl (8.4-10.2); Carbon Dioxide 26 mmol/L (22-30); Chloride 104 mmol/L (98-107); Glucose 118 mg/dl (70-99); Potassium 3.8 mmol/L (3.5-5.1); Sodium 138 mmol/L (135-145); eGFR > 60.00
== END ==
LOC: OLABPV 10:21
PROVIDERS: ATTENDING PHYSICIAN Internal Medicine Cardiovascular Disease
DX: I47.10 Supraventricular tachycardia, unspecified (principal)
CPT/HCPCS: 36415; 80048

== ENCOUNTER → 2025-01-29 13:29 | Outpatient (REF) | payer MEDICARE, SELFPAY | LOC: WDC 13:29 | PROVIDERS: ATTENDING PHYSICIAN Family Medicine | DX: Z12.31 Encounter for screening mammogram for malignant neoplasm of breast (principal) | CPT/HCPCS: 77063; 77067 ==

== ENCOUNTER → 2025-02-09 12:07 | Outpatient (REF) | payer MEDICARE, SELFPAY ==
[2025-02-09 12:46] LABS: ALT (SGPT) 15 U/L (0-35); AST (SGOT) 20 U/L (14-36); Albumin 3.5 g/dl (3.5-5.0); Alkaline Phosphatase 56 U/L (38-126); Blood Urea Nitrogen 21 mg/dl (7-17); Carbon Dioxide 30 mmol/L (22-30); Chloride 107 mmol/L (98-107); Glucose 108 mg/dl (70-99); Sodium 141 mmol/L (135-145); Total Bilirubin 0.9 mg/dl (0.2-1.3); Total Protein 5.4 g/dl (6.3-8.2); eGFR > 60.00
== END ==
LOC: OLABPV 12:07
PROVIDERS: ATTENDING PHYSICIAN Internal Medicine Rheumatology; FAMILY PHYSICIAN Family Medicine
DX: M81.0 Age-related osteoporosis without current pathological fracture (principal)
CPT/HCPCS: 36415; 80053

== ENCOUNTER 2025-04-08 14:51 | Inpatient (IN) | payer MEDICARE, SELFPAY ==
[2025-04-08] VITALS (37 sets, daily range): BP systolic 54–151; BP diastolic 26–102; BMI 32.2; BMI 32.1
[2025-04-08] MEDS: NSS 1700 ML IV (12:37)
--- NOTE | 2025-04-08 12:38 | ED.GENMED ---
History of Present Illness
General
Chief Complaint: Fever
Source: patient and spouse
Time Seen by Provider: 04/08/25 12:03
History of Present Illness
History of Present Illness:
79-year-old female presents to the emergency room with fever, left elbow pain, generalized weakness and malaise. Patient began feeling unwell about 3 or 4 days ago with pain in her left elbow. She was ultimately seen at an urgent care where she
was diagnosed with an infection of the bursa. Fluid was aspirated and she was started on Keflex. Patient has taken about 3 doses of the Keflex. She feels much worse today. Patient does have a history of both rheumatoid arthritis, polymyalgia
rheumatica and fibromyalgia. She is taking steroids and a biologic. Patient does endorse a mild cough as well. This has been present for the past 3 or 4 days as well.
Past History
Past History
ED Past Medical History: Fibromyalgia, GERD (Dyspepsia), HTN, Hypercholesterolemia, NIDDM (Diet controlled), Hypothyroidism, Psychiatric (Depression, ) and Other (rheumatoid arthritis, chronic nausea, intermittent diarrhea, vertigo, Diverticulitis,
TMJ, CPAP for sleep apnea, GI bleeding, UTI, Polymyalgia rheumatica, )
ED Past Surgical History: Appendectomy, Bowel resection, Cholecystectomy, Gynecological (Hysterectomy D&C, ovarian cyst), Orthopedic (Bilateral knee replacements Spinal fusion, Right foot surgery), Tonsilectomy, Urological (Bladder repair) and Other
(Surgery for small bowel obstruction)
Patient has exhibited threatening behavior?: No
PSI?: No
Social History
Tobacco: Non-smoker
Alcohol: None
Drug: None
Personal:
Living: with family
Employment: Retired
Family History
Family History: Hypertension
Phy Exam
Physical Exam
Physical Exam:
General: Awake, Alert, Oriented X3. Appears chronically ill, high BMI
Vitals: Febrile, tachycardic, mildly hypotensive
Head: Atraumatic
Eyes: Pupils equal, EOMI
Throat: Airway intact, no exudates, dry mucosa
Neck: Trachea midline
Lungs: Clear and equal b/l
Heart: Regular rate, no murmurs
Abd: Soft, Nontender, No pulsatile mass
Neuro: Nonfocal
Skin: Warm, dry, no rash
Extremities: pulses equal b/l, no edema. Left elbow has a quite inflamed left olecranon bursa. Area is extremely tender to palpation. Quite erythematous. No drainage at this point.
Sepsis
Sepsis Screening
Sepsis Assessment: Severe Sepsis
Sepsis Screening: Hypotension
Sepsis Screen
Sepsis Screen: Severe Sepsis
Date: 04/08/25
Time: 15:27
Course
Orders/Labs/Results
Orders:
Orders
04/08/25 12:24
Cardiac Monitoring- Treatment ONCE
Urinalysis Reflex To Culture Urgent
0.9% Sodium Chloride 1000 ml [Nss] 1,700 ml IV NOW STA
CR Chest - 2 Views Urgent
Comment:
Reason For Exam: fever, cough
04/08/25 12:30
Vancomycin [Vancocin] 2,000 mg 0.9% Sodium Chloride 500 ml [Nss] 500 ml IV NOW
04/08/25 12:40
Complete Blood Count/With Diff Urgent
Comprehensive Metabolic Panel Urgent
Lactic Acid Q4H
Comment: CANCEL 2nd LACTIC ACID IF 1st LACTIC ACID IS LESS THAN 2
Serum Osmolality Urgent
TSH Routine
Comment: ADD ON
Blood Culture Q30M
PATRICK Source: Blood/Venous
Specimen Description:
04/08/25 13:03
COVID-19 Antigen Urgent
Source: Nasal Swab
Cell Count (Body Fluid) [Body Fluid Cell Count] Urgent
What is the Body Fluid: bursal fluid
Date Specimen was Collected: 04/08/25
Time Specimen was Collected: 12:58
Comment: left olecranon
Wound Culture [Wound/Abscess/Other Culture] Urgent
PATRICK Source: Bursa
Specimen Description:
Date Specimen was Collected: 04/08/25
Time Specimen was Collected: 12:59
Comment: left olecranon bursa
04/08/25 13:30
Blood Culture Q30M
PATRICK Source: Blood/Venous
Specimen Description:
04/08/25 14:35
Admit/Transfer Patient As Directed
Co-Sign Provider:
Level of Care: Inpatient admission
Assign to:: IMU- Intermediate Care
Physician / Group: Salud
Diagnosis: Septic shock, left elbow bursitis
Reason for Hospitalization: IV antibiotics, left elbow bursectomy
Expected length of stay greater than two midnights?: Yes
ELOS- Estimated Length of Stay in days: 3
I certify the patient meets the requirements for IP care: Yes
04/08/25 14:36
PRN Pain Medication Management As Directed
May give lesser potent ordered pain med per pt: Yes
preference::
Protocol:: Medication orders for pain may be administered in a
manner that supports deferring to patient preference
when the pt is:
- Requesting an ordered lesser potent pain medication.
Least to most potent pain medications are defined
as: acetaminophen < NSAID < tramadol < opioids
(morphine, oxycodone, hydromorphone).
- Requesting a lesser dose of the same medication IF
ORDERED.
- Requesting a less intrusive route of administration
if both routes are prescribed by the provider (PO <
IV).
04/08/25 14:37
Code Status As Directed
Resuscitation Status: Full Code
04/08/25 14:41
Hydrocortisone Sod Succinate [Solu-Cortef] 50 mg IV NOW STA
04/08/25 14:44
Add On- LAB Routine
Tests Added?: TSH, serum osmolarity
04/08/25 16:30
Lactic Acid Q4H
Comment: CANCEL 2nd LACTIC ACID IF 1st LACTIC ACID IS LESS THAN 2
Abnormal Lab Results
04/08/25
12:40
WBC 18.8 H 10^3/uL
(4.8-10.8)
MCHC 32.4 L g/dL
(33.0-37.0)
Abs Immat Gran (auto) 0.1 H 10^3/uL
(0-0.05)
Absolute Neuts (auto) 14.5 H 10^3/uL
(1.4-6.5)
Absolute Monos (auto) 2.2 H 10^3/uL
(0.1-0.6)
Immature Gran % 0.6 H %
(0-0.5)
Neutrophils % 77.3 H %
(42.2-75.2)
Lymphocytes % 9.2 L %
(20.5-51.1)
Monocytes % 11.9 H %
(1.7-9.3)
Sodium 127 L mmol/L
(135-145)
Creatinine 0.5 L mg/dL
(0.6-1.0)
Glucose 144 H mg/dl
(70-99)
Total Bilirubin 1.5 H mg/dl
(0.2-1.3)
Total Protein 5.4 L g/dl
(6.3-8.2)
Albumin 3.4 L g/dl
(3.5-5.0)
04/08/25 12:40
04/08/25 12:40
Vital Signs
Initial and Last Documented VS:
Initial Vital Signs
Temp Pulse Resp BP Pulse Ox
100.3 F 94 16 90/50 92
04/08/25 11:25 04/08/25 11:25 04/08/25 11:25 04/08/25 11:25 04/08/25 11:25
Last Documented Vital Signs
Temp Pulse Resp BP Pulse Ox
100.3 F 98 26 125/63 94
04/08/25 11:25 04/08/25 15:15 04/08/25 15:15 04/08/25 15:00 04/08/25 15:15
Procedures
Incision/Drainage/Joint Aspiration
Left Elbow:
Anethesia: 1% Lidocaine with Epi
Preparation: cleaned with alcohol wipe
Type of procedure: aspiration
Nature of site: other (left olecranon bursa)
Loculations broken up: No
How much fluid was obtained?: number in mls (12)
Fluid description: cloudy
MDM/Problems Addressed
Differential Diagnosis Includes:
Infected olecranon bursa, left arm cellulitis, sepsis/bacteremia
MDM/Problems Addressed:
Patient had recent diagnosis of left elbow bursitis. She developed significant pain and redness in the area. Today the patient was feeling febrile, was too weak to get out of bed. Patient found to be febrile on arrival and have slightly low blood
pressure. She responded to IV fluid bolus and her blood pressure normalized. Labs show a significantly elevated white count of 18.8 with a left shift. She is mildly hyponatremic with a sodium of 127. Lactate was 2.0.A cell count was ordered on
the fluid obtained from the bursa however the lab was unable to perform a cell count because of the viscosity of the fluid. I did discuss the patient's presentation with Dr. Browne is on-call for orthopedics. Given she has responded to IV fluids
and feels somewhat better after aspiration of 12 cc of fluid from the bursa he feels that she would be better served for further resuscitation and IV antibiotics on board. He scheduled her for debridement tomorrow if necessary the this can be
rescheduled depending upon her clinical course.
Chronic conditions affecting care: HTN and Immunosuppressed
Acute Exacerbation and/or Progression of Chronic Illness: Immunosuppressed
*Radiology
Radiology exam reviewed: radiology read reviewed
*Pulse Oximetry
SaO2: 92
Oxygen Mode of Delivery: Room air
Patient hypoxic: yes
*Runner Worker Interpretation
Rate: tachycardiac
Heart Rate: 115
Rhythm: sinus tachycardia
*Critical Care Note
Total Time (30-74mins, 75-104mins- exclusive of procedures): 35 min
comment:
Critical care statement: A total of 35 minutes of critical care time was provided for this patient. This includes management of unstable vital signs, evaluation of the patient at bedside, reviewing the patient's pertinent medical records, discussion
with consultants, review of old EKGs and review of pertinent medical records. This time with separate from time utilized to perform the aforementioned documented procedures
Patient Management
Social determinants of health affecting care: Strong social support
ED Attending Note
-
Portions of this chart may have been created with voice recognition software.� Occasional wrong word or��sound alike� substitutions may have occurred due to the inherent limitations of voice recognition software.
Discharge Plan
Departure
Patient Disposition: Admit
Date of Disposition: 04/08/25
Time of Disposition: 14:09
Presentation/result/management discussed w/ accepting MD/DO: Hospitalist
Condition: Fair
Discharge Problem:
Septic olecranon bursitis of left elbow, Cellulitis of arm, left, Sepsis
Interventions
Interventions:
*Risk Screen - Suicide Last Done: 04/08/25 11:42
*General Assessment Last Done: 04/08/25 11:42
*Neglect/Abuse Screening Last Done: 04/08/25 11:42
*ED- Fall Risk Assessment Last Done: 04/08/25 11:42
*ED COVID-19 Vaccine History Last Done: 04/08/25 11:42
ED- Neurological Assessment Last Done: 04/08/25 11:42
ED-Skin Assessment Last Done: 04/08/25 11:42
[2025-04-08 12:52] LABS: Hematocrit 39.2 % (37.0-47.0); Hemoglobin 12.7 g/dL (12.0-16.0); Mean Corp Hgb Conc. 32.4 g/dL (33.0-37.0); Mean Corpuscular Volume 90.3 fL (81.0-99.0); Nucleated Red Blood Cells % 0 %; Platelet Count 271 10^3/uL (130-400); Red Cell Dist. Width 13.6 % (11.5-14.5)
[2025-04-08 13:22] LABS: ALT (SGPT) 17 U/L (0-35); AST (SGOT) 28 U/L (14-36); Albumin 3.4 g/dl (3.5-5.0); Alkaline Phosphatase 73 U/L (38-126); Blood Urea Nitrogen 14 mg/dl (7-17); Calcium 8.6 mg/dl (8.4-10.2); Carbon Dioxide 23 mmol/L (22-30); Chloride 98 mmol/L (98-107); Estimated Creatinine Clearance 82 ml/min; Glucose 144 mg/dl (70-99); Potassium 3.9 mmol/L (3.5-5.1); Sodium 127 mmol/L (135-145); Total Protein 5.4 g/dl (6.3-8.2); eGFR > 60.00
[2025-04-08 13:31] LABS: COVID-19 Antigen Negative (Negative)
[2025-04-08] MEDS: VANCOCIN 540 MG IV (14:11)
[2025-04-08 14:44] LABS: Body Fluid Second Tech CW
--- NOTE | 2025-04-08 14:46 | HPS.HSE ---
Family Physician
-
Family Physician: Lyubov Liu
Chief Complaint
-
Left elbow pain, swelling, confusion
History of Present Illness
79-year-old female with underlying immunosuppression, developed left elbow pain and swelling 3 to 4 days ago. Went to [facility] yesterday and received a prescription for cephalexin. Also had the left elbow incised and drained &
culture sent.
Came into the emergency room today with ongoing pain and swelling as well as confusion.
Patient states the left elbow started off as a blister that gradually got bigger and more painful. Denies any elbow trauma. Denies similar symptoms in the past.
She is a somewhat limited historian due to fogginess and confusion that she admits to having since she became ill.
Medical History
Past Medical History
Past Medical History: Reports Other
Additional Past Medical History:
Rheumatoid arthritis
Polymyalgia rheumatica
Fibromyalgia
Hypothyroidism
GERD
Essential hypertension
DM 2
ARIANA
Chronic heart failure with preserved EF
Supraventricular tachycardia
IBS
Diverticulosis
Spinal stenosis
Hyperlipidemia
SBO
Past Surgical History: Reports Cholecystectomy, Orthopedic and Tonsilectomy
Social History
Tobacco: Non-smoker
Alcohol: None
Drug: None
Personal:
Living: With Family
Family History
Family History: Not pertinent
Allergies / Home Medications
Allergies reflects when Allergies were last updated in [facility].
Home Medications with original date entered in [facility]
Allergy/Medication List:
Allergies
Allergy/AdvReac Type Severity Reaction Status Date / Time
bee venom protein (honey bee) Allergy Shortness Verified 09/02/24 17:25
of Breath
ciprofloxacin (From Cipro) Allergy Unknown Verified 09/02/24 17:25
glycine (From Gamunex) Allergy Hives Verified 09/02/24 17:25
immune globulin,alpha (IgA) Allergy Hives Verified 09/02/24 17:25
greater than 50 mcg/mL (From
Gamunex)
immune globulin,gamma (IgG) Allergy Hives Verified 09/02/24 17:25
human (From Gamunex)
lisinopril Allergy cough Verified 09/02/24 17:25
meperidine (From Demerol) Allergy Nausea Verified 09/02/24 17:25
nitrofurantoin (From Allergy SEE BELOW Verified 09/02/24 17:25
Macrobid)
prochlorperazine edisylate Allergy agitation Verified 09/02/24 17:25
(From Compazine)
Sulfa (Sulfonamide Allergy Hives Verified 09/02/24 17:25
Antibiotics)
Home Medications
simvastatin 10 mg tablet (Zocor) 10 mg PO QPM High cholesterol 02/13/08
levothyroxine 25 mcg tablet 25 mcg PO DAILY Thyroid 05/30/20
potassium chloride 10 mEq tablet,extended release(part/cryst) 10 meq PO TID Electrolyte Repletion ##0 05/30/20
metoprolol tartrate 25 mg tablet 25 mg PO BID #60 tabs 11/16/22
pantoprazole 40 mg tablet,delayed release (Protonix) 40 mg PO BID Gastrointestinal Issue 12/30/22
calcium citrate 250 mg PO DAILY Supplement 06/24/23
latanoprost 0.005 % eye drops 1 drp BOTH EYES DAILY Eye Condition 06/24/23
magnesium oxide 400 mg PO QPM Electrolyte Repletion 06/24/23
losartan 50 mg tablet 50 mg PO DAILY Blood pressure #0 tabs 09/04/24
methenamine hippurate 1 gram tablet 1 g PO BID Urinary issue #30 tabs 09/04/24
acetaminophen 650 mg tablet,extended release 650 mg PO Q8HPRN PRN mild pain 04/08/25
cholecalciferol (vitamin D3) 25 mcg (1,000 unit) tablet 25 mcg PO DAILY 04/08/25
estradiol 0.01% (0.1 mg/gram) vaginal cream 1 appful vaginal MOTH 04/08/25
guaifenesin 600 mg tablet, extended release 12 hr 600 mg PO DAILY 04/08/25
methylprednisolone 8 mg tablet 8 mg PO DAILY 04/08/25
sitagliptin phosphate 100 mg tablet (Januvia) 100 mg PO DAILY 04/08/25
varenicline tartrate 0.03 mg/spray metered nasal spray (Tyrvaya) 1 spray intranasal BID 04/08/25
Review of Systems
-
History Source: Patient
A 12 point ROS was completed and negative except as noted: Yes
Physical Exam
Vital Signs
Vital Signs
Temp Pulse Resp BP Pulse Ox
100.3 F 98 24 90/51 92
04/08/25 11:25 04/08/25 11:45 04/08/25 11:45 04/08/25 11:30 04/08/25 12:40
Physical Exam
General: Well Developed, Well Nourished, Appears in Distress and Pain
HEENT: NormoCephalic, Anicteric and Moist mucous membranes
Respiratory: Clear
Cardiac: S1/S2, Regular Rhythm and Tachycardia
Breast: Deferred by me
GI: Soft, Non Tender and Non Distended
Genito-urinary: Deferred by me
Musculoskeletal: Edema, Left Lower Extremity, Edema, Right Lower Extremity and Other (Diffuse left elbow fluctuance, erythema and warmth, edema)
Skin: Warm and Dry
Neuro: Awake, Alert and Oriented
Hematologic/Lymphatic: No Lymphadenopathy
Psych: Confused
Laboratory Results
-
04/08/25 12:40
04/08/25 12:40
Laboratory Results
Lactic Acid 2.0 mmol/L (0.7-2.0) 04/08/25 12:40
Total Bilirubin 1.5 mg/dl (0.2-1.3) H 04/08/25 12:40
AST 28 U/L (14-36) 04/08/25 12:40
ALT 17 U/L (0-35) 04/08/25 12:40
Alkaline Phosphatase 73 U/L (38-126) 04/08/25 12:40
Impression/Plan
-
Acute metabolic encephalopathy -presentation with confusion due to sepsis and shock. Anticipate improvement with clinical improvement.
Septic shock -due to left olecranon bursitis. Presentation with hypotension, tachycardia, leukocytosis and fever. Admit to IMU, continue IV fluid support, continue IV vancomycin. Keep n.p.o., awaiting surgical drainage hopefully today. Discussed
with orthopedic service.
Consult infectious disease.
Blood cultures sent in the emergency room.
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 Will use stress dose steroids given presentation with shock. Family states that steroids are to treat her multiple conditions including RA and PMR.
Hyponatremia -suspect hypovolemic. Check TSH, serum osmolarity, urine osmolarity. Continue normal saline IV fluids. Recheck labs in the morning.
Chronic heart failure preserved EF -stable.
Hypothyroidism -continue levothyroxine. Check TSH.
DM2 without hyperglycemia -glucose 144 today. Check hemoglobin A1c, use low resistance NovoLog scale. Hold oral agents.
Essential hypertension -hold meds for shock, hypotension.
Hyperlipidemia -on simvastatin.
Rheumatoid arthritis
PMR
Fibromyalgia
ARIANA -family states she is not using CPAP at home, unclear reasons.
GERD
Obesity due to excess calories
Full code
I updated patient's daughter Jeannie on the phone, all questions answered. She is about to board a plane so she asked us to update her sister Kelley Ellis on the phone with any further developments. Phone number is [phone].
--- NOTE | 2025-04-08 14:52 | CON.ID ---
Consultation
-
Date/Time Consultation Requested: April 08, 2025 144
Date/Time Consultation Performed: April 08, 2025 1450
Requesting Provider: Dr. Anselmo Brannon
Performing Provider: Dr. Vivienne Hassan
Reason for Consultation: Olecranon bursitis
Chief Complaint / Past History
Chief Complaint
Left elbow swelling pain and redness
History of Present Illness
79 year old female with history of DM, RA/PMR on steroid who noted left elbow swelling about 2 to 3 days ago. There was erythema and condition worsened. She went to [facility] urgent [facility], bursa aspirated then she was prescribed cephalexin.
However her elbow continued to progress and started draining purulent fluid. She then decided come to the ER today. Temperature 100.3. White count 18.8. Blood pressure in the 90 systolic, 50s diastolic. She is currently on vancomycin. Patient
denies trauma to her elbow. She complains of fever and chills.
Past History
Additional Past Medical History:
IDDM
Rheumatoid arthritis
Polymyalgia rheumatica, on steroid
Fibromyalgia
GERD
HTN
Dyslipidemia
Hypothyroidism
Depression
Diverticulitis
TMJ
ARIANA
Additional Past Surgical History:
Appendectomy
Bowel resection
Cholecystectomy
KESHA
Bilateral knee replacement
Spinal fusion
Bladder repair
Allergy History:
bee venom protein (honey bee) Allergy (Verified 09/02/24 17:25)
Shortness of Breath
ciprofloxacin (From Cipro) Allergy (Verified 09/02/24 17:25)
Unknown
glycine (From Gamunex) Allergy (Verified 09/02/24 17:25)
Hives
immune globulin,alpha (IgA) greater than 50 mcg/mL (From Gamunex) Allergy (Verified 09/02/24 17:25)
Hives
immune globulin,gamma (IgG) human (From Gamunex) Allergy (Verified 09/02/24 17:25)
Hives
lisinopril Allergy (Verified 09/02/24 17:25)
cough
meperidine (From Demerol) Allergy (Verified 09/02/24 17:25)
Nausea
nitrofurantoin (From Macrobid) Allergy (Verified 09/02/24 17:25)
SEE BELOW
prochlorperazine edisylate (From Compazine) Allergy (Verified 09/02/24 17:25)
agitation
Sulfa (Sulfonamide Antibiotics) Allergy (Verified 09/02/24 17:25)
Hives
Medications Reviewed: Yes
Current Antibiotics:
Vancomycin
Social History
Tobacco: Non-Smoker
Alcohol: None
Drug: None
Personal:
Living: With Family
Employment: Retired
Family History
Family History: Not Pertinent
Review of Systems
Review of Systems
General: Fever, Chills and Change in Appetite
HEENT: Negative Sinus Problems or Headache
Cardiovascular: Negative Chest Pain or Dyspnea
Respiratory: Negative Dyspnea or Cough
Gasteroenterology: Negative Nausea, Vomiting or Diarrhea
Genital / Urological: Negative Dysuria
Endocrine: Weakness
Neurological: Negative Dizziness
All systems: All other systems were reviewed and were negative
Vital Signs
Temp Pulse Resp BP Pulse Ox
100.3 F 98 24 90/51 92
04/08/25 11:25 04/08/25 11:45 04/08/25 11:45 04/08/25 11:30 04/08/25 12:40
Physical Exam
Physical Exam
Constitutional: Non-toxic
Head: Other (No frontal or max or sinus tenderness)
Eyes: No Conjunctival Hemorrhage and Sclera Anicteric
Cardiovascular: S1/S2 and Other (Tachycardic)
Pulmonary: Clear
Gastrointestinal: Soft, Non Tender, Non Distended and Normal Bowel Sounds
Genito-Urinary: Negative CVA Tenderness
Extremities: Negative Edema
Musculoskeletal: Other (Left olecranon with right erythema with a central pustular wound, positive edema. Erythema extends up the arm and proximal forearm. Range of motion intact.)
Neurological: AO x 3
Lab / Diagnostic Study Results
04/08/25 12:40
04/08/25 12:40
Abs Immat Gran (auto) 0.1 10^3/uL (0-0.05) H 04/08/25 12:40
Absolute Neuts (auto) 14.5 10^3/uL (1.4-6.5) H 04/08/25 12:40
Absolute Lymphs (auto) 1.7 10^3/uL (1.2-3.4) 04/08/25 12:40
Absolute Monos (auto) 2.2 10^3/uL (0.1-0.6) H 04/08/25 12:40
Absolute Basos (auto) 0.1 10^3/uL (0-0.2) 04/08/25 12:40
Immature Gran % 0.6 % (0-0.5) H 04/08/25 12:40
Neutrophils % 77.3 % (42.2-75.2) H 04/08/25 12:40
Lymphocytes % 9.2 % (20.5-51.1) L 04/08/25 12:40
Monocytes % 11.9 % (1.7-9.3) H 04/08/25 12:40
Eosinophils % 0.5 % (0-6) 04/08/25 12:40
Basophils % 0.5 % (0-2) 04/08/25 12:40
Lactic Acid 2.0 mmol/L (0.7-2.0) 04/08/25 12:40
Microbiology Results
Micro:
04/08/25 13:03 Wound Culture - Pending
Bursa Gram Stain - Preliminary
04/08/25 12:40 Blood Culture - Pending
Blood/Venous
04/08/25 13:30 Blood Culture - Pending
Blood/Venous
04/08/25 CXR: Small patchy opacity in the left lung base, mild pneumonia versus atelectasis.
Assessment / Plan
# Acute left olecranon bursitis
# Leukocytosis
# Low blood pressure
# RA, PMR on chronic steroid
- Olecranon fluid too viscous for WBC count, 94% PMN
Gram stain: GPC, cx pending
- To OR for I+D. Please send deep cx.
- Suspect MSSA vs Strep. Start cefazolin.
- Can continue Vancomycin for now. If no MRSA, dc Vanco.
- Trend WBC/temps.
--- NOTE | 2025-04-08 15:51 | CM ---
CM reviewed chart and met with pt bedside in ED. Lives in a 1 story cottage at [place] [place] with her . No STEVE.
Independent in ADLs, personal care and ambulation at baseline. Uses [facility].
Hx [facility]/no hx SNF
PCP: Lyubov Liu
Pharmacy: [facility] in [place]
CM will continue to follow for discharge planning needs.
[2025-04-08 16:12] LABS: TSH 3.07 uIU/ml (0.47-4.68)
--- NOTE | 2025-04-08 16:40 | CON.ORTHO ---
Consultation
-
Date/Time Consultation Requested: [id number] 12:37
Date/Time Consultation Performed: [id number] 16:00
Requesting Provider: Nori
Performing Provider: Pilo Ruiz MD
Reason for Consultation: left elbow infection, sepsis
Consultation - Orthopedics
History
Patient is a 79 year old right hand dominant female complaining of several days of left elbow swelling, worsening over the pat two days. She noted redness, swelling, and pain increasing in her left arm when she presented to urgent care. Her left
olecranon bursa was aspirated, she was told she had cellulitis, and discharged home on Keflex. The next morning she was dizzy, confused, had subjective fevers and chills, and noted incresed swelling and drainage from her left olecranon bursa. She
was brought to the [facility] ED where she was found to be hypotensive and septic. A repeat aspiration was performed, sent for culture, and started on empiric ancef and vancomycin. She states her elbow feels improved but her subjective
decreased mental function persists. Orthopaedics was consulted for possible surgical management of her left olecranon septic bursitis. She has polymyalgia rheumatica and rheumatic arthritis, and takes a biologic and oral steroids, which may decrease
her immune function.
Past Medical History
Past Medical History: Reports Other
Additional Past Medical History:
Rheumatoid arthritis
Polymyalgia rheumatica
Fibromyalgia
Hypothyroidism
GERD
Essential hypertension
DM 2
ARIANA
Chronic heart failure with preserved EF
Supraventricular tachycardia
IBS
Diverticulosis
Spinal stenosis
Hyperlipidemia
SBO
Allergies / Home Medications
Allergy/AdvReac Type Severity Reaction Status Date / Time
bee venom protein (honey bee) Allergy Shortness Verified 09/02/24 17:25
of Breath
ciprofloxacin (From Cipro) Allergy Unknown Verified 09/02/24 17:25
glycine (From Gamunex) Allergy Hives Verified 09/02/24 17:25
immune globulin,alpha (IgA) Allergy Hives Verified 09/02/24 17:25
greater than 50 mcg/mL (From
Gamunex)
immune globulin,gamma (IgG) Allergy Hives Verified 09/02/24 17:25
human (From Gamunex)
lisinopril Allergy cough Verified 09/02/24 17:25
meperidine (From Demerol) Allergy Nausea Verified 09/02/24 17:25
nitrofurantoin (From Allergy SEE BELOW Verified 09/02/24 17:25
Macrobid)
prochlorperazine edisylate Allergy agitation Verified 09/02/24 17:25
(From Compazine)
Sulfa (Sulfonamide Allergy Hives Verified 09/02/24 17:25
Antibiotics)
�Medication �Instructions �Recorded
simvastatin 10 mg tablet (Zocor) 10 mg PO QPM High cholesterol 02/13/08
levothyroxine 25 mcg tablet 25 mcg PO DAILY Thyroid 05/30/20
potassium chloride 10 mEq 10 meq PO TID Electrolyte 05/30/20
tablet,extended release(part/cryst) Repletion ##0
metoprolol tartrate 25 mg tablet 25 mg PO BID #60 tabs 11/16/22
pantoprazole 40 mg tablet,delayed 40 mg PO BID Gastrointestinal Issue 12/30/22
release (Protonix)
calcium citrate 250 mg PO DAILY Supplement 06/24/23
latanoprost 0.005 % eye drops 1 drp BOTH EYES DAILY Eye Condition 06/24/23
magnesium oxide 400 mg PO QPM Electrolyte Repletion 06/24/23
losartan 50 mg tablet 50 mg PO DAILY Blood pressure #0 09/04/24
tabs
methenamine hippurate 1 gram tablet 1 g PO BID Urinary issue #30 tabs 09/04/24
acetaminophen 650 mg 650 mg PO Q8HPRN PRN mild pain 04/08/25
tablet,extended release
cholecalciferol (vitamin D3) 25 25 mcg PO DAILY 04/08/25
mcg (1,000 unit) tablet
estradiol 0.01% (0.1 mg/gram) 1 appful vaginal MOTH 04/08/25
vaginal cream
guaifenesin 600 mg tablet, 600 mg PO DAILY 04/08/25
extended release 12 hr
methylprednisolone 8 mg tablet 8 mg PO DAILY 04/08/25
sitagliptin phosphate 100 mg 100 mg PO DAILY 04/08/25
tablet (Januvia)
varenicline tartrate 0.03 mg/spray 1 spray intranasal BID 04/08/25
metered nasal spray (Tyrvaya)
Vital Signs / Lab Results
Temp Pulse Resp BP Pulse Ox
100.3 F 97 21 125/63 95
04/08/25 11:25 04/08/25 16:15 04/08/25 16:15 04/08/25 15:00 04/08/25 16:00
04/08/25 12:40
04/08/25 12:40
Assessment / Plan
Patient has left septic olecranon bursitis. Due to her diagnosed sepsis, worsening of her condition after a therapeutic aspiration and treatment with antibiotics, combined with her relative immunocompromised state due to her underlying medical
conditions and medications, she would likely benefit from irrigation and debridement in the operating room. This may help reduce the overall disease burden and remove any nidus for infection when non-viable tissue is removed from the wound. We will
obtain tissue samples to send for culture as well as culture swabs. The risks and benefits of surgery, including failure to control the infection, pain, damage to nearby structures, and even were discussed with the patient and her daughter.
The patient understand these risks and wishes to proceed with surgery. She has been NPO since the prior evening and we will proceed with left olecranon bursa irrigation and debridement today.
[2025-04-08 18:20] LABS: Glucose - Point of Care 123 mg/dl (70-99)
--- NOTE | 2025-04-08 18:20 | W.IMMPOSTOP ---
Surgical Immed Post Op Note
-
Primary Surgeon: Pilo Ruiz MD
Assisting Surgeon:
Pre-op Diagnosis: left olecranon septic bursitis
Post-op Diagnosis: left olecranon septic bursitis
Procedure Performed: irrigation and debridement left olecranon bursa
Anesthesia Type: sedation with local
Specimen / Cultures: tissue sample x1 for culture; aerobic and anaerobic swabs
Estimated Blood Loss: 5mL
Complications: none apparent
Operative Findings: serosanguinous and seropurulent fluid in bursa
Tourniquet time: 31 minutes at 250mm Hg
Operative dictation #: [id number]
[2025-04-08] MEDS: NSS 500 IV (18:28)
[2025-04-08] MEDS: SOLU-CORTEF 50 MG IV (18:33)
[2025-04-08] MEDS: NEO-SYNEPHRINE 250 IV (18:38)
--- NOTE | 2025-04-08 19:03 | W.PN.UPDATE ---
Update Note
Progress Note Update
Called by PACU that pt was hypotensive post-op, requiring YEN. Orders changed to ICU. I spoke to the RN in PACU, pt currently stable on Yen. Night ICU AP given sign out over the phone and she will evaluated whether pt needs more volume upon arrival
to ICU. Note, PACU just ordered 500cc bolus.
--- NOTE | 2025-04-08 19:43 | PHA.VAN.IN ---
Assessment
- Assessment
Renal Function: Appears similar to baseline
Maximum Temperature: 100.3
Minimum Temperature: 97.9
Concomitant Antimicrobials: cefazolin
AUC Dosing Plan
- Dosing Variables
Dosing Weight (kg): 87.8
Dosing CrCl (ml/min): 82
Vd coefficient (L/kg): 0.7
- Empiric Dosing
Initial / Loading Dose: 2000 mg
Maintenance Regimen: vanc 1000mg q12
Estimated AUC (mcg*h/mL): 465
Estimated Peak (mcg*h/mL): 28
Estimated Trough (mcg/ml): 12.6
Estimated Half Life (H): 9.6
- Monitoring
No levels ordered at this time: consider in the upcoming days
Pharmacokinetics Vancomycin I
- -
Patient Age: 79
Patient Sex: Female
Vancomycin Day #: 1
Indication: Skin And Soft Tissue
Requesting Provider: Dr Brannon, Dr Hassan
Pertinent Antimicrobial Allergies:
Sulfa (Sulfonamide Antibiotics) Allergy (Verified 09/02/24 17:25) Hives
ciprofloxacin (From Cipro) Allergy (Verified 09/02/24 17:25) Unknown
nitrofurantoin (From Macrobid) Allergy (Verified 09/02/24 17:25) HAS FIBROMYALGIA AND MEDICATION HX OF TENDON TEARING
Height / Weight:
Height 5 ft 5 in
Actual Weight 87.8 kg
Pertinent Past Medical History: RA/PMR on steroids, L olecranon septic bursitis I/D in OR 04/08
- Vital Signs / Lab Results
Temp Pulse Resp BP Pulse Ox
98.5 F 82 26 131/102 98
04/08/25 19:15 04/08/25 19:20 04/08/25 19:20 04/08/25 19:20 04/08/25 19:20
Lab Results - Hematology
04/08/25
12:40
WBC 18.8 H
Lab Results - Chemistry
04/08/25
12:40
BUN 14
Creatinine 0.5 L
Estimated Creat Clear 82
Albumin 3.4 L
04/08/25 04/08/25
12:40 19:11
Lactic Acid 2.0 1.3
Microbiology Results
04/08/25 13:03 Gram Stain - Preliminary
Bursa
[2025-04-08] MEDS: NOVOLOG FLEXPEN-LOW RESISTANCE SC (21:07)
[2025-04-08] MEDS: PROTONIX 40 MG PO (21:14)
[2025-04-08] MEDS: COLACE 100 MG PO (21:14)
[2025-04-08] MEDS: ANCEF 10 IV (21:24)
[2025-04-08] MEDS: NSS 1000 IV (21:24)
[2025-04-08 21:51] LABS: Hematocrit 37.9 % (37.0-47.0); Hemoglobin 12.0 g/dL (12.0-16.0)
[2025-04-08 22:12] LABS: Blood Urea Nitrogen 11 mg/dl (7-17); Calcium 7.8 mg/dl (8.4-10.2); Carbon Dioxide 23 mmol/L (22-30); Chloride 106 mmol/L (98-107); Estimated Creatinine Clearance 82 ml/min; Glucose 136 mg/dl (70-99); Potassium 3.6 mmol/L (3.5-5.1); Sodium 133 mmol/L (135-145); eGFR > 60.00
[2025-04-08 22:14] LABS: Glucose - Point of Care 176 mg/dl (70-99)
[2025-04-08 22:15] LABS: Glucose - Point of Care 132 mg/dl (70-99)
[2025-04-09] VITALS (30 sets, daily range): BP systolic 102–172; BP diastolic 50–100; PULSE 89; O2SAT 95; BMI 32.4
[2025-04-09] MEDS: SOLU-CORTEF 50 MG IV ×3 (00:41→20:41)
[2025-04-09] MEDS: NSS 500 IV (00:42)
--- NOTE | 2025-04-09 03:00 | PTCARENOTE ---
Isaías gtt infusion turned off at 0300.
[2025-04-09] MEDS: NSS 1000 IV (04:31)
[2025-04-09] MEDS: ANCEF 10 IV (04:31)
[2025-04-09 05:00] LABS: Hematocrit 38.1 % (37.0-47.0); Hemoglobin 11.8 g/dL (12.0-16.0); Mean Corp Hgb Conc. 31.0 g/dL (33.0-37.0); Mean Corpuscular Volume 93.4 fL (81.0-99.0); Nucleated Red Blood Cells % 0 %; Platelet Count 234 10^3/uL (130-400); Red Cell Dist. Width 13.4 % (11.5-14.5); Urine Character Clear (Clear)
[2025-04-09] MEDS: VANCOCIN 200 IV ×2 (05:08→17:16)
[2025-04-09] MEDS: SYNTHROID 25 MCG PO (05:08)
[2025-04-09 05:14] LABS: INR 1.19; PT 15.4 Sec (11.4-14.6)
[2025-04-09 05:15] LABS: APTT 30.4 Sec (23.4-35.0)
[2025-04-09 05:29] LABS: ALT (SGPT) 16 U/L (0-35); AST (SGOT) 21 U/L (14-36); Albumin 2.8 g/dl (3.5-5.0); Alkaline Phosphatase 66 U/L (38-126); Blood Urea Nitrogen 9 mg/dl (7-17); Calcium 7.4 mg/dl (8.4-10.2); Carbon Dioxide 21 mmol/L (22-30); Chloride 109 mmol/L (98-107); Estimated Creatinine Clearance 82 ml/min; Glucose 136 mg/dl (70-99); Magnesium 2.1 mg/dl (1.6-2.3); Potassium 3.6 mmol/L (3.5-5.1); Sodium 136 mmol/L (135-145); Total Protein 4.7 g/dl (6.3-8.2); eGFR > 60.00
[2025-04-09 05:56] LABS: Urine Squamous Cell >30 /LPF (Few)
[2025-04-09] MEDS: KCL 20 MEQ PO ×2 (06:14→14:03)
--- NOTE | 2025-04-09 07:25 | CON.INTV ---
Consultation
Consultation Request
Date/Time Consultation Requested: April 09, 2025
Date/Time Consultation Performed: April 09, 2025
Medical History
-
Chief Complaint: Left elbow swelling
History of Present Illness:
79 yo F PMH of rheumatoid arthritis, polymyalgia rheumatica on steroids, fibromyalgia, HFpEF, diabetes mellitus who had left elbow pain/swelling, fever, and weakness for 2-3 days duration. On , she went to [place] urgent care, where,
fluid was aspirated and she was prescribed cephalexin for presumed cellulitis/bursitis of left elbow. On 04/08/2025, however, she came to [place] ED due to worsening pain, weakness, and confusion.
In the ED, initial VS n/f T 100.3 and BP 90/50, HR in the 100s with concern for septic bursitis and shock. Aspiration was repeated, and vancomycin and cefazolin were started. She received a fluid bolus, and BP improved to 125/63. Initial labs n/f
WBC to 18.8, lactate of 2.0.
She was then taken to the OR for incision and drainage. Post-op, she was found to be hypotensive to 70s/60s, and phenylephrine was started. Hence, she was admitted to the ICU for further management.
Overnight, she has not required phenylephrine since 3am, and BP ranges in 120s/60s.
This morning, she reports she feels significantly better. Endorses some pain near left elbow, but denies dyspnea or chest pain. Orthopedic team was in room, and removed the splint to facilitate movement.
Past Medical History
Past Medical History: Reports Other
Additional Past Medical History:
Rheumatoid arthritis
Polymyalgia rheumatica
Fibromyalgia
Hypothyroidism
GERD
Essential hypertension
DM 2
ARIANA
Chronic heart failure with preserved EF
Supraventricular tachycardia
IBS
Diverticulosis
Spinal stenosis
Hyperlipidemia
SBO
Past Surgical History: Cholecystectomy, Orthopedic and Tonsilectomy
Social History
Tobacco: Non-smoker
Alcohol: None
Drug: None
Personal:
Living: With Family
Allergies / Home Medications
Allergies
Allergy/AdvReac Type Severity Reaction Status Date / Time
bee venom protein (honey bee) Allergy Shortness Verified 09/02/24 17:25
of Breath
ciprofloxacin (From Cipro) Allergy Unknown Verified 09/02/24 17:25
glycine (From Gamunex) Allergy Hives Verified 09/02/24 17:25
immune globulin,alpha (IgA) Allergy Hives Verified 09/02/24 17:25
greater than 50 mcg/mL (From
Gamunex)
immune globulin,gamma (IgG) Allergy Hives Verified 09/02/24 17:25
human (From Gamunex)
lisinopril Allergy cough Verified 09/02/24 17:25
meperidine (From Demerol) Allergy Nausea Verified 09/02/24 17:25
nitrofurantoin (From Allergy SEE BELOW Verified 09/02/24 17:25
Macrobid)
prochlorperazine edisylate Allergy agitation Verified 09/02/24 17:25
(From Compazine)
Sulfa (Sulfonamide Allergy Hives Verified 09/02/24 17:25
Antibiotics)
Home Medications
�Medication �Instructions �Recorded �Confirmed �Last Taken �Type
simvastatin 10 mg tablet (Zocor) 10 mg PO QPM High cholesterol 02/13/08 04/08/25 04/07/25 History
levothyroxine 25 mcg tablet 25 mcg PO DAILY Thyroid 05/30/20 04/08/25 04/08/25 History
potassium chloride 10 mEq 10 meq PO TID Electrolyte 05/30/20 04/08/25 04/08/25 History
tablet,extended release(part/cryst) Repletion ##0
metoprolol tartrate 25 mg tablet 25 mg PO BID #60 tabs 11/16/22 04/08/25 04/08/25 Rx
pantoprazole 40 mg tablet,delayed 40 mg PO BID Gastrointestinal Issue 12/30/22 04/08/25 04/08/25 History
release (Protonix)
calcium citrate 250 mg PO DAILY Supplement 06/24/23 04/08/25 04/08/25 History
latanoprost 0.005 % eye drops 1 drp BOTH EYES DAILY Eye Condition 06/24/23 04/08/25 09/02/24 History
magnesium oxide 400 mg PO QPM Electrolyte Repletion 06/24/23 04/08/25 04/07/25 History
losartan 50 mg tablet 50 mg PO DAILY Blood pressure #0 09/04/24 04/08/25 04/08/25 Rx
tabs
methenamine hippurate 1 gram tablet 1 g PO BID Urinary issue #30 tabs 09/04/24 04/08/25 04/08/25 Rx
acetaminophen 650 mg 650 mg PO Q8HPRN PRN mild pain 04/08/25 04/08/25 04/07/25 History
tablet,extended release
cholecalciferol (vitamin D3) 25 25 mcg PO DAILY 04/08/25 04/08/25 04/08/25 History
mcg (1,000 unit) tablet
estradiol 0.01% (0.1 mg/gram) 1 appful vaginal MOTH 04/08/25 04/08/25 04/05/25 History
vaginal cream
guaifenesin 600 mg tablet, 600 mg PO DAILY 04/08/25 04/08/25 04/08/25 History
extended release 12 hr
methylprednisolone 8 mg tablet 8 mg PO DAILY 04/08/25 04/08/25 04/08/25 History
sitagliptin phosphate 100 mg 100 mg PO DAILY 04/08/25 04/08/25 04/08/25 History
tablet (Januvia)
varenicline tartrate 0.03 mg/spray 1 spray intranasal BID 04/08/25 04/08/25 04/08/25 History
metered nasal spray (Tyrvaya)
Review of Systems
-
History Source: Patient
Constitutional: No Symptoms
EENT: No Symptoms
Respiratory: No Symptoms
Cardiac: No Symptoms
Abdomen/GI: No Symptoms
: No Symptoms
Musculoskeletal: Joint Pain (left elbow, post-op)
Skin: No Symptoms
Neuro: Other (denies weakness)
Endocrine: No Symptoms
Hematologic/Lymphatic: No Symptoms
Vitals / Labs / Diagnostic Testing
Vital Signs
Temp Pulse Resp BP Pulse Ox
98.2 F 76 15 118/75 99
04/09/25 03:28 04/09/25 06:45 04/09/25 06:45 04/09/25 06:30 04/09/25 06:45
Lab Data
04/09/25 04:46
04/09/25 04:46
Laboratory Results
04/09/25
04:46
PT 15.4 H
INR 1.19
APTT 30.4
Labs:
WBC 15.1 down from 18.8
Hgb 11.8
Na+ 136 (127 on admission)
Cr 0.5
Ca 7.4
Blood glucose in 130s
Microbiology
04/08/25 13:03 Bursa Wound culture preliminary MRSA positive
Diagnostic Testing:
04/08/2025: Elbow X-ray
FINDINGS/IMPRESSION:
No aggressive osseous destruction to definitively confirm acute osteomyelitis. Slight irregularity of the posterior cortices of the distal humerus and olecranon process suggesting osteitis. No acute fracture or dislocation. The radiocapitellar and
ulnar-trochlear joint alignments are maintained. Soft tissue swelling about the elbow. Thinning of the soft tissues posterior to the elbow suggesting a presence of a wound.
04/09/2025: CXR
IMPRESSION:
Mild left basilar opacity without significant change, possibly representing atelectasis and/or pneumonia.
09/04/2024: Echocardiogram
CONCLUSIONS
Normal biventricular size and systolic function without regional wall motion
abnormality. Estimated LVEF 55%.
Stage II diastolic dysfunction suggestive of abnormal relaxation and increased
filling pressures.
Aortic sclerosis without stenosis.
Mild mitral stenosis. Mild/moderate mitral regurgitation.
Mild/moderate tricuspid regurgitation.
Physical Exam
-
HEENT: Normocephalic
Cardiovascular: Regular Rhythm and Other (no murmurs on my exam)
Respiratory: Clear (on my exam)
GI: Soft and Non Tender
Neurology: Awake, Alert and No Motor Deficits
Skin: Warm and Dry
General: Comfortable
Assessment
-
79 yo F PMH of rheumatoid arthritis, polymyalgia rheumatica on steroids, HFpEF, DM here for septic bursitis of left elbow, s/p incision & drainage, POD#1.
Etiology of the infection is likely due to an immunocompromised state while on chronic steroids. Orthopedics is okay with her moving/ambulating as tolerated.
Her BPs since stopping norepinephrine have been within normal limits. She occasionally has brief runs of supraventricular tachycardia (PMH of SVT), however, the episodes are < 2min and revert to NSR spontaneously. She remains hemodynamically stable
(BP in 120s/60s). Per chart review, she takes metoprolol, which is being held during the current admission. Restarting metoprolol may be considered but should be balanced against her recent episodes of hypotension and sepsis.
Nonetheless, given that the patient appears clinically improved, transferring out of ICU can be considered.
Neuro:
- mental status is significantly improved
CV:
- norepinephrine has been stopped since 03:00 AM
- Last echo in Aug 2024, EF 55%
Respiratory:
- CXR is most likely atelectasis, post-op
- start incentive spirometer
GI:
- pantoprazole
Renal:
- Cr 0.5
- Na+ 136
ID:
- MRSA +
- Continue vancomycin
- Continue cefazolin
- f/u ID recommendations
- f/u pending cultures (wound, blood, urine)
Heme:
- enoxaparin, SCDs
Endo:
- levothyroxine
- hydrocortisone
Plan summary:
- Consider transferring out of ICU
- Continue antibiotics
- Start incentive spirometer
Recommendations are not final until attending attestation
Data Reviewed
-
Radiology: Report reviewed by me
[2025-04-09 08:53] LABS: Glycohemoglobin (HgbA1c) 7.3 % (4.0-5.6)
[2025-04-09] MEDS: COLACE 100 MG PO ×2 (09:00→20:35)
[2025-04-09] MEDS: PROTONIX 40 MG PO ×2 (09:00→20:34)
[2025-04-09] MEDS: LOVENOX 30 MG SC ×2 (09:00→20:34)
[2025-04-09] MEDS: NOVOLOG FLEXPEN-LOW RESISTANCE SC (09:18)
--- NOTE | 2025-04-09 09:22 | PHA.VAN.FU ---
Vancomycin Assessment / Plan
- Assessment
Renal Function: Stable
WBC's are: Trending Down
In the past 24 hrs, patient has been: Afebrile
Concomitant Antimicrobials: cefazolin
- Dosing Plan
Continue: Vanc 1000mg Q12H
- Monitoring Plan
No level(s) ordered at this time: consider levels in next few days
- Follow Up
Pharmacy will continue to follow.
Vancomycin Follow UP
- -
Patient Age: 79
Patient Sex: Female
Vancomycin Day #: 2
Indication: Skin And Soft Tissue
Requesting Provider: Dr Brannon / Mo
Pertinent Antimicrobial Allergies:
Sulfa (Sulfonamide Antibiotics - Hives
ciprofloxacin - Unknown
nitrofurantoin - has fibromyalgia and medication history of tendon tearing
Height / Weight:
Height 5 ft 5 in
Actual Weight 88.3 kg
Pertinent Past Medical History: DM, RA/PMR (steroids)
- Vital Signs / Lab Results
Temp Pulse Resp BP Pulse Ox
97.8 F 74 15 102/63 98
04/09/25 08:45 04/09/25 09:00 04/09/25 09:00 04/09/25 09:00 04/09/25 09:19
Lab Results - Hematology
04/08/25 04/09/25
12:40 04:46
WBC 18.8 H 15.1 H
Lab Results - Chemistry
04/08/25 04/08/25 04/09/25
12:40 21:42 04:46
BUN 14 11 9
Creatinine 0.5 L 0.5 L 0.5 L
Estimated Creat Clear 82 82 82
Albumin 3.4 L 2.8 L
04/08/25 04/08/25
12:40 19:11
Lactic Acid 2.0 1.3
Lab Results - Urine
04/09/25
04:46
Urine Nitrite (Reflex) Negative
Leukocyte Esterase Rfl Negative
Ur Squamous Epith Cells >30
Microbiology Results
04/08/25 13:03 Gram Stain - Preliminary
Bursa
[2025-04-09 09:29] LABS: Glucose - Point of Care 139 mg/dl (70-99)
--- NOTE | 2025-04-09 09:38 | W.PN.ORTHO ---
Today's Communication / Plan
-
Appreciate the primary team, continue treatment
Following intra-op Cx data (pending) to guide ABX therapy (Vanco/Ancef for now)
Await Cx results from urgent care tap (this was before ABX initiated and would be very helpful)
Splint removed from LUE. Soft dressings to remain for now
If deemed medically safe, may WBAT LUE for use of walker
Sling for comfort, but may gentle range elbow, wrist, hand
Ice/elevation
DVT ppx per primary
Will evaluate wound prior to D/c, whenever that may be
Will follow
Assessment
.
Distal Motor Intact: Yes
Dressing:
Clean, dry and intact. Dressing/splint in place
Assessment:
POD#1 Left olecranon bursa I&D April 20
Overall feeling much better
DNVI LUE
Plan
.
Surgery / Date: Left elbow I&D April 20 (Joseph)
DVT Prophylaxis: Other (per primary)
Activity:
Out of bed. If deemed safe may WBAT on walker (may weight bear with LUE for use of walker)
PT/OT
Discharge Plan: SNF (Likely, appreciate CM)
Subjective
.
.:
Patient resting comfortably this AM, daughter at bedside. Feeling much better than she was yesterday. No significant left elbow pain
Vital Signs and Labs
.
Vital Signs and Labs:
Lab Results
04/09/25 04:46
04/09/25 04:46
Temp Pulse Resp BP Pulse Ox
97.8 F 74 15 102/63 98
04/09/25 08:45 04/09/25 09:00 04/09/25 09:00 04/09/25 09:00 04/09/25 09:19
PT 15.4 Sec (11.4-14.6) H 04/09/25 04:46
INR 1.19 04/09/25 04:46
[2025-04-09] MEDS: TUMS CHEWABLE TABLET 200 MG PO (11:07)
--- NOTE | 2025-04-09 11:29 | W.PN.HOSP.TC ---
Today's Communication/Plan
-
Follow-up on the culture results
Blood pressure stabilized
Decrease steroid dosing
IV antibiotics per ID
Okay to transfer out of ICU
Assessment / Plan
Assessment / Plan
#Acute metabolic encephalopathy -presentation with confusion due to sepsis and shock.
Anticipate improvement with clinical improvement.
#Septic shock -due to left olecranon bursitis. Presentation with hypotension, tachycardia, leukocytosis and fever.
post op IV pressor requirement. Weaned off. Blood pressure stable.
continue IV vancomycin and IV cefazolin
Await for OR cultures
Follow-up on the blood culture results
Status post irrigation debridement left olecranon bursa on 04/08/2025
ID following
#Secondary adrenal sufficiency
due to chronic corticosteroid use.
Family states that steroids are to treat her multiple conditions including RA and PMR.
Can start weaning down steroids
#Hyponatremia -suspect hypovolemic.
Sodium stabilized.
#Chronic heart failure preserved EF
-stable.
Hypothyroidism
-continue levothyroxine. Check TSH.
DM2 without hyperglycemia -
use low resistance NovoLog scale. Hold oral agents.
Essential hypertension
hold meds for shock, hypotension.
Hyperlipidemia
on simvastatin.
Rheumatoid arthritis
PMR
Fibromyalgia
ARIANA -family states she is not using CPAP at home, unclear reasons.
GERD
Obesity due to excess calories
Full code
Anticipated Discharge: > 48 hours
Subjective/Interval History
-
Date of Service: April 09, 2025
states of left elbow soreness
Objective Data
-
Labs:
Laboratory Results
04/09/25
04:46
WBC 15.1 H
Hgb 11.8 L
Hct 38.1
Plt Count 234
PT 15.4 H
INR 1.19
APTT 30.4
Sodium 136
Potassium 3.6
Chloride 109 H
Carbon Dioxide 21 L
BUN 9
Creatinine 0.5 L
Glucose 136 H
Calcium 7.4 L
Total Bilirubin 0.9
AST 21
ALT 16
Alkaline Phosphatase 66
Vital Signs:
Vital Signs
Temp Pulse Resp BP Pulse Ox
97.8 F 80 16 123/64 96
04/09/25 08:45 04/09/25 11:00 04/09/25 11:00 04/09/25 09:54 04/09/25 09:54
I&O
04/08/25 04/09/25 04/10/25
06:59 06:59 06:59
Intake Total 2200 / 2200
Output Total 1200 / 1200
Balance 1000 / 1000
Physical Exam
-
General: Well Developed and No Apparent Distress
HEENT: Normocephalic, Atraumatic and Moist Mucous Membranes
Respiratory: Clear to Auscultation
Cardiac: Regular Rhythm and S1/S2; Negative Murmur, Rub or Gallop
GI: Soft, Nontender, Nondistended and Normal Bowel Sounds; Negative Organomegaly
Rectal: Deferred by Provider
Musculoskeletal: No Clubbing, No Cyanosis and Edema, Left Upper Extrem (in sling. Covered in JODI wrap. )
Skin: Negative Rash
Neuro: Awake and Nonfocal/Grossly Intact
Psych: Calm
Data Reviewed
-
Total Time Spent with Patient (in minutes): 55
--- NOTE | 2025-04-09 11:52 | W.PN.ID1 ---
Date of Service
Date of Service: April 09, 2025
Today's Communication
Continue VAncomycin
Assessment / Plan
# Acute left olecranon bursitis with MRSA
# Leukocytosis
# RA, PMR on chronic steroid
- Olecranon aspiration fluid too viscous for WBC count, 94% PMN
Gram stain: GPC, cx MRSA
- 04/08/25 s/p OR I+D. deep cx pending
- DC cefazolin.
- Continue Vancomycin
- Trend WBC
- Contact isolation
Chief Complaint
-: Other (olecranon bursitis)
Subjective / Review of Systems
Elbow sore
Vital Signs / Physical Exam
Vital Signs
Vital Signs
Temp Pulse Resp BP Pulse Ox
97.8 F 93 21 126/57 98
04/09/25 08:45 04/09/25 11:34 04/09/25 11:34 04/09/25 11:34 04/09/25 11:34
Physical Exam
Constitutional: No Acute Distress
Cardiovascular: Regular Rate and S1/S2
Pulmonary: Clear
Gastrointestinal: Soft, Non Tender and Non Distended
Extremities: Edema (LUE)
Wound: Other (Left elbow dressing in place)
Neurological: AO x 3
Objective Data
Lab Data
Lab Results
04/09/25 04:46
04/09/25 04:46
PT 15.4 Sec (11.4-14.6) H 04/09/25 04:46
INR 1.19 04/09/25 04:46
APTT 30.4 Sec (23.4-35.0) 04/09/25 04:46
Estimated Creat Clear 82 ml/min 04/09/25 04:46
Lactic Acid 1.3 mmol/L (0.7-2.0) 04/08/25 19:11
Total Bilirubin 0.9 mg/dl (0.2-1.3) 04/09/25 04:46
AST 21 U/L (14-36) 04/09/25 04:46
ALT 16 U/L (0-35) 04/09/25 04:46
Alkaline Phosphatase 66 U/L (38-126) 04/09/25 04:46
Most recent labs reviewed.
Micro Results:
04/08/25 13:03 Wound Culture - Pending
Bursa Gram Stain - Preliminary
04/08/25 Unknown Anaerobic Culture - Pending
Bursa
04/08/25 Unknown Wound Culture - Pending
Bursa Gram Stain - Pending
04/08/25 17:40 Tissue Culture - Pending
Bursa Gram Stain - Pending
04/09/25 04:46 Urine Culture - Pending
Urine
04/08/25 17:40 Anaerobic Culture - Pending
Abscess
04/08/25 12:40 Blood Culture - Pending
Blood/Venous
04/08/25 13:30 Blood Culture - Pending
Blood/Venous
04/08/25 CXR: Small patchy opacity in the left lung base, mild pneumonia versus atelectasis.
[2025-04-09 13:27] LABS: Glucose - Point of Care 165 mg/dl (70-99)
[2025-04-09] MEDS: NOVOLOG FLEXPEN-LOW RESISTANCE 1 UNITS SC ×2 (13:34→17:14)
--- NOTE | 2025-04-09 13:53 | PTCARENOTE ---
Patient downgraded to tele level.
--- NOTE | 2025-04-09 14:15 | W.PN.UPDATE ---
Update Note
Progress Note Update
I spoke the patient regarding her code status and discussed what the different code status designations entail.
She wishes to update her code status to Do Not Resuscitate (DNR).
--- NOTE | 2025-04-09 15:52 | CM ---
VESTA Arreola IV/Ashley. Discharge POC: Therapy recommends SNF. Patient hopeful she can return home at [facility]. Will send SNF referral to [facility].
[2025-04-09 17:16] LABS: Glucose - Point of Care 170 mg/dl (70-99)
--- NOTE | 2025-04-09 17:38 | PTCARENOTE ---
Rec'd care of patient at 0700. Patient alert and oriented. [employer] (b/l hearing aids left at home). MAEx4. Limited range of motion in LUE. Ortho at bedside to assess extremity. Mina wrap placed back on. Neurovascular check wnl. NSR on tele with
occasional bursts of SVT. Discussed with Resident & Social Service Technician- plan to restart home dose of Metoprolol at 1999. Echo completed as ordered. BP stable off Isaías. +1 edema in b/l LE. Palpable pulses. Weaned to RA. Pulse ox 96-99%. Lung sounds shallow,
diminished throughout. Dry occasional cough. +BS. Appetite good. No BM. Purewick in place for urinary incontinence. Right arm INT infiltrated in am. Elevated and VAT notified. New INT placed. Assisted oob to chair in am x2RW. PT/OT ordered. See
worklist for full assessment and care.
--- NOTE | 2025-04-09 18:30 | TRANSFER ---
Patient transferred in bed with belongings to .
[2025-04-09] MEDS: LOPRESSOR 25 MG PO (18:48)
[2025-04-09] MEDS: TUMS CHEWABLE TABLET 400 MG PO (20:38)
[2025-04-09] MEDS: XALATAN OPHTHALMIC SOLUTION 1 DROP BOTH EYES (20:45)
[2025-04-09] MEDS: LOPRESSOR 2.5 MG IV (20:50)
--- NOTE | 2025-04-09 20:59 | PTCARENOTE ---
Received pt at shift change; Pt AAOx3, offers no complaints. Pt with a HR in the 170's on telemetry, denies palpitations/CP/SOB. HR intermittently bouncing from 100 to the 170's every 30-60 seconds. 1999 scheduled Metoprolol dose (25mg PO) given
early by dayshift RN in efforts to alleviate high HR. D/w covering PIN DRAFTING MACHINE OPERATOR who responded to the floor, 2.5mg IV Metoprolol ordered and given, see MAR. Labs ordered and sent. Pt remains asymptomatic, updated on POC, resting comfortably.
[2025-04-09 21:20] LABS: Hematocrit 35.8 % (37.0-47.0); Hemoglobin 11.3 g/dL (12.0-16.0); Mean Corp Hgb Conc. 31.6 g/dL (33.0-37.0); Mean Corpuscular Volume 92.0 fL (81.0-99.0); Platelet Count 272 10^3/uL (130-400); Red Cell Dist. Width 13.6 % (11.5-14.5)
[2025-04-09 22:10] LABS: Blood Urea Nitrogen 14 mg/dl (7-17); Calcium 7.6 mg/dl (8.4-10.2); Carbon Dioxide 23 mmol/L (22-30); Chloride 109 mmol/L (98-107); Estimated Creatinine Clearance 82 ml/min; Glucose 244 mg/dl (70-99); Magnesium 2.1 mg/dl (1.6-2.3); Potassium 3.5 mmol/L (3.5-5.1); Sodium 136 mmol/L (135-145); eGFR > 60.00
[2025-04-10] VITALS (8 sets, daily range): BP systolic 140–160; BP diastolic 71–87; PULSE 71–73; O2SAT 96–100; BMI 33.1
[2025-04-10 00:22] LABS: Glucose - Point of Care 198 mg/dl (70-99)
[2025-04-10] MEDS: ROXICODONE 5 MG PO ×2 (03:55→21:53)
--- NOTE | 2025-04-10 05:49 | W.PN.ORTHO ---
Today's Communication / Plan
-
79-year-old female POD#2 Left olecranon bursa I&D April [address] Ruiz.
- Appreciate the primary team, continue treatment.
- Intra-op Cx (+) MRSA. Continue IV Abx per ID; currently on Vanco (Ancef D/C).
- Soft dressings/JODI to remain for now. JODI wrap adjusted today.
- If deemed medically safe, may WBAT LUE for use of walker.
- Sling for comfort, but may gentle range elbow, wrist, hand.
- Ice/elevation for edema control. Digital ROM as tolerated.
- DVT Prophylaxis per primary team.
- Will evaluate wound prior to D/c, whenever that may be.
- Orthopedic surgery will continue to follow along.
Assessment
.
Distal Motor Intact: Yes
Dressing:
Clean, dry and intact. Soft dressing/JODI in place to LUE with sling.
Assessment:
POD#2 Left olecranon bursa I&D April 20
Plan
.
Surgery / Date: Left elbow I&D April 20 (Joseph)
DVT Prophylaxis: Other (Per Primary Team. )
Activity:
Out of bed.
If deemed safe may WBAT on walker (may weight bear with LUE for use of walker).
PT/OT.
Discharge Plan: SNF (Likely, Appreciate CM. )
Subjective
.
.:
Patient resting comfortably.
Vital Signs and Labs
.
Vital Signs and Labs:
Temp Pulse Resp BP Pulse Ox
98.8 F 73 18 140/71 93
04/10/25 03:20 04/10/25 03:20 04/10/25 03:20 04/10/25 03:20 04/10/25 03:20
PT 15.4 Sec (11.4-14.6) H 04/09/25 04:46
INR 1.19 04/09/25 04:46
[2025-04-10 06:08] LABS: Hematocrit 34.5 % (37.0-47.0); Hemoglobin 10.9 g/dL (12.0-16.0); Mean Corp Hgb Conc. 31.6 g/dL (33.0-37.0); Mean Corpuscular Volume 91.0 fL (81.0-99.0); Nucleated Red Blood Cells % 0 %; Platelet Count 266 10^3/uL (130-400); Red Cell Dist. Width 13.7 % (11.5-14.5)
[2025-04-10] MEDS: SYNTHROID 25 MCG PO (06:18)
[2025-04-10] MEDS: VANCOCIN 200 IV ×2 (06:19→17:18)
[2025-04-10 06:44] LABS: ALT (SGPT) 12 U/L (0-35); AST (SGOT) 18 U/L (14-36); Albumin 2.8 g/dl (3.5-5.0); Alkaline Phosphatase 58 U/L (38-126); Blood Urea Nitrogen 13 mg/dl (7-17); Calcium 7.7 mg/dl (8.4-10.2); Carbon Dioxide 24 mmol/L (22-30); Chloride 109 mmol/L (98-107); Estimated Creatinine Clearance 83 ml/min; Glucose 164 mg/dl (70-99); Potassium 3.8 mmol/L (3.5-5.1); Sodium 134 mmol/L (135-145); Total Protein 4.8 g/dl (6.3-8.2); eGFR > 60.00
[2025-04-10 07:36] LABS: Glucose - Point of Care 159 mg/dl (70-99)
[2025-04-10] MEDS: LOVENOX 30 MG SC ×2 (07:58→20:28)
[2025-04-10] MEDS: COLACE 100 MG PO ×2 (08:00→20:26)
[2025-04-10] MEDS: PROTONIX 40 MG PO ×2 (08:00→20:27)
[2025-04-10] MEDS: TUMS CHEWABLE TABLET 400 MG PO ×2 (08:00→15:52)
[2025-04-10] MEDS: LOPRESSOR 25 MG PO (08:00)
[2025-04-10] MEDS: SOLU-CORTEF 50 MG IV (08:00)
[2025-04-10] MEDS: NOVOLOG FLEXPEN-LOW RESISTANCE 1 UNITS SC ×2 (08:01→11:56)
[2025-04-10] MEDS: KCL 10 MEQ PO ×3 (08:27→21:53)
--- NOTE | 2025-04-10 09:30 | PN.CDI ---
CDI
- -
CDI:
Physician Documentation Request
Admit Date: 04/08/25 14:51
Dear Doctor Ruiz,
Please review the following and provide your response in the progress notes.
Clinical Indicators:
DATE OF OPERATION: 04/08/2025
PREOPERATIVE DIAGNOSIS: Left olecranon septic bursitis.
POSTOPERATIVE DIAGNOSIS: Left olecranon septic bursitis.
PROCEDURE PERFORMED:
#...Irrigation and debridement of left olecranon bursa.
#DESCRIPTION OF PROCEDURE:
#...An approximately 6 cm incision curving around the point of the olecranon
#...radially was made with a 15 blade.
#...Fibrinous and mucinous material was debrided from the skin
#...and olecranon.
#...All viable and necrotic tissue was removed from the wound.
#...There was a spot of drainage, possibly from the prior aspiration,
#...which was debrided with a curette.
#...At the end of the mechanical debridement, there was no friable tissue left
#...and all tissues visualized had bleeding surfaces.
#...At this point, 1 L of a dilute Betadine solution was irrigated into the wound.
#...This was followed by 3 L of sterile saline. At this point, the irrigation was complete.
Based on the above and your clinical assessment, please specify further clarification regarding the debridement.
Please specify the type of debridement performed:
1. Excisional Debridement - defined as removal by excision of devitalized tissue, necrosis or slough
2. Non-excisional debridement - defined as removal of devitalized tissue, necrosis or slough by such methods as irrigation, brushing, scrubbing or washing.
If the debridement was excisional, please also include:
1. Type of instrument used (#11 blade, #15 blade etc.)
2. What was excised (necrotic tissue, gangrenous tissue, slough etc.)
For excisional or non-excisional, please also include:
1. Depth of debridement (skin, subcutaneous tissue, fascia, muscle, bone etc)
2. Size and appearance of the wound (L, W, D, color of wound, drainage)
Use of terms such as suspected, likely, concern for, or probable (associated with a specific diagnosis that is being evaluated, monitored, or treated as if it exists) are acceptable and can be coded in the inpatient setting, when documented at the
time of discharge.
Thank you,
Kassie Almonte RN BSN CCDS
CDI Specialist
Please contact via tiger text
Please use your independent medical judgment in providing your response.
[2025-04-10 09:50] LABS: Magnesium 2.3 mg/dl (1.6-2.3)
--- NOTE | 2025-04-10 10:16 | W.PN.ORTHO ---
Today's Communication / Plan
-
Please see prior progress note for management and plan
Assessment
.
Dressing:
Clean, dry and intact.
Plan
.
Surgery / Date: Left elbow I&D April 20 (Joseph)
Activity:
Out of bed.
PT/OT
Subjective
.
.:
Responding to a CDI query:
Excisional debridement using a 15 blade and rongeur was performed of the bursa and subcutaneous necrotic slough and abscess. The wound present at the time of surgery was a draining needle puncture wound from prior aspirations. The wound was
erythematous with purulent drainage a the time of surgery
Vital Signs and Labs
.
Vital Signs and Labs:
Lab Results
04/10/25 05:51
04/10/25 05:51
Temp Pulse Resp BP Pulse Ox
98.1 F 72 18 143/78 95
04/10/25 07:21 04/10/25 08:00 04/10/25 07:21 04/10/25 08:00 04/10/25 07:21
PT 15.4 Sec (11.4-14.6) H 04/09/25 04:46
INR 1.19 04/09/25 04:46
--- NOTE | 2025-04-10 10:46 | W.PN.HOSP.TC ---
Today's Communication/Plan
-
Await wound culture
Postop management for weightbearing per orthopedic
IV vancomycin
Increase Toprol
Replete Phos
Assessment / Plan
Assessment / Plan
General: Well Developed and No Apparent Distress
HEENT: Normocephalic, Atraumatic and Moist Mucous Membranes
Respiratory: Clear to Auscultation
Cardiac: Regular Rhythm and S1/S2; Negative Murmur, Rub or Gallop
GI: Soft, Nontender, Nondistended and Normal Bowel Sounds; Negative Organomegaly
Rectal: Deferred by Provider
Musculoskeletal: No Clubbing, No Cyanosis and Edema, Left Upper Extrem (in sling. Covered in JODI wrap. )
Skin: Negative Rash
Neuro: Awake and Nonfocal/Grossly Intact
Psych: Calm
#Acute metabolic encephalopathy -presentation with confusion due to sepsis and shock.
Anticipate improvement with clinical improvement.
#Septic shock -due to left olecranon bursitis. Presentation with hypotension, tachycardia, leukocytosis and fever.
post op IV pressor requirement. Weaned off. Blood pressure stable.
continue IV vancomycin
Wound cultures from with MRSA infection.
Follow-up on the blood culture results preliminary negative
Status post irrigation debridement left olecranon bursa on 04/08/2025
Placed on Lovenox per orthopedic
ID following
#Secondary adrenal sufficiency
due to chronic corticosteroid use.
Family states that steroids are to treat her multiple conditions including RA and PMR.
Can start weaning down steroids to hydrocortisone daily
#SVT
Magnesium potassium noted
Increase Toprol to 37.5 mg twice daily. Can increase further if needed.
#Hyponatremia -suspect hypovolemic.
Sodium stabilized.
#Chronic heart failure preserved EF
-stable.
Hypothyroidism
-continue levothyroxine.
DM2 without hyperglycemia -
use low resistance NovoLog scale. Hold oral agents.
Essential hypertension
Continue with Toprol. Holding losartan.
Hyperlipidemia
on simvastatin.
Rheumatoid arthritis
PMR
Fibromyalgia
ARIANA -family states she is not using CPAP at home, unclear reasons.
GERD
Obesity due to excess calories
Hyperphosphatemia replete and monitor
Full code
DVT prophylaxis on Lovenox
Anticipated Discharge: > 48 hours
Subjective/Interval History
-
Date of Service: April 10, 2025
Overnight events and telemetry noted
Patient asymptomatic without any palpitations
Objective Data
-
Labs:
Laboratory Results
04/10/25
05:51
WBC 12.0 H
Hgb 10.9 L
Hct 34.5 L
Plt Count 266
Sodium 134 L
Potassium 3.8
Chloride 109 H
Carbon Dioxide 24
BUN 13
Creatinine 0.4 L
Glucose 164 H
Calcium 7.7 L
Total Bilirubin 0.8
AST 18
ALT 12
Alkaline Phosphatase 58
Vital Signs:
Vital Signs
Temp Pulse Resp BP Pulse Ox
98.1 F 72 18 143/78 95
04/10/25 07:21 04/10/25 08:00 04/10/25 07:21 04/10/25 08:00 04/10/25 08:00
I&O
04/09/25 04/10/25 04/11/25
06:59 06:59 06:59
Intake Total 2200 / 2320 1540 / 1540
Output Total 1200 / 1200
Balance 1000 / 1120 1540 / 1540
Data Reviewed
-
Total Time Spent with Patient (in minutes): 55
[2025-04-10] MEDS: SODIUM PHOSPHATE 255 MEQ IV (11:13)
[2025-04-10] MEDS: TOPROL XL 12.5 MG PO (11:17)
[2025-04-10 11:39] LABS: Glucose - Point of Care 164 mg/dl (70-99)
--- NOTE | 2025-04-10 12:37 | PTCARENOTE ---
Patient with intermittent periods of sinus tach on monitor 120-130s, asymptomatic, episodes sustain for 2-3 minutes before breaking back into NSR 60s-70s. Patient sitting up in bed stating no complaints, states she cannot feel when these episodes
occur. MD aware, scheduled PO metoprolol dosing increased to 37.5mg BID, dose administered by this RN - see MAR. Patient continuing with intermittent episodes of sinus tach on monitor after new metoprolol dose, still asymptomatic, MD aware, no other
new orders at this time.
--- NOTE | 2025-04-10 12:50 | W.PN.ID1 ---
Date of Service
Date of Service: April 10, 2025
Today's Communication
- Continue Vancomycin IV
Assessment / Plan
# Acute left olecranon bursitis with MRSA
# Leukocytosis - improving
# RA, PMR on chronic steroid
- Olecranon aspiration fluid too viscous for WBC count, 94% PMN
Gram stain: GPC, cx MRSA
- 04/08/25 s/p OR I+D. deep cx MRSA
- Continue Vancomycin IV
- At time of discharge, transition to doxycycline 100mg po bid through 04/20/25.
- Trend WBC
- Contact isolation
Chief Complaint
-: Other (olecranon bursitis)
Vital Signs / Physical Exam
Vital Signs
Vital Signs
Temp Pulse Resp BP Pulse Ox
98.5 F 72 18 160/87 96
04/10/25 11:28 04/10/25 11:28 04/10/25 11:28 04/10/25 11:28 04/10/25 11:28
Physical Exam
Constitutional: No Acute Distress
Cardiovascular: Regular Rate
Gastrointestinal: Soft and Non Tender
Extremities: Erythema (LUE: decrease edema)
Objective Data
Lab Data
Lab Results
04/10/25 05:51
04/10/25 05:51
PT 15.4 Sec (11.4-14.6) H 04/09/25 04:46
INR 1.19 04/09/25 04:46
APTT 30.4 Sec (23.4-35.0) 04/09/25 04:46
Estimated Creat Clear 83 ml/min 04/10/25 05:51
Lactic Acid 1.3 mmol/L (0.7-2.0) 04/08/25 19:11
Total Bilirubin 0.8 mg/dl (0.2-1.3) 04/10/25 05:51
AST 18 U/L (14-36) 04/10/25 05:51
ALT 12 U/L (0-35) 04/10/25 05:51
Alkaline Phosphatase 58 U/L (38-126) 04/10/25 05:51
Most recent labs reviewed.
Micro Results:
04/08/25 Unknown Anaerobic Culture - Preliminary
Bursa Culture pending. Anaerobic cultures are examined after 3
days incubation. Additional information to follow.
04/08/25 Unknown Wound Culture - Preliminary
Bursa Staph aureus MRSA
Gram Stain - Preliminary
04/08/25 17:40 Anaerobic Culture - Preliminary
Abscess Culture pending. Anaerobic cultures are examined after 3
days incubation. Additional information to follow.
04/08/25 17:40 Tissue Culture - Preliminary
Bursa Staph aureus MRSA
Gram Stain - Preliminary
04/09/25 04:46 Urine Culture - Final
Urine No Significant Growth
04/08/25 13:03 Wound Culture - Final
Bursa Staph aureus MRSA
Gram Stain - Final
04/08/25 13:30 Blood Culture - Preliminary
Blood/Venous No Growth in 24 hours- Final report to follow
04/08/25 12:40 Blood Culture - Preliminary
Blood/Venous No Growth in 24 hours- Final report to follow
04/08/25 CXR: Small patchy opacity in the left lung base, mild pneumonia versus atelectasis.
--- NOTE | 2025-04-10 14:14 | CM ---
CM following re: discharge planning.
Reviewed pt's chart, met with pt.
PT and OT evaluations noted - SNF level of cafe recommended. per CM note, pt referred to [facility] for a short term rehab.
D/C plan: [facility] when medically stable.
CM will follow to assist pt with discharge to [facility].
--- NOTE | 2025-04-10 15:44 | PHA.VAN.FU ---
Vancomycin Assessment / Plan
- Assessment
Renal Function: Stable
WBC's are: Trending Down
In the past 24 hrs, patient has been: Afebrile
- Dosing Plan
Continue: Vanc 1000mg Q12H
- Monitoring Plan
No level(s) ordered at this time: consider levels in next few days
Monitoring Comments: will hold off for now to ensure fully accumulated with BMI > 30
- Follow Up
Pharmacy will continue to follow.
Vancomycin Follow UP
- -
Patient Age: 79
Patient Sex: Female
Vancomycin Day #: 3
Indication: Skin And Soft Tissue
Requesting Provider: Dr Brannon / [place]
Pertinent Antimicrobial Allergies:
Sulfa (Sulfonamide Antibiotics - Hives
ciprofloxacin - Unknown
nitrofurantoin - has fibromyalgia and medication history of tendon tearing
Height / Weight:
Height 5 ft 5 in
Actual Weight 90.174 kg
Pertinent Past Medical History: DM, RA/PMR (steroids)
- Vital Signs / Lab Results
Temp Pulse Resp BP Pulse Ox
98.0 F 73 20 140/78 97
04/10/25 15:22 04/10/25 15:22 04/10/25 15:22 04/10/25 15:22 04/10/25 15:22
Lab Results - Hematology
04/08/25 04/09/25 04/09/25
12:40 04:46 21:01
WBC 18.8 H 15.1 H 14.0 H
04/10/25
05:51
WBC 12.0 H
Lab Results - Chemistry
04/08/25 04/08/25 04/09/25
12:40 21:42 04:46
BUN 14 11 9
Creatinine 0.5 L 0.5 L 0.5 L
Estimated Creat Clear 82 82 82
Albumin 3.4 L 2.8 L
04/09/25 04/10/25
21:01 05:51
BUN 14 13
Creatinine 0.4 L 0.4 L
Estimated Creat Clear 82 83
Albumin 2.8 L
04/08/25 04/08/25
12:40 19:11
Lactic Acid 2.0 1.3
Microbiology Results
04/08/25 12:40 Blood Culture - Preliminary
Blood/Venous No Growth in 48 hours- Final report to follow
04/08/25 13:30 Blood Culture - Preliminary
Blood/Venous No Growth in 48 hours- Final report to follow
04/08/25 Unknown Anaerobic Culture - Preliminary
Bursa Culture pending. Anaerobic cultures are examined after 3
days incubation. Additional information to follow.
04/08/25 Unknown Wound Culture - Preliminary
Bursa Staph aureus MRSA
Gram Stain - Preliminary
04/08/25 17:40 Anaerobic Culture - Preliminary
Abscess Culture pending. Anaerobic cultures are examined after 3
days incubation. Additional information to follow.
04/08/25 17:40 Tissue Culture - Preliminary
Bursa Staph aureus MRSA
Gram Stain - Preliminary
04/09/25 04:46 Urine Culture - Final
Urine No Significant Growth
04/08/25 13:03 Wound Culture - Final
Bursa Staph aureus MRSA
Gram Stain - Final
[2025-04-10 16:54] LABS: Glucose - Point of Care 288 mg/dl (70-99)
[2025-04-10] MEDS: NOVOLOG FLEXPEN-LOW RESISTANCE 3 UNITS SC (17:17)
[2025-04-10] MEDS: MAG-TAB SR 84 MG PO (17:17)
[2025-04-10] MEDS: LOPRESSOR 50 MG PO (20:27)
[2025-04-10 21:27] LABS: Glucose - Point of Care 176 mg/dl (70-99)
[2025-04-10] MEDS: XALATAN OPHTHALMIC SOLUTION 1 DROP BOTH EYES (21:54)
[2025-04-11] VITALS (8 sets, daily range): BP systolic 103–173; BP diastolic 56–84; PULSE 71; O2SAT 94; BMI 32.9
[2025-04-11] MEDS: SYNTHROID 25 MCG PO (06:07)
[2025-04-11] MEDS: VANCOCIN 200 IV (06:07)
[2025-04-11 07:30] LABS: Glucose - Point of Care 108 mg/dl (70-99)
[2025-04-11] MEDS: NOVOLOG FLEXPEN-LOW RESISTANCE SC ×2 (07:33→11:45)
--- NOTE | 2025-04-11 07:44 | W.PN.UPDATE ---
Update Note
Progress Note Update
Ms. Maddox is POD3 following her left olecranon bursa I&D performed by Dr. Ruiz. She is resting comfortably in bed this morning. She reports her symptoms are gradually improving with time. She does endorse slightly more aching today after
working with PT yesterday. She states her symptoms are well controlled at present, and is otherwise feeling well.
Directed exam of the left upper extremity reveals surgical dressing in place. This was removed to reveal surgical incision well approximated with sutures. No active drainage, purulence or bleeding. Mild erythema about the olecranon. Scattered
ecchymosis and mild edema throughout the left upper extremity. Patient able to reach full extension, and about 95 degrees of flexion of the elbow without pain. Full ROM of wrist and hand. Neurovascularly intact distally.
Labs pending this AM. Preliminary cultures with MRSA. Final culture pending.
79-year-old female POD#3 Left olecranon bursa I&D [address] Ruiz.
- Appreciate assistance of all teams in care of this patient, continue treatment.
- Intra-op Cx (+) MRSA. Continue IV Abx per ID; currently on Vanco (Ancef D/C).
- Wound appears to be healing well. Her incision was re-dressed with adaptic, gauze, rafael and JODI wrap.
- If deemed medically safe, may WBAT LUE for use of walker.
- Sling for comfort, but may perform gentle range elbow, wrist, hand.
- Ice/elevation for edema control. Digital ROM as tolerated.
- DVT Prophylaxis per primary team.
- Orthopedic surgery will continue to follow peripherally for now. If patient is still admitted in 2-3 days, will perform another wound check prior to dc.
[2025-04-11] MEDS: SOLU-CORTEF 50 MG IV (07:47)
[2025-04-11] MEDS: OSCAL CAL 500 250 MG PO (07:50)
[2025-04-11] MEDS: KCL 10 MEQ PO ×3 (07:50→21:00)
[2025-04-11] MEDS: LOPRESSOR 50 MG PO ×2 (07:50→21:00)
[2025-04-11] MEDS: PROTONIX 40 MG PO ×2 (07:50→21:00)
[2025-04-11] MEDS: VITAMIN D3 (cholecalciferol) 25 MCG PO (07:51)
[2025-04-11] MEDS: MUCINEX 600 MG PO (07:51)
[2025-04-11] MEDS: COLACE 100 MG PO ×2 (07:51→21:00)
[2025-04-11] MEDS: LOVENOX 30 MG SC ×2 (07:51→21:00)
[2025-04-11 07:59] LABS: Hematocrit 34.7 % (37.0-47.0); Hemoglobin 10.9 g/dL (12.0-16.0); Mean Corp Hgb Conc. 31.4 g/dL (33.0-37.0); Mean Corpuscular Volume 92.0 fL (81.0-99.0); Nucleated Red Blood Cells % 0 %; Platelet Count 271 10^3/uL (130-400); Red Cell Dist. Width 13.7 % (11.5-14.5)
[2025-04-11] MEDS: TUMS CHEWABLE TABLET 400 MG PO (07:59)
[2025-04-11 08:25] LABS: Blood Urea Nitrogen 13 mg/dl (7-17); Calcium 8.1 mg/dl (8.4-10.2); Carbon Dioxide 25 mmol/L (22-30); Chloride 110 mmol/L (98-107); Estimated Creatinine Clearance 83 ml/min; Glucose 110 mg/dl (70-99); Magnesium 2.2 mg/dl (1.6-2.3); Potassium 3.8 mmol/L (3.5-5.1); Sodium 134 mmol/L (135-145); eGFR > 60.00
--- NOTE | 2025-04-11 09:58 | VATNOTE ---
During routine assessment of PIV, it was noted that pt's arm looked swollen with redness and discoloration. Pt denies pain, but report's itching. Area marked with skin marker and measured to be 24 cm long x 18 cm wide. IV removed by PCN and heat
immediately applied to arm. Presumed vancomycin infiltrate as per PCN, it was the last thing to infuse. Pt with difficult vascular access, asked PCN to contact MD for hylenex order. Midline placed in pt's R arm with significant difficulty. Accessed
the basilic vein x2 and each time was unsuccessful in threading the wire. Moved to the brachial vein and was able to access the vessel and thread the wire, however, when inserting the PICC line through the introducer, this RN was unable to pass the
entire length of the Midline. Withdrew the catheter to an external catheter length of 6 cm (total catheter length of 19 cm) for good blood return. Discussed with MD concern for another possible infiltration and the seeming fragility of the patient's
veins. MD states they will speak with ID regarding plan for continued antibiotics. PCN made aware to check for blood return from midline prior to infusing medications.
--- NOTE | 2025-04-11 10:15 | W.PN.ID1 ---
Date of Service
Date of Service: April 11, 2025
Today's Communication
- Continue Vancomycin IV
- At time of discharge, transition to doxycycline 100mg po bid through 04/22/25.
Assessment / Plan
# Acute left olecranon bursitis with MRSA
# Leukocytosis - resolved
# RA, PMR on chronic steroid
- Olecranon aspiration fluid too viscous for WBC count, 94% PMN
Gram stain: GPC, cx MRSA
- 04/08/25 s/p OR I+D. deep cx MRSA
- Continue Vancomycin IV
- At time of discharge, transition to doxycycline 100mg po bid through 04/22/25.
- Contact isolation
Chief Complaint
-: Other (olecranon bursitis)
Subjective / Review of Systems
Elbow is sore. Skin itchy.
Vital Signs / Physical Exam
Vital Signs
Vital Signs
Temp Pulse Resp BP Pulse Ox
97.9 F 68 20 134/75 96
04/11/25 07:05 04/11/25 07:50 04/11/25 07:05 04/11/25 07:50 04/11/25 08:00
Physical Exam
Constitutional: No Acute Distress
Cardiovascular: Regular Rate and S1/S2
Pulmonary: Clear
Extremities: Edema (BUE )
Neurological: AO x 3
Objective Data
Lab Data
Lab Results
04/11/25 07:41
04/11/25 07:41
PT 15.4 Sec (11.4-14.6) H 04/09/25 04:46
INR 1.19 04/09/25 04:46
APTT 30.4 Sec (23.4-35.0) 04/09/25 04:46
Estimated Creat Clear 83 ml/min 04/11/25 07:41
Lactic Acid 1.3 mmol/L (0.7-2.0) 04/08/25 19:11
Total Bilirubin 0.8 mg/dl (0.2-1.3) 04/10/25 05:51
AST 18 U/L (14-36) 04/10/25 05:51
ALT 12 U/L (0-35) 04/10/25 05:51
Alkaline Phosphatase 58 U/L (38-126) 04/10/25 05:51
Most recent labs reviewed.
Micro Results:
04/08/25 12:40 Blood Culture - Preliminary
Blood/Venous No Growth in 48 hours- Final report to follow
04/08/25 13:30 Blood Culture - Preliminary
Blood/Venous No Growth in 48 hours- Final report to follow
04/08/25 Unknown Anaerobic Culture - Preliminary
Bursa Culture pending. Anaerobic cultures are examined after 3
days incubation. Additional information to follow.
04/08/25 Unknown Wound Culture - Preliminary
Bursa Staph aureus MRSA
Gram Stain - Preliminary
04/08/25 17:40 Anaerobic Culture - Preliminary
Abscess Culture pending. Anaerobic cultures are examined after 3
days incubation. Additional information to follow.
04/08/25 17:40 Tissue Culture - Preliminary
Bursa Staph aureus MRSA
Gram Stain - Preliminary
04/09/25 04:46 Urine Culture - Final
Urine No Significant Growth
04/08/25 13:03 Wound Culture - Final
Bursa Staph aureus MRSA
Gram Stain - Final
04/08/25 CXR: Small patchy opacity in the left lung base, mild pneumonia versus atelectasis.
[2025-04-11] MEDS: HYLENEX 150 UNITS SC ×2 (10:27→11:51)
--- NOTE | 2025-04-11 10:27 | VATNOTE ---
First dose of hylenex administered to R arm at this time. Heat applied immediately after injections. Will continue to monitor.
[2025-04-11] MEDS: TYLENOL 650 MG PO (10:30)
--- NOTE | 2025-04-11 10:46 | W.PN.HOSP.TC ---
Addendum entered and electronically signed by Rico Edmond MD 04/11/25 13:09:
Discussed with infectious disease. Patient with significant IV vancomycin infiltration and with limited option to administer additional IV antibiotics due to fragile veins/anatomy. Per ID patient can be switched to p.o. doxycycline. Orders
placed. Wound care also ordered.
Original Note:
Today's Communication/Plan
-
Wean hydrocortisone next 24 hours
IV vancomycin
ID recs
start dispo planning
Assessment / Plan
Assessment / Plan
General: Well Developed and No Apparent Distress
HEENT: Normocephalic, Atraumatic and Moist Mucous Membranes
Respiratory: Clear to Auscultation
Cardiac: Regular Rhythm and S1/S2; Negative Murmur, Rub or Gallop
GI: Soft, Nontender, Nondistended and Normal Bowel Sounds; Negative Organomegaly
Rectal: Deferred by Provider
Musculoskeletal: No Clubbing, No Cyanosis and Edema, Left Upper Extrem (in sling. Covered in JODI wrap. ) RUE swelling-demarcation noted
Skin: Negative Rash
Neuro: Awake and Nonfocal/Grossly Intact
Psych: Calm
#Acute metabolic encephalopathy -presentation with confusion due to sepsis and shock.
Anticipate improvement with clinical improvement.
#Septic shock -due to left olecranon bursitis. Presentation with hypotension, tachycardia, leukocytosis and fever.
post op IV pressor requirement. Weaned off. Blood pressure stable.
continue IV vancomycin for now. Pharmacy manage.
Wound cultures from with MRSA infection. Susceptibility noted. Sensitive to tetracycline.
Follow-up on the blood culture results preliminary negative
Status post irrigation debridement left olecranon bursa on 04/08/2025
Leukocytosis resolved.
Placed on Lovenox per orthopedic
ID following
# Right upper extremity vancomycin extravasation
Hylenex ordered wound care following
Ice packs
#Secondary adrenal sufficiency
due to chronic corticosteroid use.
Family states that steroids are to treat her multiple conditions including RA and PMR.
Can start weaning down steroids to hydrocortisone daily in 24h
#SVT
Magnesium potassium noted
Heart rate improved. Continue with increased dose of metoprolol 50 mg twice daily
#Hyponatremia -suspect hypovolemic.
Sodium stabilized.
#Chronic heart failure preserved EF
-stable.
Hypothyroidism
-continue levothyroxine.
DM2 without hyperglycemia -
use low resistance NovoLog scale. Hold oral agents.
Essential hypertension
Continue with Toprol. Holding losartan.
Hyperlipidemia
on simvastatin.
Rheumatoid arthritis
PMR
Fibromyalgia
ARIANA -family states she is not using CPAP at home, unclear reasons.
GERD
Obesity due to excess calories
Hyperphosphatemia replete and monitor
Full code
DVT prophylaxis on Lovenox
PT/OT SNF. CM aware.
Anticipated Discharge: 24 - 48 hours
Subjective/Interval History
-
Date of Service: April 11, 2025
states of RUE soreness
Objective Data
-
Labs:
Laboratory Results
04/11/25
07:41
WBC 9.0
Hgb 10.9 L
Hct 34.7 L
Plt Count 271
Sodium 134 L
Potassium 3.8
Chloride 110 H
Carbon Dioxide 25
BUN 13
Creatinine 0.5 L
Glucose 110 H
Calcium 8.1 L
Vital Signs:
Vital Signs
Temp Pulse Resp BP Pulse Ox
97.9 F 68 20 134/75 96
04/11/25 07:05 04/11/25 07:50 04/11/25 07:05 04/11/25 07:50 04/11/25 10:12
I&O
04/10/25 04/11/25 04/12/25
06:59 06:59 06:59
Intake Total 1540 / 1540 720 / 720 480 / 480
Balance 1540 / 1540 720 / 720 480 / 480
Data Reviewed
-
Total Time Spent with Patient (in minutes): 55
[2025-04-11] MEDS: HYDROCORTISONE 1% CREAM 1 APPLIC TOPICAL ×2 (11:38→21:00)
[2025-04-11 11:46] LABS: Glucose - Point of Care 123 mg/dl (70-99)
--- NOTE | 2025-04-11 11:51 | VATNOTE ---
R arm reassessed for possible 2nd dose of hylenex. This RN feels a second dose is needed. Arm still has swelling with redness and bruising and is now weeping. MD notified, wound consult recommended. 2nd dose of hylenex administered and heat applied.
Will continue to monitor.
--- NOTE | 2025-04-11 12:14 | CM ---
CM following re: discharge planning.
Reviewed pt's chart, met with pt.
PT and OT evaluations noted - SNF level of care recommended.
[facility] accepted the pt.
D/C plan: [facility] when medically stable.
CM will follow to assist pt with discharge to [facility].
--- NOTE | 2025-04-11 13:04 | VATNOTE ---
First dose of hylenex administered at this time, heat applied to arm immediately after injections. Will continue to monitor.
[2025-04-11] MEDS: VIBRAMYCIN 100 MG PO ×2 (15:46→21:00)
--- NOTE | 2025-04-11 15:47 | WOUNDNOTE ---
RIGHT LATERAL ARM
--- NOTE | 2025-04-11 15:48 | WOUNDNOTE ---
RIGHT LATERAL ARM
--- NOTE | 2025-04-11 15:49 | WOUNDNOTE ---
RIGHT POSTERIOR ARM
--- NOTE | 2025-04-11 15:53 | WOUNDNOTE ---
[facility] RN NOTE: Reviewed chart and met with patient and vascular access liaisonCaridad. Patient with IV infiltrate of Vancomycin discovered 04/11. At time of assessment there was no blistering or bruising. Affected area with mild erythema. Patient denied
pain. Pictures of affected area taken at time of assessment. No further assessment provided as patient was receiving PT session. Will sign off.
[2025-04-11] MEDS: ROXICODONE 2.5 MG PO ×2 (16:31→21:16)
[2025-04-11 17:02] LABS: Glucose - Point of Care 251 mg/dl (70-99)
[2025-04-11] MEDS: MAG-TAB SR 84 MG PO (17:15)
[2025-04-11] MEDS: NOVOLOG FLEXPEN-LOW RESISTANCE 3 UNITS SC (17:15)
--- NOTE | 2025-04-11 17:53 | PTCARENOTE ---
Patient's R arm swollen and red this AM, 0600 dose of IV vanco hung by night cleaner RN prior to change of shift, dose finished and patient c/o mild itching throughout both arms, this RN and IV nurse at bedside this AM assessed swelling and redness in
R arm around R FA peripheral IV site. IV removed, R midline place by IV nurse, Hylenex administered by IV nurse per MD order - see NOV. R arm with mild erythema and weeping throughout shift, elevated with pillows and warm compress placed. Patient
B/L upper limb restriction for R midline and L elbow wound, dressing changed this AM by ortho. Patient not tolerating calf BPs d/t increased pain, MD aware, stated okay to use R FA for BPs, this RN confirmed with IV nurse. Patient OOB to chair this
shift, WBAT LUE with RUE and gentle ROM per ortho note.
[2025-04-11 21:01] LABS: Glucose - Point of Care 179 mg/dl (70-99)
[2025-04-11] MEDS: XALATAN OPHTHALMIC SOLUTION 1 DROP BOTH EYES (21:05)
[2025-04-12] MEDS: ROXICODONE 2.5 MG PO ×2 (03:05→07:21)
[2025-04-12 03:21] VITALS: BP 154/91
[2025-04-12 05:22] LABS: Hematocrit 35.8 % (37.0-47.0); Hemoglobin 11.2 g/dL (12.0-16.0); Mean Corp Hgb Conc. 31.3 g/dL (33.0-37.0); Mean Corpuscular Volume 92.5 fL (81.0-99.0); Nucleated Red Blood Cells % 0 %; Platelet Count 298 10^3/uL (130-400); Red Cell Dist. Width 13.8 % (11.5-14.5)
[2025-04-12] MEDS: SYNTHROID 25 MCG PO (05:39)
--- NOTE | 2025-04-12 05:39 | VATNOTE ---
RUE AT SITE OF PREVIOUS EXTRAVASATION IS MUCH IMPROVED. NO REDNESS OR SWELLING REMAINS AND PT REPORTS NO DISCOMFORT.
[2025-04-12 05:42] LABS: Blood Urea Nitrogen 13 mg/dl (7-17); Calcium 8.4 mg/dl (8.4-10.2); Carbon Dioxide 25 mmol/L (22-30); Chloride 107 mmol/L (98-107); Estimated Creatinine Clearance 83 ml/min; Glucose 103 mg/dl (70-99); Potassium 4.3 mmol/L (3.5-5.1); Sodium 135 mmol/L (135-145); eGFR > 60.00
[2025-04-12 05:49] VITALS: BMI 32.7
[2025-04-12] MEDS: LOPRESSOR 50 MG PO ×2 (06:45→19:41)
[2025-04-12 07:05] VITALS: BP 155/82
[2025-04-12] MEDS: MUCINEX 600 MG PO (07:38)
[2025-04-12] MEDS: PROTONIX 40 MG PO ×2 (07:38→19:42)
[2025-04-12 07:59] LABS: Glucose - Point of Care 98 mg/dl (70-99)
[2025-04-12] MEDS: NOVOLOG FLEXPEN-LOW RESISTANCE SC ×2 (08:04→13:24)
--- NOTE | 2025-04-12 09:11 | VATNOTE ---
Right forearm area marked where presumed Vanco infiltrate was on 04/11 not swollen. Appears slightly red and blotchy. Pt. denies pain. Does report itching.
[2025-04-12] MEDS: OSCAL CAL 500 250 MG PO (09:23)
[2025-04-12] MEDS: VIBRAMYCIN 100 MG PO ×2 (09:23→19:42)
[2025-04-12] MEDS: MEDROL 8 MG PO (09:23)
[2025-04-12] MEDS: LOVENOX 30 MG SC ×2 (09:24→19:41)
[2025-04-12] MEDS: KCL 10 MEQ PO ×3 (09:24→21:45)
[2025-04-12] MEDS: VITAMIN D3 (cholecalciferol) 25 MCG PO (09:24)
[2025-04-12] MEDS: COLACE 100 MG PO ×2 (09:24→19:41)
[2025-04-12] MEDS: HYDROCORTISONE 1% CREAM 1 APPLIC TOPICAL ×2 (09:26→19:46)
[2025-04-12] MEDS: ZOFRAN 4 MG IV ×2 (09:51→16:21)
--- NOTE | 2025-04-12 09:51 | W.PN.ID1 ---
Date of Service
Date of Service: April 12, 2025
Today's Communication
- Continue doxycycline 100mg po bid through 04/22/25.
Assessment / Plan
# Acute left olecranon bursitis with MRSA
# Leukocytosis - resolved
# RA, PMR on chronic steroid
- Olecranon aspiration fluid too viscous for WBC count, 94% PMN
Gram stain: GPC, cx MRSA
- 04/08/25 s/p OR I+D. deep cx MRSA
- s/p course of Vancomycin IV
- Continue doxycycline 100mg po bid through 04/22/25.
Chief Complaint
-: Other (olecranon bursitis)
Subjective / Review of Systems
Arm is better.
Vital Signs / Physical Exam
Vital Signs
Vital Signs
Temp Pulse Resp BP Pulse Ox
98.3 F 70 16 155/82 95
04/12/25 07:05 04/12/25 07:05 04/12/25 07:05 04/12/25 07:05 04/12/25 08:00
Physical Exam
Constitutional: No Acute Distress
Cardiovascular: Regular Rate and S1/S2
Pulmonary: Clear
Extremities: Edema (RUE decreased edema)
Wound: Other (LUE/elboe - decreased edema/erythema, ROM intact)
Neurological: AO x 3
Objective Data
Lab Data
Lab Results
04/12/25 04:48
04/12/25 04:48
PT 15.4 Sec (11.4-14.6) H 04/09/25 04:46
INR 1.19 04/09/25 04:46
APTT 30.4 Sec (23.4-35.0) 04/09/25 04:46
Estimated Creat Clear 83 ml/min 04/12/25 04:48
Lactic Acid 1.3 mmol/L (0.7-2.0) 04/08/25 19:11
Total Bilirubin 0.8 mg/dl (0.2-1.3) 04/10/25 05:51
AST 18 U/L (14-36) 04/10/25 05:51
ALT 12 U/L (0-35) 04/10/25 05:51
Alkaline Phosphatase 58 U/L (38-126) 04/10/25 05:51
Most recent labs reviewed.
Micro Results:
04/08/25 12:40 Blood Culture - Preliminary
Blood/Venous No Growth in 72 hours- Final report to follow
04/08/25 13:30 Blood Culture - Preliminary
Blood/Venous No Growth in 72 hours- Final report to follow
04/08/25 Unknown Wound Culture - Preliminary
Bursa Staph aureus MRSA
Gram Stain - Preliminary
04/08/25 17:40 Tissue Culture - Preliminary
Bursa Staph aureus MRSA
Gram Stain - Preliminary
04/08/25 Unknown Anaerobic Culture - Preliminary
Bursa Culture pending. Anaerobic cultures are examined after 3
days incubation. Additional information to follow.
04/08/25 17:40 Anaerobic Culture - Preliminary
Abscess Culture pending. Anaerobic cultures are examined after 3
days incubation. Additional information to follow.
04/09/25 04:46 Urine Culture - Final
Urine No Significant Growth
04/08/25 13:03 Wound Culture - Final
Bursa Staph aureus MRSA
Gram Stain - Final
04/08/25 CXR: Small patchy opacity in the left lung base, mild pneumonia versus atelectasis.
--- NOTE | 2025-04-12 09:53 | VNURNOTE ---
Home Health Liaison met with patient at bedside to discuss [facility] nurse/therapy, visits, schedule and homebound status. Patient is agreeable and understands that visits at home will be 2-3 x per week to assess and teach medical management. She is
familiar with [facility]. She confirms that she lives w/her spouse. Patient is aware that [facility] will contact them for start of care in 1-2 days after discharge from .
[facility] referral completed in [facility].
--- NOTE | 2025-04-12 10:25 | VATNOTE ---
4Fr. Right Brachial SL Midline dressing changed. TCL 19cm, ECL noted to be 8cm. Documented ECL of 6cm after insertion on 04/11. Catheter has excellent blood return.
--- NOTE | 2025-04-12 11:00 | PTCARENOTE ---
Patient had an episode of n/v after breakfast and medication administration; Zofran IV given. Patient reports relief.
[2025-04-12 11:05] VITALS: BP 142/68
--- NOTE | 2025-04-12 11:18 | CM ---
CM following re: discharge planning.
Reviewed pt's chart, met with pt.
Updated PT and OT evaluations noted - home PT/OT recommended. Pt is aware, expressed her agreement and pt requested [facility]. A referral to [facility] made.
Per ID MD, continue PO antibiotics
IMM reviewed, placed on chart, pt has a copy.
D/C plan: return back to her living arrangements at [facility] with [facility] and family support. Pt stated her daughter will transport at discharge.
CM will follow with discharge plan updates as hospitalization progresses.
--- NOTE | 2025-04-12 12:32 | W.PN.HOSP.TC ---
Addendum entered and electronically signed by Rico Edmond MD 04/12/25 14:40:
79-year-old female extensive past medical history of SVT, diabetes mellitus, hypertension, rheumatoid arthritis, fibromyalgia, ARIANA who presented with confusion. Patient was found to be septic shock. Patient was found to left olecranial bursitis..
Patient went to the operating room urgently by orthopedic status post washout. Status post stabilization of blood pressure. Patient was transferred out of the ICU. Patient wound culture with MRSA infection. Patient was evaluated by critical
care, infectious disease and orthopedic. IV vancomycin was transitioned to p.o. doxycycline. Patient with nausea intermittently. Patient with significant improvement in edema. Upon discharge patient will need to follow-up with orthopedic as
outpatient.
Addendum entered and electronically signed by Rico Edmond MD 04/12/25 13:12:
Discussed with orthopedic okay to discharge home.
Original Note:
Today's Communication/Plan
-
dc home
po abx
Assessment / Plan
Assessment / Plan
General: Well Developed and No Apparent Distress
HEENT: Normocephalic, Atraumatic and Moist Mucous Membranes
Respiratory: Clear to Auscultation
Cardiac: Regular Rhythm and S1/S2; Negative Murmur, Rub or Gallop
GI: Soft, Nontender, Nondistended and Normal Bowel Sounds; Negative Organomegaly
Rectal: Deferred by Provider
Musculoskeletal: No Clubbing, No Cyanosis and Edema, Left Upper Extrem (in sling. Covered in JODI wrap. ) RUE swelling-significantly improved
Skin: Negative Rash
Neuro: Awake and Nonfocal/Grossly Intact
Psych: Calm
#Acute metabolic encephalopathy -presentation with confusion due to sepsis and shock.
Resolved
#Septic shock -due to left olecranon bursitis. Presentation with hypotension, tachycardia, leukocytosis and fever.
post op IV pressor requirement. Weaned off. Blood pressure stable.
IV vancomycin discontinued and now started on doxycycline
Wound cultures from with MRSA infection. Susceptibility noted.
Follow-up on the blood culture results preliminary negative
Status post irrigation debridement left olecranon bursa on 04/08/2025
Leukocytosis resolved.
Outpatient orthopedic follow-up.
ID following
# Right upper extremity vancomycin extravasation
Hylenex ordered wound care following
Ice packs
#Nausea
zofran prn.
#Secondary adrenal sufficiency
due to chronic corticosteroid use.
Family states that steroids are to treat her multiple conditions including RA and PMR.
Transition to home regimen
#SVT
Magnesium potassium noted
Heart rate improved. Continue with increased dose of metoprolol 50 mg twice daily
#Hyponatremia -suspect hypovolemic.
Sodium stabilized.
#Chronic heart failure preserved EF
-stable.
Hypothyroidism
-continue levothyroxine.
DM2 without hyperglycemia -
use low resistance NovoLog scale. Hold oral agents.
Essential hypertension
Continue with Toprol. Can restart losartan 24 hours.
Blood pressure 142/68
Hyperlipidemia
on simvastatin.
Rheumatoid arthritis
PMR
Fibromyalgia
ARIANA -family states she is not using CPAP at home, unclear reasons.
GERD
Obesity due to excess calories
Hypophosphatemia replete and monitor
Full code
DVT prophylaxis on Lovenox
PT/OT [facility] on dc. CM aware.
More than 30 minutes spent in discharge including
Final examination of the patient
Summarizing hospital stay
Instructions for continuing care to all relevant caregivers
Preparation of discharge records, prescriptions, and referral forms
Total time spent (in minutes): 53
Anticipated Discharge: Today
Subjective/Interval History
-
Date of Service: April 12, 2025
States of feeling nauseous after taking a.m. medications
Improvement in right upper extremity edema
Objective Data
-
Labs:
Laboratory Results
04/12/25
04:48
WBC 8.1
Hgb 11.2 L
Hct 35.8 L
Plt Count 298
Sodium 135
Potassium 4.3
Chloride 107
Carbon Dioxide 25
BUN 13
Creatinine 0.6
Glucose 103 H
Calcium 8.4
Vital Signs:
Vital Signs
Temp Pulse Resp BP Pulse Ox
98.1 F 69 16 142/68 94
04/12/25 11:05 04/12/25 11:05 04/12/25 11:05 04/12/25 11:05 04/12/25 11:05
I&O
04/11/25 04/12/25 04/13/25
06:59 06:59 06:59
Intake Total 720 / 720 1080 / 1080
Balance 720 / 720 1080 / 1080
[2025-04-12 13:14] LABS: Glucose - Point of Care 152 mg/dl (70-99)
[2025-04-12 13:23] LABS: Magnesium 2.2 mg/dl (1.6-2.3)
[2025-04-12] MEDS: SODIUM PHOSPHATE 255 MEQ IV (14:52)
[2025-04-12 15:00] VITALS: BP 147/89
[2025-04-12 17:14] LABS: Glucose - Point of Care 249 mg/dl (70-99)
[2025-04-12] MEDS: NOVOLOG FLEXPEN-LOW RESISTANCE 2 UNITS SC (17:14)
[2025-04-12] MEDS: MAG-TAB SR 84 MG PO (17:14)
[2025-04-12 19:05] VITALS: BP 167/91
[2025-04-12 21:17] LABS: Glucose - Point of Care 254 mg/dl (70-99)
[2025-04-12] MEDS: XALATAN OPHTHALMIC SOLUTION 1 DROP BOTH EYES (21:45)
[2025-04-12] MEDS: PEPCID 20 MG PO (21:46)
[2025-04-12 23:01] VITALS: BP 154/82
[2025-04-13] VITALS (7 sets, daily range): BP systolic 119–168; BP diastolic 71–114; PULSE 83; BMI 32.6
[2025-04-13] MEDS: ROXICODONE 2.5 MG PO (02:48)
[2025-04-13] MEDS: SYNTHROID 25 MCG PO (06:15)
[2025-04-13] MEDS: LOPRESSOR 50 MG PO ×2 (06:15→20:56)
[2025-04-13 06:16] LABS: Hematocrit 36.0 % (37.0-47.0); Hemoglobin 11.2 g/dL (12.0-16.0); Mean Corp Hgb Conc. 31.1 g/dL (33.0-37.0); Mean Corpuscular Volume 92.3 fL (81.0-99.0); Nucleated Red Blood Cells % 0 %; Platelet Count 296 10^3/uL (130-400); Red Cell Dist. Width 13.7 % (11.5-14.5)
[2025-04-13] MEDS: LOPRESSOR PO (06:18)
[2025-04-13 06:42] LABS: Blood Urea Nitrogen 8 mg/dl (7-17); Calcium 8.3 mg/dl (8.4-10.2); Carbon Dioxide 27 mmol/L (22-30); Chloride 106 mmol/L (98-107); Estimated Creatinine Clearance 82 ml/min; Glucose 104 mg/dl (70-99); Potassium 4.1 mmol/L (3.5-5.1); Sodium 134 mmol/L (135-145); eGFR > 60.00
[2025-04-13 07:25] LABS: Glucose - Point of Care 94 mg/dl (70-99)
[2025-04-13] MEDS: NOVOLOG FLEXPEN-LOW RESISTANCE SC ×3 (08:27→17:22)
[2025-04-13] MEDS: MUCINEX 600 MG PO (08:57)
[2025-04-13] MEDS: MEDROL 8 MG PO (08:58)
[2025-04-13] MEDS: VIBRAMYCIN 100 MG PO (08:59)
[2025-04-13] MEDS: OSCAL CAL 500 PO ×2 (08:59→09:31)
[2025-04-13] MEDS: COZAAR 50 MG PO (08:59)
[2025-04-13] MEDS: PROTONIX 40 MG PO ×2 (08:59→20:56)
[2025-04-13] MEDS: COLACE PO ×3 (09:00→21:00)
[2025-04-13] MEDS: LOVENOX 30 MG SC ×2 (09:01→20:57)
[2025-04-13] MEDS: VITAMIN D3 (cholecalciferol) PO ×2 (09:01→09:31)
[2025-04-13] MEDS: HYDROCORTISONE 1% CREAM TOPICAL (09:02)
[2025-04-13] MEDS: KCL PO ×2 (09:02→09:31)
[2025-04-13] MEDS: HYDROCORTISONE 1% CREAM 1 APPLIC TOPICAL ×2 (09:05→20:57)
--- NOTE | 2025-04-13 09:12 | W.PN.HOSP.TC ---
Today's Communication/Plan
-
still not tolerating meds
Lasix 1 dose
Assessment / Plan
Assessment / Plan
79yo F with PMHX of SVT, DM, HTN, RA, fibromialgia, ARIANA admitted with AMS, found in septic shock 2/2 L olecranial bursitis, s/p washout by ortho. PeriOP Cx grew MRSA and as per ID consult - patient continued on Doxy till 04/22/25. Seen by PT/OT and
since patient is in assisted living with significant support including companions - she felt that she can continue to manage weel at her current place of residence. D/C held due to transient nausea. _Patient did not tolerate Doxy, so switched to
linezolid. ALso developed 3kg weight gain over the course of her hospital stay without SOB or hypoxia. Was on PRN LAsix at home and consulted to take Lasix daily x3 days and follow with her senior manufacturing engineer, while monitoring her weight.
A/P:
#Acute septic encephalopathy on admission 2/2 septic chock 2/2 L olecranon bursitis
S/P I&D by Ortho - cont outpatient f/u. WBAT LLE, sling for comfort
Doxy as per ID and MRSA in periOP Cx, however switched to linezolid on 04/13/25 due to GI intolerance
#Chronic HFpEF
weight gain 3kg since admission 2/2 IVF, remains asymptomatic
COnt with PRN Lasix at home amd follow with senior manufacturing engineer - patient verbalized understanding
#Transient nausea
no abd pain, resoved
#Right upper extremity vancomycin extravasation
Hylenex ordered wound care following
Ice packs
#DM type 2 with neuropathy
Accuchecks, Insulin SS, DM diet
#Obesity
BMI 32.6
advise to decrease calorie intake
#Iatrogenc adrenal insufficiency
#RA on Methylprednisone daily
#PMR
#GERD
#ARIANA
#Fibromyalgia
#Chronic hypokalemia
#Essential HT
#Recurrent UTI
#HDL
#Hx of SVT
#hypothyroidism
cont home meds
cont CPAP
DVT ppx Lovenox
DNR/DNI
I have spent at least 55min reviewing chart, test results, communication with consultants and providing direct patient care
Anticipated Discharge: Within 24 hours
Subjective/Interval History
-
Date of Service: April 13, 2025
Objective Data
-
Labs:
Laboratory Results
04/13/25
06:01
WBC 9.6
Hgb 11.2 L
Hct 36.0 L
Plt Count 296
Sodium 134 L
Potassium 4.1
Chloride 106
Carbon Dioxide 27
BUN 8
Creatinine 0.5 L
Glucose 104 H
Calcium 8.3 L
Vital Signs:
Vital Signs
Temp Pulse Resp BP Pulse Ox
98.2 F 66 18 158/80 94
04/13/25 07:32 04/13/25 08:59 04/13/25 07:32 04/13/25 08:59 04/13/25 07:32
I&O
04/12/25 04/13/25 04/14/25
06:59 06:59 06:59
Intake Total 1080 / 1080 1335 / 1335
Balance 1080 / 1080 1335 / 1335
Review of Systems
-
History Source: Patient
All other systems: Reviewed and negative
Physical Exam
-
General: No Apparent Distress
HEENT: Normocephalic
Respiratory: Clear to Auscultation
Cardiac: Regular Rhythm
GI: Soft, Nontender and Nondistended
Musculoskeletal: No Clubbing, No Cyanosis, Edema, Right Lower Extrem and Edema, Left Lower Extrem
Skin: Warm
Neuro: Awake, Alert, Oriented and AO x 3
Psych: Calm
--- NOTE | 2025-04-13 10:29 | W.PN.ID1 ---
Date of Service
Date of Service: April 13, 2025
Today's Communication
- Pt currently intolerant to doxycycline -> esophagitis. DC further doxycycline.
- Recommend Linezolid 600mg po bid through 04/22/25.
Assessment / Plan
# Acute left olecranon bursitis with MRSA
# Leukocytosis - resolved
# RA, PMR on chronic steroid
- Olecranon aspiration fluid too viscous for WBC count, 94% PMN
Gram stain: GPC, cx MRSA
- 04/08/25 s/p OR I+D. deep cx MRSA
- s/p course of Vancomycin IV
- Pt currently intolerant to doxycycline -> esophagitis. DC further doxycycline.
- Recommend Linezolid 600mg po bid through 04/22/25.
- Avoid tyramine-rich food products while on linezolid.
Chief Complaint
-: Other (olecranon bursitis)
Subjective / Review of Systems
c/o significant esophagitis from the doxycycline. Is sitting upright.
Vital Signs / Physical Exam
Vital Signs
Vital Signs
Temp Pulse Resp BP Pulse Ox
98.2 F 66 18 158/80 94
04/13/25 07:32 04/13/25 08:59 04/13/25 07:32 04/13/25 08:59 04/13/25 07:32
Physical Exam
Constitutional: Non-toxic
Cardiovascular: Regular Rate and S1/S2
Pulmonary: Clear
Gastrointestinal: Soft and Non Tender
Wound: Other (LUE/elbow - decreased edema/erythema, ROM intact)
Neurological: AO x 3
Objective Data
Lab Data
Lab Results
04/13/25 06:01
04/13/25 06:01
PT 15.4 Sec (11.4-14.6) H 04/09/25 04:46
INR 1.19 04/09/25 04:46
APTT 30.4 Sec (23.4-35.0) 04/09/25 04:46
Estimated Creat Clear 82 ml/min 04/13/25 06:01
Lactic Acid 1.3 mmol/L (0.7-2.0) 04/08/25 19:11
Total Bilirubin 0.8 mg/dl (0.2-1.3) 04/10/25 05:51
AST 18 U/L (14-36) 04/10/25 05:51
ALT 12 U/L (0-35) 04/10/25 05:51
Alkaline Phosphatase 58 U/L (38-126) 04/10/25 05:51
Most recent labs reviewed.
Micro Results:
04/08/25 12:40 Blood Culture - Preliminary
Blood/Venous No Growth in 4 days- Final report to follow
04/08/25 13:30 Blood Culture - Preliminary
Blood/Venous No Growth in 4 days- Final report to follow
04/08/25 17:40 Anaerobic Culture - Preliminary
Abscess NO ANAEROBES ISOLATED
04/08/25 Unknown Anaerobic Culture - Preliminary
Bursa NO ANAEROBES ISOLATED
04/08/25 Unknown Wound Culture - Preliminary
Bursa Staph aureus MRSA
Gram Stain - Preliminary
04/08/25 17:40 Tissue Culture - Preliminary
Bursa Staph aureus MRSA
Gram Stain - Preliminary
04/09/25 04:46 Urine Culture - Final
Urine No Significant Growth
04/08/25 13:03 Wound Culture - Final
Bursa Staph aureus MRSA
Gram Stain - Final
04/08/25 CXR: Small patchy opacity in the left lung base, mild pneumonia versus atelectasis.
Care Review
Plan reviewed with: Physician (Dr. Quintanilla)
[2025-04-13] MEDS: TUMS CHEWABLE TABLET 400 MG PO ×2 (11:14→17:24)
[2025-04-13 11:50] LABS: Glucose - Point of Care 111 mg/dl (70-99)
--- NOTE | 2025-04-13 12:08 | VATNOTE ---
Right arm vancomycin infiltrate resolved.
[2025-04-13] MEDS: ZYVOX 600 MG PO ×2 (12:20→20:56)
[2025-04-13] MEDS: LASIX 40 MG IV (14:11)
--- NOTE | 2025-04-13 14:59 | CM ---
CM following re: discharge planning.
Reviewed pt's chart, met with pt.
Updated PT and OT evaluations noted - home PT/OT recommended. Pt is aware, expressed her agreement and pt requested [facility]. [facility] liaison following
IMM reviewed yesterday, placed on chart, pt has a copy.
Please fax discharge instructions to [facility] at [phone].
D/C plan: return back to her living arrangements at [facility] with [facility] and family support. Pt stated her daughter will transport at discharge.
CM will follow with discharge plan updates as hospitalization progresses.
[2025-04-13] MEDS: KCL 10 MEQ PO ×2 (15:55→21:02)
[2025-04-13 17:21] LABS: Glucose - Point of Care 114 mg/dl (70-99)
[2025-04-13] MEDS: MAG-TAB SR 84 MG PO (17:24)
[2025-04-13] MEDS: PEPCID 20 MG PO (21:02)
[2025-04-13] MEDS: XALATAN OPHTHALMIC SOLUTION 1 DROP BOTH EYES (21:02)
[2025-04-13 21:14] LABS: Glucose - Point of Care 148 mg/dl (70-99)
[2025-04-13] MEDS: ZOFRAN 4 MG IV (22:30)
[2025-04-14 03:09] VITALS: BP 152/100
[2025-04-14 03:13] VITALS: BP 162/73
[2025-04-14] MEDS: TUMS CHEWABLE TABLET 400 MG PO ×2 (04:29→11:13)
[2025-04-14] MEDS: SYNTHROID 25 MCG PO (04:33)
[2025-04-14 07:44] VITALS: BP 135/73
[2025-04-14] MEDS: ZOFRAN 4 MG IV (07:49)
[2025-04-14] MEDS: PROTONIX 40 MG PO (07:49)
[2025-04-14] MEDS: TYLENOL 650 MG PO (07:49)
[2025-04-14 09:01] LABS: Glucose - Point of Care 122 mg/dl (70-99)
[2025-04-14 09:05] LABS: Hematocrit 37.0 % (37.0-47.0); Hemoglobin 11.7 g/dL (12.0-16.0); Mean Corp Hgb Conc. 31.6 g/dL (33.0-37.0); Mean Corpuscular Volume 90.7 fL (81.0-99.0); Nucleated Red Blood Cells % 0 %; Platelet Count 306 10^3/uL (130-400); Red Cell Dist. Width 13.6 % (11.5-14.5)
[2025-04-14 09:23] LABS: ALT (SGPT) 11 U/L (0-35); AST (SGOT) 17 U/L (14-36); Albumin 2.8 g/dl (3.5-5.0); Alkaline Phosphatase 60 U/L (38-126); Blood Urea Nitrogen 6 mg/dl (7-17); Calcium 8.4 mg/dl (8.4-10.2); Carbon Dioxide 30 mmol/L (22-30); Chloride 99 mmol/L (98-107); Estimated Creatinine Clearance 82 ml/min; Glucose 122 mg/dl (70-99); Magnesium 1.5 mg/dl (1.6-2.3); Potassium 3.4 mmol/L (3.5-5.1); Sodium 132 mmol/L (135-145); Total Protein 4.7 g/dl (6.3-8.2); eGFR > 60.00
--- NOTE | 2025-04-14 09:36 | W.PN.UPDATE ---
Update Note
Progress Note Update
Ms. Maddox is POD6 following her left olecranon bursa I&D performed by Dr. Ruiz. She is resting comfortably in bed this morning, laying on her left arm. She reports her symptoms are gradually improving with time, but has been experiencing
nausea from the antibiotics. she did not tolerate the doxycycline and has been switched to linezolid. She states her symptoms are well controlled at present, and is otherwise feeling well.
Directed exam of the left upper extremity reveals surgical dressing in place. This was removed to reveal surgical incision well approximated with sutures. No active drainage, purulence or bleeding. No fluctuance. Not able to express any fluid from
incision. Mild erythema about the olecranon. Scattered ecchymosis and mild edema throughout the left upper extremity. Patient able to reach full extension, and about 110 degrees of flexion of the elbow without pain. Full ROM of wrist and hand.
Neurovascularly intact distally.
79-year-old female POD#3 Left olecranon bursa I&D [address] Ruiz.
- Appreciate assistance of all teams in care of this patient, continue treatment.
- Intra-op Cx (+) MRSA. Continue Abx per ID; currently on linezolid.
- Wound appears to be healing well. Her incision was re-dressed with non stick dressing, gauze, rafael and JODI wrap.
- If deemed medically safe, may WBAT LUE for use of walker.
- Sling for comfort, but may perform gentle range elbow, wrist, hand.
- Ice/elevation for edema control. Digital ROM as tolerated.
- DVT Prophylaxis per primary team.
- Orthopedic surgery will continue to follow peripherally for now. If patient is still admitted in 2 days, will perform another wound check prior to dc.
-F/u in office 2 weeks post op for suture removal.
[2025-04-14] MEDS: COLACE PO (09:47)
[2025-04-14] MEDS: NOVOLOG FLEXPEN-LOW RESISTANCE SC (09:47)
[2025-04-14] MEDS: MUCINEX 600 MG PO (09:48)
[2025-04-14] MEDS: MEDROL 8 MG PO (09:48)
[2025-04-14] MEDS: LOPRESSOR 50 MG PO (09:48)
[2025-04-14] MEDS: VITAMIN D3 (cholecalciferol) 25 MCG PO (09:49)
[2025-04-14] MEDS: OSCAL CAL 500 250 MG PO (09:49)
[2025-04-14] MEDS: KCL 10 MEQ PO (09:50)
[2025-04-14] MEDS: LOVENOX 30 MG SC (09:51)
[2025-04-14] MEDS: COZAAR 50 MG PO (09:51)
[2025-04-14] MEDS: ZYVOX 600 MG PO (09:52)
[2025-04-14] MEDS: HYDROCORTISONE 1% CREAM 1 APPLIC TOPICAL (10:00)
[2025-04-14] MEDS: KCL 270 MEQ IV (10:42)
[2025-04-14] MEDS: FLUSH (NSS) 2 FLUSH IV (10:43)
[2025-04-14] MEDS: MAGNESIUM SULFATE 50 IV (10:43)
[2025-04-14 11:39] VITALS: BMI 31.6
[2025-04-14 12:00] VITALS: BP 105/55
[2025-04-14 12:11] LABS: Glucose - Point of Care 195 mg/dl (70-99)
--- NOTE | 2025-04-14 12:28 | W.PN.HOSP.TC ---
Today's Communication/Plan
-
dc
Assessment / Plan
Assessment / Plan
79yo F with PMHX of SVT, DM, HTN, RA, fibromialgia, ARIANA admitted with AMS, found in septic shock 2/2 L olecranial bursitis, s/p washout by ortho. PeriOP Cx grew MRSA and as per ID consult - patient continued on Doxy till 04/22/25. Seen by PT/OT and
since patient is in assisted living with significant support including companions - she felt that she can continue to manage weel at her current place of residence. D/C held due to transient nausea. _Patient did not tolerate Doxy, so switched to
linezolid. ALso developed 3kg weight gain over the course of her hospital stay without SOB or hypoxia. Potassium and magnesium repleted. Medically stable to be d/c home
A/P:
#Acute septic encephalopathy on admission 2/2 septic chock 2/2 L olecranon bursitis
S/P I&D by Ortho - cont outpatient f/u. WBAT LLE, sling for comfort
Doxy as per ID and MRSA in periOP Cx, however switched to linezolid on 04/13/25 due to GI intolerance and to cont till 04/22/25
#Chronic HFpEF
weight gain 3kg since admission 2/2 IVF, remains asymptomatic
COnt with PRN Lasix at home amd follow with mat sewer - patient verbalized understanding
#Transient nausea
no abd pain, resoved
#Right upper extremity vancomycin extravasation
Hylenex ordered wound care following
Ice packs
#DM type 2 with neuropathy
Accuchecks, Insulin SS, DM diet
#Obesity
BMI 32.6
advise to decrease calorie intake
#Iatrogenic adrenal insufficiency
#RA on Methylprednisone daily
#PMR
#GERD
#ARIANA
#Fibromyalgia
#Chronic hypokalemia
#Essential HT
#Recurrent UTI
#HDL
#Hx of SVT
#hypothyroidism
cont home meds
cont CPAP
DVT ppx Lovenox
DNR/DNI
I have spent at least 55min reviewing chart, test results, communication with consultants and providing direct patient care
Anticipated Discharge: Today
Subjective/Interval History
-
Date of Service: April 14, 2025
Objective Data
-
Labs:
Laboratory Results
04/14/25
08:48
WBC 9.6
Hgb 11.7 L
Hct 37.0
Plt Count 306
Sodium 132 L
Potassium 3.4 L
Chloride 99
Carbon Dioxide 30
BUN 6 L
Creatinine 0.6
Glucose 122 H
Calcium 8.4
Total Bilirubin 0.8
AST 17
ALT 11
Alkaline Phosphatase 60
Vital Signs:
Vital Signs
Temp Pulse Resp BP Pulse Ox
98.5 F 88 20 135/73 93
04/14/25 07:44 04/14/25 07:44 04/14/25 07:44 04/14/25 07:44 04/14/25 07:44
I&O
04/13/25 04/14/25 04/15/25
06:59 06:59 06:59
Intake Total 1335 / 1335 960 / 960
Output Total 1150 / 1150
Balance 1335 / 1335 -190 / -190
Review of Systems
-
History Source: Patient
All other systems: Reviewed and negative
Physical Exam
-
General: No Apparent Distress
HEENT: Normocephalic
Cardiac: Regular Rhythm
GI: Soft, Nontender and Nondistended
Neuro: Awake, Alert, Oriented and AO x 3
Psych: Calm
--- NOTE | 2025-04-14 12:33 | W.DCSUMMARY ---
Discharge Summary
Discharge Data
Date of Admission: 04/08/25
Date of Discharge: 04/14/25
-
Pending Results: No
Hospital Course
79yo F with PMHX of SVT, DM, HTN, RA, fibromialgia, ARIANA admitted with AMS, found in septic shock 2/2 L olecranial bursitis, s/p washout by ortho. PeriOP Cx grew MRSA and as per ID consult - patient continued on Doxy till 04/22/25. Seen by PT/OT and
since patient is in assisted living with significant support including companions - she felt that she can continue to manage weel at her current place of residence. D/C held due to transient nausea. _Patient did not tolerate Doxy, so switched to
linezolid. ALso developed 3kg weight gain over the course of her hospital stay without SOB or hypoxia. Potassium and magnesium repleted. Medically stable to be d/c home
I have spent at least 55min reviewing chart, test results, communication with consultants and providing direct patient care
Patient was managed for:
#Acute septic encephalopathy on admission 2/2 septic chock 2/2 L olecranon bursitis
#Chronic HFpEF
#Transient nausea
#Right upper extremity vancomycin extravasation
#DM type 2 with neuropathy
#Obesity
#Iatrogenic adrenal insufficiency
#RA on Methylprednisone daily
#PMR
#GERD
#ARIANA
#Fibromyalgia
#Chronic hypokalemia
#Essential HT
#Recurrent UTI
#HDL
#Hx of SVT
#hypothyroidism
Discharge Plan
-
Patient Disposition: Home with Home Care
Discharge Diagnosis/Procedures: Septic shock secondary to left olecranon bursitis status post I&D
Acute metabolic encephalopathy
Hyponatremia
Supraventricular tachycardia
Condition: Fair
Diet: Low Cholesterol
Activity: As tolerated
Driving Restrictions: No driving
Blood Work: CBC and BMP in 5 to 7 days by primary doctor.
Activity Restrictions/Additional Instructions:
Sling for comfort, but may perform gentle range elbow, wrist, hand.
Ice/elevation for edema control. Digital ROM as tolerated.
Continue Linezolid 600mg po twice a day through 04/22/25.
Linezolid Precautions: avoid tyramine-rich food products while on Linezolid.
��
Referrals:
Pilo Ruiz MD [Active, Orthopedics] - in one to two weeks
Lyubov Liu MD [Family Provider, Family Practice]
Additional Discharge Medication Instructions: Lopressor dose was increased to 50 mg twice daily
Prescriptions:
New
acetaminophen 325 mg Tablet
650 mg PO Q4HPRN PRN (Reason: pain) Qty: 30 0RF
metoprolol tartrate 50 mg Tablet
50 mg PO BID 30 Days Qty: 60 0RF
linezolid 600 mg Tablet
600 mg PO BID Qty: 15 0RF
Probiotic 3 billion cell capsule
3,000 mmu cells PO DAILY Qty: 30 0RF
Continued
simvastatin [Zocor] 10 MG tablet
10 mg PO QPM
levothyroxine 25 MCG tablet
25 mcg PO DAILY
pantoprazole [Protonix] 40 mg Tablet,Delayed Release (Dr/Ec)
40 mg PO BID
latanoprost 0.005 % Drops
1 drp BOTH EYES DAILY
calcium citrate 250 mg calcium Tablet
250 mg PO DAILY
magnesium oxide 400 mg magnesium Tablet
400 mg PO QPM
losartan 50 MG tablet
50 mg PO DAILY Qty: 0 0RF
acetaminophen 650 mg Tablet Extended Release
650 mg PO Q8HPRN PRN (Reason: mild pain)
Januvia 100 mg Tablet
100 mg PO DAILY
estradiol 0.01 % (0.1 mg/gram) cream
1 appful VAGINAL MOTH
Tyrvaya 0.03 mg/spray spray, metered, non-aerosol
1 spray INTRANASAL BID
methylprednisolone 8 mg tablet
8 mg PO DAILY
cholecalciferol (vitamin D3) 25 mcg (1,000 unit) Tablet
25 mcg PO DAILY
guaifenesin 600 mg Tablet Extended Release 12hr
600 mg PO DAILY
Held
potassium chloride 10 MEQ tablet,ER particles/crystals
10 meq PO TID Qty: 0
Hold Instructions: Resume on 04/14/25.
methenamine hippurate 1 gram tablet
1 g PO BID Qty: 30 0RF
Hold Instructions: Resume on 04/23/25.
Discontinued
metoprolol tartrate 25 mg tablet
25 mg PO BID Qty: 60 3RF
Discharge Orders:
Discharge Patient (As Directed); Ordered 04/14/25
Ordered By: aMrcelo Quintanilla
Discharge Date and Time
Print Language: LATVIAN
[2025-04-14] MEDS: NOVOLOG FLEXPEN-LOW RESISTANCE 1 UNITS SC (13:41)
--- NOTE | 2025-04-14 15:58 | CM ---
Patient has been medically cleared for discharge to home with [facility]MAN RN, PT/OT services. Daughter to transport home.
[2025-04-14 16:00] VITALS: BP 150/82
== END 2025-04-14 18:34 | disposition home health service (06) | DRG 853 ==
LOC: 2 NORTH 14:51
PROVIDERS: Hospitalist; Nurse Practitioner Family; ADMITTING PHYSICIAN Hospitalist; ATTENDING PHYSICIAN Internal Medicine; CONSULT PHYSICIAN Internal Medicine Infectious Disease; CONSULT PHYSICIAN Student in an Organized Health Care Education/Training Program; EMERGENCY PHYSICIAN Emergency Medicine; FAMILY PHYSICIAN Family Medicine; OTHER PHYSICIAN Internal Medicine
PROC: 0R9M3ZZ Drainage of Left Elbow Joint, Percutaneous Approach (ICD-10-PCS; 2025-04-08)
PROC: 0MB40ZZ Excision of Left Elbow Bursa and Ligament, Open Approach (ICD-10-PCS; 2025-04-08)
DX: A41.02 Sepsis due to Methicillin resistant Staphylococcus aureus (principal); G93.41 Metabolic encephalopathy; R65.21 Severe sepsis with septic shock; I50.32 Chronic diastolic (congestive) heart failure; E87.1 Hypo-osmolality and hyponatremia; D84.9 Immunodeficiency, unspecified; L03.114 Cellulitis of left upper limb; J98.11 Atelectasis; E27.3 Drug-induced adrenocortical insufficiency; T80.818A Extravasation of other vesicant agent, initial encounter; I47.10 Supraventricular tachycardia, unspecified; M71.122 Other infective bursitis, left elbow; M06.9 Rheumatoid arthritis, unspecified; M35.3 Polymyalgia rheumatica; M79.7 Fibromyalgia; E03.9 Hypothyroidism, unspecified; E11.40 Type 2 diabetes mellitus with diabetic neuropathy, unspecified; E78.00 Pure hypercholesterolemia, unspecified; B95.62 Methicillin resistant Staphylococcus aureus infection as the cause of diseases classified elsewhere; F32.A Depression, unspecified; G47.33 Obstructive sleep apnea (adult) (pediatric); E83.39 Other disorders of phosphorus metabolism; K58.9 Irritable bowel syndrome, unspecified; I11.0 Hypertensive heart disease with heart failure; E87.6 Hypokalemia; E66.09 Other obesity due to excess calories; K21.9 Gastro-esophageal reflux disease without esophagitis; Y84.8 Other medical procedures as the cause of abnormal reaction of the patient, or of later complication, without mention of misadventure at the time of the procedure; Y92.239 Unspecified place in hospital as the place of occurrence of the external cause; I95.81 Postprocedural hypotension; Z66 Do not resuscitate; Z96.653 Presence of artificial knee joint, bilateral; Z87.19 Personal history of other diseases of the digestive system; Z87.440 Personal history of urinary (tract) infections; Z90.710 Acquired absence of both cervix and uterus; Z98.1 Arthrodesis status; Z90.49 Acquired absence of other specified parts of digestive tract; Z79.52 Long term (current) use of systemic steroids; Z88.2 Allergy status to sulfonamides; Z88.7 Allergy status to serum and vaccine; Z88.8 Allergy status to other drugs, medicaments and biological substances; Z88.1 Allergy status to other antibiotic agents; Z91.030 Bee allergy status; Z79.890 Hormone replacement therapy; Z79.84 Long term (current) use of oral hypoglycemic drugs; Z68.31 Body mass index [BMI] 31.0-31.9, adult; Z11.52 Encounter for screening for COVID-19; Z88.5 Allergy status to narcotic agent
CPT/HCPCS: 20605; 71045; 71046; 73070; 80048; 80053; 81003; 81015; 82248; 82962; 83036; 83605; 83735; 83930; 83935; 84100; 84300; 84443; 85014; 85018; 85025; 85027; 85610; 85730; 87040; 87070; 87075; 87086; 87147; 87176; 87186; 87205; 87811; 89051; 93005; 93306; 96374; 96375; 97110; 97116; 97163; 97167; 97530; 97535; 99291

== ENCOUNTER 2025-04-23 03:07 | Inpatient (IN) | payer MEDICARE, SELFPAY ==
[2025-04-22 19:14] VITALS: BP 166/69
[2025-04-22 19:16] VITALS: BP 166/69
[2025-04-22 19:32] LABS: Hematocrit 37.8 % (37.0-47.0); Hemoglobin 12.1 g/dL (12.0-16.0); Mean Corp Hgb Conc. 32.0 g/dL (33.0-37.0); Mean Corpuscular Volume 91.1 fL (81.0-99.0); Nucleated Red Blood Cells % 0.3 %; Platelet Count 297 10^3/uL (130-400); Red Cell Dist. Width 13.5 % (11.5-14.5)
[2025-04-22 19:46] LABS: COVID-19 Antigen Negative (Negative)
--- NOTE | 2025-04-22 19:46 | ED.GENMED ---
History of Present Illness
General
Chief Complaint: Abdominal Symptoms
Source: patient and ambulance crew
Time Seen by Provider: 04/22/25 19:14
History of Present Illness
History of Present Illness:
This patient is an 7-year-old female presents emergency department with persistent nausea ever since she was hospitalized recently for olecranon bursitis complicated by sepsis. At that time, she had her doxycycline changed to a different antibiotic
which she has been taking persistently as directed. Her last dose is tonight. She strongly believes that her nausea is related to this medication. Today, in addition to persistent nausea she also had dry heaves and was encouraged by her family to
be evaluated. She denies chest pain or pressure, dyspnea, abdominal pain, fever, chills, urinary symptoms, diarrhea, constipation, dizziness. She does note a recent cough without hemoptysis, sore throat, rhinorrhea, or other complaints.
Past History
Past History
ED Past Medical History: Fibromyalgia, GERD (Dyspepsia), HTN, Hypercholesterolemia, NIDDM (Diet controlled), Hypothyroidism, Psychiatric (Depression, ) and Other (rheumatoid arthritis, chronic nausea, intermittent diarrhea, vertigo, Diverticulitis,
TMJ, CPAP for sleep apnea, GI bleeding, UTI, Polymyalgia rheumatica, )
ED Past Surgical History: Appendectomy, Bowel resection, Cholecystectomy, Gynecological (Hysterectomy D&C, ovarian cyst), Orthopedic (Bilateral knee replacements Spinal fusion, Right foot surgery), Tonsilectomy, Urological (Bladder repair) and Other
(Surgery for small bowel obstruction)
Patient has exhibited threatening behavior?: No
PSI?: No
Social History
Tobacco: Non-smoker
Alcohol: None
Drug: None
Personal:
Living: with family
Employment: Retired
Family History
Family History: Hypertension
Phy Exam
Physical Exam
Physical Exam:
GENERAL: Alert , in no apparent distress
EYE: pupils equal and reactive
NECK: Supple, no significant adenopathy.
ENT: o/p clr, mmm.
CARDIAC: Regular rate and rhythm .
LUNGS: Clear breath sounds bilaterally, no acute respiratory distress, no wheezes/rales/rhonchi
ABDOMEN: Soft, without focal tenderness, no r/g
NEUROLOGICAL: Alert and oriented, nonfocal
SKIN: Warm and dry, skin intact. Left elbow exam deferred at patient request given she gets daily inspections and care
MUSCULOSKELETAL: Trace to 1+ bilateral lower extremity edema, well perfused.
PSYCH: Normal and appropriate interaction.
Course
Orders/Labs/Results
Orders:
Orders
04/22/25 19:20
Cardiac Monitoring- Treatment ONCE
Pulse Ox/cont/shift [RESP] Urgent
Quantity: 1
04/22/25 19:21
Electrocardiogram (*1) Urgent
Reason for Study: Other
Other Reason for Exam: sepsis
EKG- Treatment ONCE
04/22/25 19:24
COVID-19 Antigen Urgent
Source: Nasal Swab
Complete Blood Count/With Diff Urgent
Comprehensive Metabolic Panel Urgent
Lactic Acid Q4H
Comment: CANCEL 2nd LACTIC ACID IF 1st LACTIC ACID IS LESS THAN 2
Lipase Urgent
Troponin I Urgent
Blood Culture Q30M
PATRICK Source: Blood/Venous
Specimen Description:
Influenza A+B Rapid Molecular Urgent
PATRICK Source: Nasal Swab
Specimen Description:
04/22/25 19:29
Blood Culture Q30M
PATRICK Source: Blood/Venous
Specimen Description:
04/22/25 19:46
Ondansetron Injectable [Zofran] 4 mg IV NOW STA
04/22/25 20:18
Osmolality, Random Urine Urgent
Date Specimen was Collected: 04/22/25
Time Specimen was Collected: 20:17
Comment: ADD ON
Urinalysis Reflex To Culture Urgent
Date Specimen was Collected: 04/22/25
Time Specimen was Collected: 20:17
Urine Microscopic Reflex Cult Urgent
Urine Sodium Urgent
Date Specimen was Collected: 04/22/25
Time Specimen was Collected: 20:17
Comment: ADD ON
04/22/25 20:42
CR Chest - 2 Views Urgent
Comment:
Reason For Exam: hypoxia
04/22/25 22:21
Osmolality, Random Urine Urgent
Date Specimen was Collected: 04/23/25
Time Specimen was Collected: 10:27
Urine Sodium Urgent
Date Specimen was Collected: 04/23/25
Time Specimen was Collected: 10:27
04/22/25 22:22
CT Chest PE Study Urgent
Comment:
Reason For Exam: hypoxia, recent hosp
04/22/25 23:24
Add On- LAB Urgent
Tests Added?: urine osmolality, urine sodium
04/23/25 02:23
Admit/Transfer Patient As Directed
Co-Sign Provider:
Level of Care: Inpatient admission
Assign to:: Telemetry
Physician / Group: Roel
Diagnosis: Hyponatremia
Reason for Telemetry: Arrhythmia
Date to Stop Telemetry: 04/26/25
Time to Stop Telemetry: 11:00
Reason for Hospitalization: Hyponatremia
Expected length of stay greater than two midnights?: Yes
ELOS- Estimated Length of Stay in days: 3
I certify the patient meets the requirements for IP care: Yes
04/23/25 02:24
PRN Pain Medication Management As Directed
May give lesser potent ordered pain med per pt: Yes
preference::
Protocol:: Medication orders for pain may be administered in a
manner that supports deferring to patient preference
when the pt is:
- Requesting an ordered lesser potent pain medication.
Least to most potent pain medications are defined
as: acetaminophen < NSAID < tramadol < opioids
(morphine, oxycodone, hydromorphone).
- Requesting a lesser dose of the same medication IF
ORDERED.
- Requesting a less intrusive route of administration
if both routes are prescribed by the provider (PO <
IV).
04/23/25 02:28
Code Status As Directed
Resuscitation Status: Full Code
04/23/25 03:02
Code Status As Directed
Resuscitation Status: Do not resuscitate
Reached after discussion with pt or family/Healthcare POA: Yes
DNR Bracelet Application ONCE
04/23/25 03:43
Acetaminophen [Tylenol] 650 mg PO Q4HPRN PRN
Albuterol Nebs [Ventolin Nebules] 2.5 mg INH R Q4HPRN PRN
Dextrose 50%-Water [Dextrose 50% Syringe] 12.5 grams IV [id number] PRN
Glucagon [GlucaGen] 1 mg IM PRN PRN
Ondansetron Injectable [Zofran] 4 mg IV Q6HPRN PRN
04/23/25 03:43
Consult Notification Routine
Specialty to Notify: Nephrology
Date consulting provider notified: 04/23/25
Time consulting provider notified: 08:28
Notified:: Provider
Comment: Dr. Madelaine childress texted
NEPHROLOGY CONSULT Routine
Consulting Provider: Nahid Sloan
Was physician already notified: No
Reason for consult: Hyponatremia
Activity As Directed
Activity Level: Ambulate
With Assistance
Bedside Glucose Monitoring As Directed
Frequency: AC&HS
Additional Instructions:: Change to q6h if pt on TPN, tube feeding or not eating
EKG with chest pain [ECG as needed] As Directed
ECG as needed for:: Chest Pain
I/O [Intake/ Output] As Directed
Frequency: Per unit guidelines
Precautions As Directed
Type of Precautions: Aspiration
Vital Signs As Directed
Frequency: Per unit guidelines
Weight As Directed
Frequency: Daily
Incentive Spirometry [Rx Incentive Spirometry] [RESP] Routine
Frequency: q1h while awake
Oxygen Therapy [O2 Therapy] [RESP] Routine
Titrate/Wean O2 to maintain O2 sat greater than (%): 94
Ot Eval And Treat Routine
PT Consult [Pt Eval And Treat] Routine
Activity Level: Ambulate
With Assistance
Speech Therapy Eval & Treat Routine
DX Deep Vein Thrombosis Video Routine
04/23/25 Breakfast
2000 calorie (17 carb) Diabetic
At Your Request: Full Participation
Fluid Restriction: 1200 mL/day (40 oz)
Levothyroxine [Synthroid] 25 mcg PO DAILY @ 0600
04/23/25 07:08
ACTH [Adrenocorticotropic Hormone] [S] Routine
Basic Metabolic Panel IN AM
Complete Blood Count/No Diff IN AM
Cortisol, Random Routine
Magnesium IN AM
TSH Reflex To Free T4 Routine
04/23/25 07:30
Insulin Aspart Corrective Low [Novolog Flexpen-Low Resistance] See Protocol SC AC
04/23/25 08:00
Furosemide [Lasix] 40 mg IV DAILY
Hydrocortisone Sod Succinate [Solu-Cortef] 25 mg IV Q12
Latanoprost [Xalatan Ophthalmic Solution] 1 drop BOTH EYES DAILY
Losartan [Cozaar] 50 mg PO DAILY
Metoprolol [Lopressor] 50 mg PO BID
Pantoprazole [Protonix] 40 mg PO DAILY
Potassium Chloride [KCl] 20 meq PO DAILY
Sitagliptin Phosphate [Januvia] 100 mg PO DAILY
varenicline tartrate [Tyrvaya] See Dose Instructions NASAL BID
04/23/25 18:00
Atorvastatin [Lipitor] 10 mg PO QPM
Enoxaparin Sodium [Lovenox] 40 mg SC QPM
04/26/25 11:00
DC Protocol for Telemetry ONCE
Abnormal Lab Results
04/22/25 04/22/25
19:24 20:18
WBC 13.8 H 10^3/uL
(4.8-10.8)
RBC 4.15 L 10^6/uL
(4.20-5.40)
MCHC 32.0 L g/dL
(33.0-37.0)
Abs Immat Gran (auto) 0.1 H 10^3/uL
(0-0.05)
Absolute Neuts (auto) 10.6 H 10^3/uL
(1.4-6.5)
Absolute Monos (auto) 1.0 H 10^3/uL
(0.1-0.6)
Neutrophils % 77.0 H %
(42.2-75.2)
Lymphocytes % 11.2 L %
(20.5-51.1)
Sodium 127 L mmol/L
(135-145)
Chloride 97 L mmol/L
(98-107)
Creatinine 0.5 L mg/dL
(0.6-1.0)
Glucose 130 H mg/dl
(70-99)
Total Protein 5.5 L g/dl
(6.3-8.2)
Ur Occult Blood Reflex 1+ A
(Negative)
Urine Sodium 116 H mmol/L
(30-90)
04/22/25 19:24
04/22/25 19:24
Vital Signs
Initial and Last Documented VS:
Initial Vital Signs
Temp Pulse Resp BP Pulse Ox
98.7 F 73 16 166/69 94
04/22/25 19:14 04/22/25 19:14 04/22/25 19:14 04/22/25 19:14 04/22/25 19:14
Last Documented Vital Signs
Temp Pulse Resp BP Pulse Ox
97.9 F 68 16 136/73 93
04/24/25 07:00 04/24/25 08:34 04/24/25 07:00 04/24/25 08:34 04/24/25 07:00
*Pulse Oximetry
SaO2: 94
Oxygen Mode of Delivery: Room air
Patient hypoxic: yes
*Critical Care Note
Total Time (30-74mins, 75-104mins- exclusive of procedures): Not Applicable
Update Note
Update Note:
Patient presents to the Emergency Department with persistent nausea associated with 'dry heaves' today.
Number and Complexity of Problems Addressed at the Encounter
� Chronic conditions affecting care:
� Acute Exacerbation and/or Progression of Chronic Illness:
� Differential Diagnosis includes: But not limited to medication reaction, gastroenteritis, bowel obstruction, pancreatitis, sepsis, pneumonia, etc. etc.
Amount and/or Complexity of Data to be Reviewed and Analyzed
� I performed an independent evaluation of and my interpretation is:
EKG: Read by me, normal sinus rhythm, normal rate, normal axis, no acute ischemia
CT:
Xrays:
Laboratory Studies: Worsening of previous hyponatremia at 127, nonspecific leukocytosis without associated fever or focal source of infection, normal lactic acid, COVID and flu negative
Other:
� Review of other/old records reveals: Discharge summary from her most recent hospitalization reviewed, at which time there is discussion regarding doxycycline induced nausea.
� Clinical information was obtained by an independent historian:
� Prescriptions/Medications Considered but not given:
� Further testing considered but not performed:
Risk of Complications and/or Morbidity or Mortality of Patient Management
� Social determinants of health affecting care:
� Discussion with other providers (PCP, Hospitalists, Consultants, etc):
� Escalation of care including admission/observation vs risk of discharge considered: Given hypoxia noted here, chest x-ray was obtained which shows the possibility of a left lower lobe pneumonia. Given recent hospitalization,
immobilization, etc. further investigation with CT of the chest. No PE noted. In addition, patient has been on antibiotics for some time. No specific pneumonia noted on chest CT. For this reason, we will hold off on further antibiotics.
However, given patient's hypoxia as well as associated nausea and dry heaves and worsening new moderate hyponatremia, patient will be admitted, slow correction of hyponatremia, consider pulmonary evaluation in AM. Discussed with Dr. Sevilla
ED Attending Note
-
Portions of this chart may have been created with voice recognition software.� Occasional wrong word or��sound alike� substitutions may have occurred due to the inherent limitations of voice recognition software.
Discharge Plan
Departure
Patient Disposition: Admit
Date of Disposition: 04/23/25
Time of Disposition: 00:16
Admit to: Telemetry
Presentation/result/management discussed w/ accepting MD/DO: Hospitalist
Condition: Fair
Discharge Problem:
Acute hyponatremia, Hypoxia
Interventions
Interventions:
*Risk Screen - Suicide Last Done: 04/22/25 19:14
*General Assessment Last Done: 04/22/25 19:14
*Neglect/Abuse Screening Last Done: 04/22/25 19:14
*ED- Fall Risk Assessment Last Done: 04/23/25 03:40
*ED COVID-19 Vaccine History Last Done: 04/22/25 19:14
*Nursing Disposition Last Done: 04/23/25 03:41
SB-[id number]-Noqgkclees Assessment Last Done: 04/22/25 19:37
Discharge Date and Time
Discharge Date/Time: 04/23/25 03:41
[2025-04-22 19:59] LABS: ALT (SGPT) 13 U/L (0-35); AST (SGOT) 19 U/L (14-36); Albumin 3.5 g/dl (3.5-5.0); Alkaline Phosphatase 61 U/L (38-126); Blood Urea Nitrogen 10 mg/dl (7-17); Calcium 8.6 mg/dl (8.4-10.2); Carbon Dioxide 26 mmol/L (22-30); Chloride 97 mmol/L (98-107); Estimated Creatinine Clearance 82 ml/min; Glucose 130 mg/dl (70-99); Lipase 39 U/L (23-300); Potassium 4.3 mmol/L (3.5-5.1); Sodium 127 mmol/L (135-145); Total Protein 5.5 g/dl (6.3-8.2); eGFR > 60.00
[2025-04-22 20:00] VITALS: BP 163/75
[2025-04-22 20:11] LABS: Troponin I 0.016 ng/ml
[2025-04-22] MEDS: ZOFRAN 4 MG IV (20:12)
[2025-04-22 20:25] LABS: Urine Character Clear (Clear)
[2025-04-22 20:32] LABS: Urine Squamous Cell None seen /LPF (Few)
[2025-04-22 20:33] LABS: Urine Red Blood Cell 0-2 /HPF (0-2)
[2025-04-22 21:00] VITALS: BP 161/79
[2025-04-22 22:12] VITALS: BP 157/78
[2025-04-23] VITALS (8 sets, daily range): BP systolic 103–154; BP diastolic 48–87; PULSE 79–85; O2SAT 92; BMI 31.5
--- NOTE | 2025-04-23 02:34 | HPS.HSE ---
Family Physician
-
Family Physician: NOT KNOW UNKNOWN - PT DOES
Chief Complaint
-
Nausea
History of Present Illness
Patient is an 79y F with PMH significant for RA / PMR, chronic steroid use, DM-II and recent hospitalization for sepsis and L olecranon bursitis who presents to ED complaining of persistent nausea. Patient was admitted here 04/08 - 04/14 for
septic bursitis / septic shock. She underwent I&D of the L olecranon bursa on 04/08 - cultures from which eventually revealed MRSA. Patient was treated with vancomycin and transitioned to oral doxycycline. Unfortunately, she developed nausea and
this was changed to Linezolid. Patient states that her nausea has not improved since that time, despite the change in abx. She has had persistent nausea with occasional episodes of non-bloody emesis or 'dry heaves'. She states that she has been
eating / drinking fairly well despite these complaints. She denies any abdominal pain. No fevers / chills.
She states that she has been able to take and tolerate all of her usual medications without issue - including her chronic methylprednisolone dose.
Her L elbow appears to be healing well.
She does note some LE edema increased from prior.
She has Lasix at home that she takes 'as needed' and estimates that she takes it about twice per week. She is not certain when her last dose was.
Patient presented to the ED this evening for evaluation of her persistent nausea.
Medical History
Past Medical History
Past Medical History: Reports Other
Additional Past Medical History:
Rheumatoid Arthritis / PMR
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
Chronic HFpEF
Hypertension
DM-II
GERD
ARIANA
Hypokalemia
Hypothyroidism
Obesity
Recurrent UTI
Past Surgical History: Reports Other
Additional Past Surgical History:
Left Olecranon Bursa I&D (04/08/25)
Bilateral TKA
Left TKA Revision
T&A
Ex Lap / MIRTA
KESHA / LSO
Cholecystectomy
Lumbar Laminectomy / Fusion
Ankle Fusion
Social History
Tobacco: Non-smoker
Alcohol: None
Drug: None
Family History
Family History: Not pertinent
Allergies / Home Medications
Allergies reflects when Allergies were last updated in [facility].
Home Medications with original date entered in [facility]
Allergy/Medication List:
Allergies
Allergy/AdvReac Type Severity Reaction Status Date / Time
bee venom protein (honey bee) Allergy Shortness Verified 09/02/24 17:25
of Breath
ciprofloxacin (From Cipro) Allergy Unknown Verified 09/02/24 17:25
glycine (From Gamunex) Allergy Hives Verified 09/02/24 17:25
immune globulin,alpha (IgA) Allergy Hives Verified 09/02/24 17:25
greater than 50 mcg/mL (From
Gamunex)
immune globulin,gamma (IgG) Allergy Hives Verified 09/02/24 17:25
human (From Gamunex)
lisinopril Allergy cough Verified 09/02/24 17:25
meperidine (From Demerol) Allergy Nausea Verified 09/02/24 17:25
nitrofurantoin (From Allergy SEE BELOW Verified 09/02/24 17:25
Macrobid)
prochlorperazine edisylate Allergy agitation Verified 09/02/24 17:25
(From Compazine)
Sulfa (Sulfonamide Allergy Hives Verified 09/02/24 17:25
Antibiotics)
Home Medications
simvastatin 10 mg tablet (Zocor) 10 mg PO QPM High cholesterol 02/13/08
levothyroxine 25 mcg tablet 25 mcg PO DAILY Thyroid 05/30/20
pantoprazole 40 mg tablet,delayed release (Protonix) 40 mg PO BID Gastrointestinal Issue 12/30/22
calcium citrate 250 mg PO DAILY Supplement 06/24/23
latanoprost 0.005 % eye drops 1 drp BOTH EYES DAILY Eye Condition 06/24/23
magnesium oxide 400 mg PO QPM Electrolyte Repletion 06/24/23
losartan 50 mg tablet 50 mg PO DAILY Blood pressure #0 tabs 09/04/24
acetaminophen 650 mg tablet,extended release 650 mg PO Q8HPRN PRN mild pain 04/08/25
cholecalciferol (vitamin D3) 25 mcg (1,000 unit) tablet 25 mcg PO DAILY Supplement 04/08/25
estradiol 0.01% (0.1 mg/gram) vaginal cream 1 appful vaginal MOTH Hormonal Agent 04/08/25
guaifenesin 600 mg tablet, extended release 12 hr 600 mg PO DAILY Cough 04/08/25
methylprednisolone 8 mg tablet 8 mg PO DAILY Anti-Inflammatory 04/08/25
sitagliptin phosphate 100 mg tablet (Januvia) 100 mg PO DAILY Diabetes 04/08/25
varenicline tartrate 0.03 mg/spray metered nasal spray (Tyrvaya) 1 spray intranasal BID DRY EYE DISEASE 04/08/25
acetaminophen 325 mg tablet 650 mg (2 x 325 mg) PO Q4HPRN PRN pain #30 tabs 04/12/25
metoprolol tartrate 50 mg tablet 50 mg PO BID 30 days #60 tabs 04/12/25
lactobacillus combination no.4 3 billion cell capsule (Probiotic) 3,000 mmu cells PO DAILY #30 caps 04/14/25
furosemide 20 mg tablet 20 mg PO DAILYPRN PRN Edema 04/23/25
Review of Systems
-
History Source: Patient
A 12 point ROS was completed and negative except as noted: Yes
Constitutional: Reports Fatigue; Denies Fever or Chills
EENT: Denies Sore Throat
Respiratory: Reports Cough; Denies Hemoptysis or Trouble Breathing
Cardiac: Denies Chest Pain or Palpitations
Abdomen/GI: Reports Nausea and Vomiting; Denies Abdominal Pain, Diarrhea, Constipated, Bloody Stools, Black Stools or Anorexia
: Denies Dysuria, Frequency or Flank Pain
Musculoskeletal: Reports Joint Pain and Edema
Neurological: Reports Dizzy; Denies Headache
Psych: Denies Depression or Anxiety
Physical Exam
Vital Signs
Vital Signs
Temp Pulse Resp BP Pulse Ox
98.7 F 72 18 157/78 96
04/22/25 19:14 04/23/25 01:30 04/23/25 01:30 04/22/25 22:12 04/23/25 01:30
Physical Exam
General: Other (79y F in no acute distress.)
HEENT: Moist mucous membranes, PERRLA and Other (Neck supple.)
Respiratory: Other (Decreased at bases - otherwise clear.)
Cardiac: S1/S2, Regular Rhythm and Murmur (II/ REINA)
GI: Soft, Non Tender, Non Distended and Normal Bowel Sounds
Musculoskeletal: No Clubbing, No Cyanosis and Other (1+ pitting edema b/l LEs.)
Skin: Other (L elbow with sutures in place. Minimal surrounding erythema. No induration / tenderness. No bleeding or discharge.)
Neuro: AO x 3
Laboratory Results
-
04/22/25 19:24
04/22/25 19:24
Laboratory Results
Lactic Acid Cancelled 04/22/25 23:30
Total Bilirubin 1.1 mg/dl (0.2-1.3) 04/22/25 19:24
AST 19 U/L (14-36) 04/22/25 19:24
ALT 13 U/L (0-35) 04/22/25 19:24
Alkaline Phosphatase 61 U/L (38-126) 04/22/25 19:24
Troponin I 0.016 ng/ml 04/22/25 19:24
Lipase 39 U/L (23-300) 04/22/25 19:24
Impression/Plan
-
A/P: Patient is an 79y F with PMH significant for CHF, DM-II and recent septic bursitis who presents to ED complaining of persistent nausea.
Intractable Nausea
- Admit for further evaluation and treatment.
- ? secondary to enteric antibiotics (doxycycline and then Linezolid).
- Has completed course (through 04/22) and will remain off of further abx for now.
- Supportive care with antiemetics. Continue PPI.
- Follow for improvement in symptoms.
- ? GI eval / endoscopic examination if symptoms persist.
Hyponatremia
- Na = 127 - similar to prior admission.
- Patient with multiple potential etiologies of hyponatremia.
- Has LE edema, weight gain and new hypoxemia suggestive of hypervolemia (see below).
- Has chronic steroid dependence and elevated urine sodium suggestive of relative adrenal insufficiency (see below).
- Persistent nausea x weeks as stimulus for ADH release.
- Despite nausea - patient denies frequent emesis and states she has been eating / drinking well. Hypovolemia seems less likely.
- Address above individual issues.
- Fluid restriction.
- Follow for improvement in Na levels.
- Nephrology evaluation for additional recommendations.
Acute on Chronic HFpEF
Acute Hypoxemic Respiratory Insufficiency secondary to the above
- Small bilateral pleural effusions, new hypoxemia, increased extremity edema.
- Trial of daily IV Lasix for now and follow I/Os, daily weights, etc.
- Follow Na levels for improvement.
- Echo done earlier this month with normal EF and mild valvular disease.
Rheumatoid Arthritis / PMR
Chronic Steroid Dependence
Iatrogenic Adrenal Insufficiency
- Na levels improved last admission with stress dose steroids and began to decrease towards discharge as steroid was lowered.
- Urine studies today include elevated urine Na suggestive of adrenal insufficiency (though it is not clear when patient last took PRN Lasix).
- Change steroid to hydrocortisone 25mg BID for now and follow for any improvement / clinical changes.
- Cortisol / ACTH prior to AM dose of hydrocortisone.
- Slow taper back to usual home dose (8mg methylprednisolone or 40mg hydrocortisone daily).
Hypothyroidism
- Update TFTs and adjust T4 replacement dose if indicated.
MRSA Bursitis of Left Olecranon Bursa
- Improving / improved. Afebrile and no evidence of active infection at elbow / surgical site.
- Hold any further abx as noted above. Completed originally planned course (through 04/22).
- PT / OT evaluations.
- Follow-up with Ortho as planned (scheduled for suture removal on Wednesday).
Benign Hypertension
- Stable. Continue usual home med regimen with holding parameters.
DM-II
- Stable. Continue Januvia.
- Follow glucose and cover with SSI as needed.
- A1C was 7.3% during recent hospital stay.
GERD
- Stable. Continue PPI.
ARIANA on CPAP
- Stable. Continue nightly PAP therapy.
Obesity due to excess calories
- Affects all aspects of care.
- Encourage healthy diet and increased exercise with goal of weight loss.
DVT Prophylaxis: Lovenox
Code Status: DNR
[2025-04-23] MEDS: SYNTHROID 25 MCG PO (04:16)
[2025-04-23] MEDS: ZOFRAN 4 MG IV ×2 (04:24→10:41)
[2025-04-23 07:53] LABS: Glucose - Point of Care 91 mg/dl (70-99)
[2025-04-23 08:03] LABS: Hematocrit 36.2 % (37.0-47.0); Hemoglobin 11.2 g/dL (12.0-16.0); Mean Corp Hgb Conc. 30.9 g/dL (33.0-37.0); Mean Corpuscular Volume 92.8 fL (81.0-99.0); Platelet Count 261 10^3/uL (130-400); Red Cell Dist. Width 13.6 % (11.5-14.5)
[2025-04-23] MEDS: NOVOLOG FLEXPEN-LOW RESISTANCE SC ×3 (08:15→16:59)
--- NOTE | 2025-04-23 08:38 | VNURNOTE ---
Chart reviewed. Patient is current with [facility]. Will continue to follow hospital course and DC plans.
[2025-04-23 08:45] LABS: Blood Urea Nitrogen 8 mg/dl (7-17); Calcium 8.3 mg/dl (8.4-10.2); Carbon Dioxide 27 mmol/L (22-30); Chloride 98 mmol/L (98-107); Estimated Creatinine Clearance 81 ml/min; Glucose 88 mg/dl (70-99); Magnesium 1.9 mg/dl (1.6-2.3); Potassium 3.7 mmol/L (3.5-5.1); Sodium 129 mmol/L (135-145); eGFR > 60.00
[2025-04-23] MEDS: COZAAR 50 MG PO (09:00)
[2025-04-23] MEDS: PROTONIX 40 MG PO (09:01)
[2025-04-23] MEDS: KCL 20 MEQ PO (09:02)
[2025-04-23] MEDS: LOPRESSOR 50 MG PO ×2 (09:02→20:28)
[2025-04-23] MEDS: JANUVIA 100 MG PO (09:03)
[2025-04-23] MEDS: SOLU-CORTEF 25 MG IV ×2 (09:03→20:27)
[2025-04-23] MEDS: XALATAN OPHTHALMIC SOLUTION 1 DROP BOTH EYES (09:04)
[2025-04-23] MEDS: LASIX 40 MG IV (09:05)
[2025-04-23 09:06] LABS: Cortisol, Random 4.2 ug/dl
--- NOTE | 2025-04-23 09:07 | W.CON.NEPH ---
Consultation
-
Date/Time Consultation Requested: 04/23/2025 7 AM
Date/Time Consultation Performed: 04/23/2025 8 AM
Requesting Provider: Dr. Sevilla
Performing Provider: Dr. Burkett
Reason for Consultation: Hyponatremia
Medical History
-
Chief Complaint: Intractable nausea
History of Present Illness:
This is an 79-year-old female who has diabetes mellitus type 2 controlled with oral medications, hyperlipidemia controlled statin therapy, heart failure preserved ejection fraction on as needed diuretic therapy but with fluid restriction of 62
ounces per day which she follows. She recently had been in the hospital with septic bursitis with MRSA and required antibiotics. Unfortunately these antibiotics had caused significant nausea. She had transition from vancomycin to doxycycline and
then to in the linezolid. She ultimately finished the course but remains significantly nauseous. She did not have intractable vomiting. Oral intake has actually been fairly stable overall otherwise. She has had no issues with her medications.
She does have chronic lower extremity edema and takes Lasix as needed. Her weights have been stable since her last discharge at home. On admission she was noted to have a sodium level 127.
Past Medical History
Rheumatoid Arthritis / PMR
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
Chronic HFpEF
Hypertension
DM-II
GERD
ARIANA
Hypokalemia
Hypothyroidism
Obesity
Recurrent UTI
Left Olecranon Bursa I&D (04/08/25)
Bilateral TKA
Left TKA Revision
T&A
Ex Lap / MIRTA
KESHA / LSO
Cholecystectomy
Lumbar Laminectomy / Fusion
Ankle Fusion
Social History
Tobacco: Non-Smoker
Alcohol: None
Family History
Family History: Not Pertinent
Allergies / Home Medications
Allergy/AdvReac Type Severity Reaction Status Date / Time
bee venom protein (honey bee) Allergy Shortness Verified 09/02/24 17:25
of Breath
ciprofloxacin (From Cipro) Allergy Unknown Verified 09/02/24 17:25
glycine (From Gamunex) Allergy Hives Verified 09/02/24 17:25
immune globulin,alpha (IgA) Allergy Hives Verified 09/02/24 17:25
greater than 50 mcg/mL (From
Gamunex)
immune globulin,gamma (IgG) Allergy Hives Verified 09/02/24 17:25
human (From Gamunex)
lisinopril Allergy cough Verified 09/02/24 17:25
meperidine (From Demerol) Allergy Nausea Verified 09/02/24 17:25
nitrofurantoin (From Allergy SEE BELOW Verified 09/02/24 17:25
Macrobid)
prochlorperazine edisylate Allergy agitation Verified 09/02/24 17:25
(From Compazine)
Sulfa (Sulfonamide Allergy Hives Verified 09/02/24 17:25
Antibiotics)
�Medication �Instructions �Recorded �Confirmed �Type
simvastatin 10 mg tablet (Zocor) 10 mg PO QPM High cholesterol 02/13/08 04/23/25 History
levothyroxine 25 mcg tablet 25 mcg PO DAILY Thyroid 05/30/20 04/23/25 History
pantoprazole 40 mg tablet,delayed 40 mg PO BID Gastrointestinal Issue 12/30/22 04/23/25 History
release (Protonix)
calcium citrate 250 mg PO DAILY Supplement 06/24/23 04/23/25 History
latanoprost 0.005 % eye drops 1 drp BOTH EYES DAILY Eye Condition 06/24/23 04/23/25 History
magnesium oxide 400 mg PO QPM Electrolyte Repletion 06/24/23 04/23/25 History
losartan 50 mg tablet 50 mg PO DAILY Blood pressure #0 09/04/24 04/23/25 Rx
tabs
acetaminophen 650 mg 650 mg PO Q8HPRN PRN mild pain 04/08/25 04/23/25 History
tablet,extended release
cholecalciferol (vitamin D3) 25 25 mcg PO DAILY Supplement 04/08/25 04/23/25 History
mcg (1,000 unit) tablet
estradiol 0.01% (0.1 mg/gram) 1 appful vaginal MOTH Hormonal 04/08/25 04/23/25 History
vaginal cream Agent
guaifenesin 600 mg tablet, 600 mg PO DAILY Cough 04/08/25 04/23/25 History
extended release 12 hr
methylprednisolone 8 mg tablet 8 mg PO DAILY Anti-Inflammatory 04/08/25 04/23/25 History
sitagliptin phosphate 100 mg 100 mg PO DAILY Diabetes 04/08/25 04/23/25 History
tablet (Januvia)
varenicline tartrate 0.03 mg/spray 1 spray intranasal BID DRY EYE 04/08/25 04/23/25 History
metered nasal spray (Tyrvaya) DISEASE
acetaminophen 325 mg tablet 650 mg (2 x 325 mg) PO Q4HPRN PRN 04/12/25 04/23/25 Rx
pain #30 tabs
metoprolol tartrate 50 mg tablet 50 mg PO BID 30 days #60 tabs 04/12/25 04/23/25 Rx
lactobacillus combination no.4 3 3,000 mmu cells PO DAILY #30 caps 04/14/25 04/23/25 Rx
billion cell capsule (Probiotic)
furosemide 20 mg tablet 20 mg PO DAILYPRN PRN Edema 04/23/25 04/23/25 History
Review of Systems
-
Nausea. No chest pain or shortness of breath
All other systems: Negative unless noted
Physical Exam
Vital Signs
Vital Signs
Temp Pulse Resp BP Pulse Ox
99.9 F 83 14 154/70 95
04/23/25 07:15 04/23/25 07:15 04/23/25 07:15 04/23/25 07:15 04/23/25 07:15
Lab Results
WBC 11.0 10^3/uL (4.8-10.8) H 04/23/25 07:08
RBC 3.90 10^6/uL (4.20-5.40) L 04/23/25 07:08
Hgb 11.2 g/dL (12.0-16.0) L 04/23/25 07:08
Hct 36.2 % (37.0-47.0) L 04/23/25 07:08
Plt Count 261 10^3/uL (130-400) 04/23/25 07:08
Sodium 129 mmol/L (135-145) L 04/23/25 07:08
Potassium 3.7 mmol/L (3.5-5.1) 04/23/25 07:08
Chloride 98 mmol/L (98-107) 04/23/25 07:08
Carbon Dioxide 27 mmol/L (22-30) 04/23/25 07:08
BUN 8 mg/dl (7-17) 04/23/25 07:08
Creatinine 0.5 mg/dL (0.6-1.0) L 04/23/25 07:08
eGFR > 60.00 04/23/25 07:08
Glucose 88 mg/dl (70-99) 04/23/25 07:08
Calcium 8.3 mg/dl (8.4-10.2) L 04/23/25 07:08
Albumin 3.5 g/dl (3.5-5.0) 04/22/25 19:24
Laboratory Tests
04/22/25
20:18
Urine Osmolality 487
Urine Sodium [address] chest PE protocol 04/22/2025
IMPRESSION:
1. No evidence of pulmonary embolism or thoracic aortic dissection.
2. Hazy bibasilar opacities, likely reflective of subsegmental atelectasis. Tiny bilateral pleural effusions.
3. Moderate coronary arterial calcification. Please correlate with symptoms of and risk factors for coronary artery disease, with further workup as clinically appropriate.
4. Nodular contour of the liver, which may be seen in the setting of cirrhosis.
Physical Exam
Patient is awake alert oriented and in no distress. Mood and affect were pleasant, insight and judgment were good. Pupils are equal round and reactive to light, extraocular movements are intact, sclera were anicteric. Hearing was normal, ears and
nose are intact. Oropharynx was clear. Neck was supple with trachea midline and no thyromegaly. Heart was regular rate and rhythm without rubs. Lower extremities with 1+ ankle edema. Lungs were with rhonchi to auscultation bilaterally and with
normal excursion. Abdomen was soft, nontender, with normal active bowel sounds, and no hepatosplenomegaly. Skin was without rash and with normal turgor.
Data Reviewed
-
Radiology: Image Personally Visualized and interpreted (Chest x-ray 04/22/2025 my reading no acute disease bilateral effusion)
CT Scan: Report Reviewed by me
Medical Tests (Nuc Med, Echo etc): Image Personally Visualized and interpreted (EKG 04/22/2025 by my reading normal sinus rhythm) and Report Reviewed by me (Echocardiogram 04/09/2025 ejection fraction normal, concentric LVH, moderate MR)
Labs: Labs Reviewed by me
Old Records: Reviewed
Assessment/Plan
-
Assessment
Intractable nausea
Hyponatremia
Diabetes mellitus type 2
Heart failure preserved ejection fraction
Rheumatoid arthritis, PMR, chronic steroids
Hypothyroidism
Recent MRSA status post antibiotics
Hypertension
Plan
Okay for Lasix
Samsca low-dose today
Fluid restriction 48 ounces
Follow BMP
[2025-04-23] MEDS: SAMSCA 7.5 MG PO (09:48)
--- NOTE | 2025-04-23 10:52 | PTOTSP ---
Speech Therapy Evaluation:
Pt presents with grossly functional oropharyngeal swallow at bedside. No overt s/sx of aspiration across trials. Subacute risk of dysphagia includes intubation during recent hospitalization with subsequent cough, however intubation was short in
duration (during elbow surgery). Pt without dysphagia hx and chest CT without evidence of pneumonia.
Recommend:
1. Cont. regular solids and thin liquids
2. Meds as tolerated
3. General aspiration and reflux precautions
4. RECONDITIONER to follow, likely brief
--- NOTE | 2025-04-23 11:32 | CON.CAR ---
Addendum entered and electronically signed by Mike Armstrong MD 04/23/25 15:12:
I saw and examined the patient.
The DOCK OPERATIONS SUPERVISOR's note was reviewed and I agree with the note.
Comment: 79-year-old female (known to Dr. Armstrong, her primary tile power shear operator), with chronic HFpEF, SVT, atrial tachycardia, hypertension, hypercholesterolemia, mild mitral stenosis, type 2 diabetes melitis, PMR, adrenal insufficiency
(steroid-dependent), and fibromyalgia presented to the emergency department with a chief complaint of intractable nausea.
She has hyponatremia and mild CHF.
- nephrology is following for hyponatremia agree with plan and diuretics
Original Note:
Consultation
Consultation Request
Date/Time Consultation Requested: 04/23/2025 11:20
Date/Time Consultation Performed: 04/23/2025 11:35
Requesting Provider: Dr. Moni Caceres
Performing Provider: NATALY Cortes for Dr. Armstrong
Reason for Consultation: Intractable nausea
Medical History
-
Chief Complaint: Acute on chronic HFpEF
History of Present Illness:
Lyubov Maddox (Betsy) is an 79-year-old female (known to Dr. Armstrong, her primary tile power shear operator), with chronic HFpEF, SVT, atrial tachycardia, hypertension, hypercholesterolemia, mild mitral stenosis, type 2 diabetes melitis, PMR, adrenal
insufficiency (steroid-dependent), and fibromyalgia presented to the emergency department with a chief complaint of intractable nausea. She had a recent admission from April 08 through with septic bursitis. She underwent I&D of the left bursa
04/08/2025. Cultures demonstrated MRSA. Her intravenous vancomycin was transition to oral doxycycline. She developed significant nausea and this was then changed to a linezolid. Her nausea has not improved and since got worse. She had several
episodes of emesis and dry heaves. Cardiology was consulted for acute on chronic HFpEF. Nephrology is following for hyponatremia. She currently takes her as needed furosemide about twice weekly. She does not recall the last time she took it. She
denies chest pain, shortness of breath, & dizziness.
Past Medical History
Past Medical History: Arrhythmias (SVT, atrial tachycardia), CHF, GERD, HTN, Hypercholesterolemia, Hypothyroidism, NIDDM, Valvular Disease (Mitral stenosis) and Other (RA, PMR, adrenal insufficiency)
Past Surgical History: Cholecystectomy, Gynecological and Orthopedic
Social History
Tobacco: Non-Smoker
Alcohol: None
Drug: None
Employment: Retired
Family History
Family History: Reviewed & Not Pertinent
Allergies / Home Medications
Allergy/AdvReac Type Severity Reaction Status Date / Time
bee venom protein (honey bee) Allergy Shortness Verified 09/02/24 17:25
of Breath
ciprofloxacin (From Cipro) Allergy Unknown Verified 09/02/24 17:25
glycine (From Gamunex) Allergy Hives Verified 09/02/24 17:25
immune globulin,alpha (IgA) Allergy Hives Verified 09/02/24 17:25
greater than 50 mcg/mL (From
Gamunex)
immune globulin,gamma (IgG) Allergy Hives Verified 09/02/24 17:25
human (From Gamunex)
lisinopril Allergy cough Verified 09/02/24 17:25
meperidine (From Demerol) Allergy Nausea Verified 09/02/24 17:25
nitrofurantoin (From Allergy SEE BELOW Verified 09/02/24 17:25
Macrobid)
prochlorperazine edisylate Allergy agitation Verified 09/02/24 17:25
(From Compazine)
Sulfa (Sulfonamide Allergy Hives Verified 09/02/24 17:25
Antibiotics)
�Medication �Instructions �Recorded �Confirmed �Type
simvastatin 10 mg tablet (Zocor) 10 mg PO QPM High cholesterol 02/13/08 04/23/25 History
levothyroxine 25 mcg tablet 25 mcg PO DAILY Thyroid 05/30/20 04/23/25 History
pantoprazole 40 mg tablet,delayed 40 mg PO BID Gastrointestinal Issue 12/30/22 04/23/25 History
release (Protonix)
calcium citrate 250 mg PO DAILY Supplement 06/24/23 04/23/25 History
latanoprost 0.005 % eye drops 1 drp BOTH EYES DAILY Eye Condition 06/24/23 04/23/25 History
magnesium oxide 400 mg PO QPM Electrolyte Repletion 06/24/23 04/23/25 History
losartan 50 mg tablet 50 mg PO DAILY Blood pressure #0 09/04/24 04/23/25 Rx
tabs
acetaminophen 650 mg 650 mg PO Q8HPRN PRN mild pain 04/08/25 04/23/25 History
tablet,extended release
cholecalciferol (vitamin D3) 25 25 mcg PO DAILY Supplement 04/08/25 04/23/25 History
mcg (1,000 unit) tablet
estradiol 0.01% (0.1 mg/gram) 1 appful vaginal MOTH Hormonal 04/08/25 04/23/25 History
vaginal cream Agent
guaifenesin 600 mg tablet, 600 mg PO DAILY Cough 04/08/25 04/23/25 History
extended release 12 hr
methylprednisolone 8 mg tablet 8 mg PO DAILY Anti-Inflammatory 04/08/25 04/23/25 History
sitagliptin phosphate 100 mg 100 mg PO DAILY Diabetes 04/08/25 04/23/25 History
tablet (Januvia)
varenicline tartrate 0.03 mg/spray 1 spray intranasal BID DRY EYE 04/08/25 04/23/25 History
metered nasal spray (Tyrvaya) DISEASE
acetaminophen 325 mg tablet 650 mg (2 x 325 mg) PO Q4HPRN PRN 04/12/25 04/23/25 Rx
pain #30 tabs
metoprolol tartrate 50 mg tablet 50 mg PO BID 30 days #60 tabs 04/12/25 04/23/25 Rx
lactobacillus combination no.4 3 3,000 mmu cells PO DAILY #30 caps 04/14/25 04/23/25 Rx
billion cell capsule (Probiotic)
furosemide 20 mg tablet 20 mg PO DAILYPRN PRN Edema 04/23/25 04/23/25 History
Review of Systems
-
History Source: Patient
All other systems: Negative unless noted
Constitutional: Fatigue
EENT: No Symptoms
Respiratory: No Symptoms
Cardiac: No Symptoms
Abdomen/GI: Nausea
: No Symptoms
Musculoskeletal: No Symptoms
Skin: No Symptoms
Neurological: No Symptoms
Endocrine: No Symptoms
Hematologic/Lymphatic: No Symptoms
Physical Exam
Vital Signs
Temp Pulse Resp BP Pulse Ox
99.9 F 83 14 154/70 95
04/23/25 07:15 04/23/25 09:00 04/23/25 07:15 04/23/25 09:00 04/23/25 07:15
Lab Results
04/23/25 07:08
04/23/25 07:08
Troponin I 0.016 ng/ml 04/22/25 19:24
Physical Exam
General: Well Developed and No Apparent Distress
HEENT: Normocephalic, Anicteric and Moist Mucous Membranes
Respiratory: Clear and Non Labored Respirations
Cardiac: S1/S2 and Regular Rhythm
Breast: Deferred by me
GI: Soft, Non Tender, Non Distended and Normal Bowel Sounds
Rectal: Deferred by Provider
Genito-urinary: No Costovertebral Tender
Musculoskeletal: No Clubbing, No Cyanosis and Edema (trace LE edema)
Skin: Warm and Dry
Neuro: AO x 3
Hematologic/Lymphatic: No Lymphadenopathy
Psych: Calm
Impression / Plan
-
I/P: 79F with chronic HFpEF, SVT, atrial tachycardia, hypertension, hypercholesterolemia, mild mitral stenosis, type 2 diabetes melitis, PMR, adrenal insufficiency (steroid-dependent), and fibromyalgia presented to the emergency department with a
chief complaint of intractable nausea. Card consult for acute on chronic HFpEF.
Outpatient tile power shear operator: Dr. Armstrong
Acute hypoxic respiratory sufficiency
- SPO2 94% on 2 L nasal cannula
- Diurese and wean as able
HFpEF, acute on chronic
- CXR with prominence of pulmonary vasculature, small bilateral pleural effusion, proBNP pending
- This is her lowest documented weight at this facility since 2022, may need to establish new dry weight
- Diuresis per nephrology in the setting of hyponatremia
- Furosemide was 20 mg as needed prior to arrival, will need standing dose at discharge, perhaps Wednesday/Wednesday/Wednesday
- She is not on SGLT2i due to UTIs, can consider MRA
Hyponatremia
- Being managed by nephrology, Samsca and furosemide today
Intractable nausea with associated vomiting, per primary service
Low-grade temp
- 99.9 this morning, follow-up 99.2
- Influenza negative, COVID-19 negative
Hypertension
- Stable, continue metoprolol and lisinopril
SVT, continue beta-lynnette
Coronary artery calcification on CT, no angina, can transition to higher intensity statin after her nausea resolves
Mitral stenosis, MG 4 mmHg, continue outpatient surveillance
NIDDM, HgbA1c 7.3%
PMR/RA
Adrenal insufficiency, steroid-dependent
Fibromyalgia
SUBJECTIVE:
As above.
DATA:
Transthoracic echocardiogram 04/09/2025:
Normal biventricular size and systolic function without regional wall motion
abnormality.
Mild concentric left ventricular hypertrophy.
Diastolic function is indeterminate.
Mild mitral stenosis, mean 4 mmHg.
Mild to moderate mitral regurgitation.
Aortic sclerosis without stenosis.
No significant change since the prior study of 09/04/2024.
Data Reviewed
-
EKG: Report Reviewed by me
Radiology: Report Reviewed by me
Medical Tests (Nuc Med, Echo etc): Report Reviewed by me
Labs: Labs Reviewed by me
Old Records: Reviewed
[2025-04-23 11:38] LABS: Glucose - Point of Care 145 mg/dl (70-99)
--- NOTE | 2025-04-23 12:26 | W.PN.HOSP.TC ---
Today's Communication/Plan
-
Follow Nephrology and Cardiology recs
continue Lasix/Samsca, wean O2
SNF planning
Assessment / Plan
Assessment / Plan
Assessment:
Intractable Nausea, no abdominal pain
- ? secondary to enteric antibiotics (doxycycline and then Linezolid).
- Has completed course (through 04/22) and will remain off of further abx for now.
- Supportive care with antiemetics. Continue PPI.
- Follow for improvement in symptoms.
acute Hyponatremia
- Na = 127 - similar to prior admission.
- Patient with multiple potential etiologies of hyponatremia.
- Has LE edema, weight gain and new hypoxemia suggestive of hypervolemia (see below).
- Has chronic steroid dependence and elevated urine sodium suggestive of relative adrenal insufficiency (see below).
- Persistent nausea x weeks as stimulus for ADH release.
- Despite nausea - patient denies frequent emesis and states she has been eating/drinking well. Hypovolemia seems less likely.
- Address above individual issues.
- Fluid restriction continues
- follow BMP
- Nephrology following; continuing Lasix. Samsca x 1.
Acute on Chronic HFpEF
Acute Hypoxemic Respiratory Insufficiency secondary to the above
- Small bilateral pleural effusions, new hypoxemia, increased extremity edema.
- Trial of daily IV Lasix for now and follow I/Os, daily weights, etc.
- Follow Na levels for improvement.
- Echo done earlier this month with normal EF and mild valvular disease.
- Cardiology consulted at family request.
Acute hypoxic respiratory insufficiency on 2L NC
- wean as able
Rheumatoid Arthritis/PMR
Chronic Steroid Dependence
Iatrogenic Adrenal Insufficiency
- Na levels improved last admission with stress dose steroids and began to decrease towards discharge as steroid was lowered.
- Urine studies with elevated urine Na suggestive of adrenal insufficiency (though it is not clear when patient last took PRN Lasix).
- Change steroid to hydrocortisone 25mg BID for now and follow for any improvement / clinical changes.
- AM Cortisol is low normal. spot ACTH is pending
- Slow taper back to usual home dose (8mg methylprednisolone or 40mg hydrocortisone daily).
Hypothyroidism
- TSH normal. continue T4 replacement dose
MRSA Bursitis of Left Olecranon Bursa
- Improving/improved. Afebrile and no evidence of active infection at elbow/surgical site.
- Hold any further abx as noted above. Completed originally planned course (through 04/22).
- PT/OT evaluations - SNF recommended
- Follow-up with Ortho as planned (scheduled for suture removal on Wednesday).
Benign Hypertension
- Stable. continue usual home med regimen with holding parameters.
DM-II
- Stable. continue Januvia.
- Follow glucose and cover with SSI as needed.
- A1C was 7.3% during recent hospital stay.
GERD
- Stable. Continue PPI.
ARIANA on CPAP
- Stable. Continue nightly PAP therapy.
Obesity due to excess calories
- Affects all aspects of care.
- Encourage healthy diet and increased exercise with goal of weight loss.
DVT Prophylaxis: Lovenox
Code Status: DNR/DNI
Anticipated Discharge: > 48 hours
Subjective/Interval History
-
Date of Service: April 23, 2025
reports mild nausea. no vomiting. No abd pain
denies SOB despite being on 2L NC
reports LE edema
Objective Data
-
Labs:
Laboratory Results
04/23/25
07:08
WBC 11.0 H
Hgb 11.2 L
Hct 36.2 L
Plt Count 261
Sodium 129 L
Potassium 3.7
Chloride 98
Carbon Dioxide 27
BUN 8
Creatinine 0.5 L
Glucose 88
Calcium 8.3 L
Vital Signs:
Vital Signs
Temp Pulse Resp BP Pulse Ox
99.2 F 67 16 120/58 94
04/23/25 11:30 04/23/25 11:30 04/23/25 11:30 04/23/25 11:30 04/23/25 11:30
I&O
04/22/25 04/23/25 04/24/25
06:59 06:59 06:59
Intake Total 420 / 420
Balance 420 / 420
Physical Exam
-
General: No Apparent Distress
HEENT: Normocephalic and Atraumatic
Respiratory: Decreased Breath Sounds
Cardiac: Regular Rhythm, S1/S2 and Murmur
GI: Soft and Nontender
Musculoskeletal: Edema, Right Lower Extrem, Edema, Left Lower Extrem and Other (L elbow sutures in place)
Neuro: AO x 3
Hematologic / Lymphatic: No Lymphadenopathy
Psych: Calm
Data Reviewed
-
Total Time Spent with Patient (in minutes): 45
Labs: Labs Reviewed by me
--- NOTE | 2025-04-23 12:50 | CM ---
Reviewed the chart notes and spoke with the patient and her [id number] at the bedside. The patient resides with her spouse in an independent apartment/cottage at [facility]. The patient has a rolling walker. The patient is current with [facility].
The patient has been to [facility] and is leaning toward discharging to [facility] prior to transitioning back to home. The [place] [facility] [place] continues to be available to patient/family and is
monitoring medical plan for needs at discharge.
Plan: Discharge plans will depend on the patient's progress.
[2025-04-23 16:42] LABS: Glucose - Point of Care 122 mg/dl (70-99)
[2025-04-23] MEDS: LIPITOR 10 MG PO (17:52)
[2025-04-23] MEDS: LOVENOX 40 MG SC (17:52)
[2025-04-23 22:46] LABS: Glucose - Point of Care 140 mg/dl (70-99)
[2025-04-24 03:10] VITALS: BP 130/69
--- NOTE | 2025-04-24 03:29 | PTCARENOTE ---
Pt incontinent x1 saturated bloody pad. C/O painful urination. House PULLMAN CAR CLERK made aware- STAT labs ordered. This RN will bladder scan towards end of shift to try and obtain urine sample. Plan reviewed with patient.
--- NOTE | 2025-04-24 03:29 | PTCARENOTE ---
Pt incontinent x1 saturated bloody pad. C/O painful urination. House SUPERVISOR DUMPING made aware- STAT labs ordered. This RN will bladder scan towards end of shift to try and get urine sample. Plan reviewed with patient.
--- NOTE | 2025-04-24 03:56 | W.PN.UPDATE ---
Update Note
Progress Note Update
RN reports patient with c/o of burning with urinating, RN noted blood colored urine in the incontinence pad, Bladder scan with 0. UA 04/22 noted. on Lovenox, will hold, labs to be done now. no other complaints.
[2025-04-24 04:40] LABS: Hematocrit 35.1 % (37.0-47.0); Hemoglobin 11.4 g/dL (12.0-16.0); Mean Corp Hgb Conc. 32.5 g/dL (33.0-37.0); Mean Corpuscular Volume 89.5 fL (81.0-99.0); Platelet Count 236 10^3/uL (130-400); Red Cell Dist. Width 13.5 % (11.5-14.5)
[2025-04-24 05:06] LABS: Blood Urea Nitrogen 13 mg/dl (7-17); Calcium 8.1 mg/dl (8.4-10.2); Carbon Dioxide 27 mmol/L (22-30); Chloride 98 mmol/L (98-107); Estimated Creatinine Clearance 69 ml/min; Glucose 130 mg/dl (70-99); Potassium 4.2 mmol/L (3.5-5.1); Sodium 130 mmol/L (135-145); eGFR > 60.00
[2025-04-24 05:37] VITALS: BMI 31.1
[2025-04-24] MEDS: SYNTHROID 25 MCG PO (05:48)
[2025-04-24 07:00] VITALS: BP 136/73
[2025-04-24 07:42] LABS: Glucose - Point of Care 119 mg/dl (70-99)
[2025-04-24] MEDS: NOVOLOG FLEXPEN-LOW RESISTANCE SC ×2 (08:29→17:48)
[2025-04-24] MEDS: SOLU-CORTEF 25 MG IV ×2 (08:34→20:30)
[2025-04-24] MEDS: LASIX 40 MG IV (08:34)
[2025-04-24] MEDS: PROTONIX 40 MG PO (08:34)
[2025-04-24] MEDS: JANUVIA 100 MG PO (08:35)
[2025-04-24] MEDS: XALATAN OPHTHALMIC SOLUTION 1 DROP BOTH EYES (08:35)
[2025-04-24] MEDS: COZAAR 50 MG PO (08:35)
[2025-04-24] MEDS: KCL 20 MEQ PO (08:35)
[2025-04-24] MEDS: LOPRESSOR 50 MG PO ×2 (08:35→20:29)
[2025-04-24 09:01] LABS: Urine Character Bloody (Clear)
--- NOTE | 2025-04-24 09:45 | CM ---
Reviewed the chart notes and spoke with the patient at the bedside. Patient continues with supplemental O2. Patient has a caregiver for one hour three times weekly for light chores and to assist with bathing. Per patient, she would be able to
increase times and duration if needed. CM continues to be available to patient/family and is monitoring medical plan for needs at discharge.
Plan: Discharge plans will depend on the patient's progress.
[2025-04-24 10:27] LABS: Urine Red Blood Cell >100 /HPF (0-2)
[2025-04-24 10:31] LABS: Urine White Cell 50-60 /HPF (0-5)
[2025-04-24 11:00] VITALS: BP 103/50
--- NOTE | 2025-04-24 11:06 | W.PN.CD ---
Today's Communication / Plan
-
Burning with urination is new
HF appears stable
Hyponatremia per nephrology
we will sign off please call with questions/concerns.
Impression / Plan
-
I/P: 79F with chronic HFpEF, SVT, atrial tachycardia, hypertension, hypercholesterolemia, mild mitral stenosis, type 2 diabetes melitis, PMR, adrenal insufficiency (steroid-dependent), and fibromyalgia presented to the emergency department with a
chief complaint of intractable nausea. Card consult for acute on chronic HFpEF.
Outpatient [employer] intern: Dr. Armstrong
Acute hypoxic respiratory sufficiency
- SPO2 94% on 2 L nasal cannula
- Diurese and wean as able
HFpEF, acute on chronic
- CXR with prominence of pulmonary vasculature, small bilateral pleural effusion, proBNP pending
- This is likley her new dry weight
- Diuresis per nephrology in the setting of hyponatremia
- Furosemide was 20 mg as needed prior to arrival, will need standing dose at discharge, recommend likely Wednesday/Wednesday/Wednesday
- She is not on SGLT2i due to UTIs, can consider MRA
Hyponatremia
- Being managed by nephrology, Samsca and furosemide today
Intractable nausea with associated vomiting, per primary service
Low-grade temp
- 99.9 this morning, follow-up 99.2
- Influenza negative, COVID-19 negative
Hypertension
- Stable, continue metoprolol and lisinopril
SVT, continue beta-lynnette
Coronary artery calcification on CT, no angina, can transition to higher intensity statin after her nausea resolves
Mitral stenosis, MG 4 mmHg, continue outpatient surveillance
NIDDM, HgbA1c 7.3%
PMR/RA
Adrenal insufficiency, steroid-dependent
Fibromyalgia
SUBJECTIVE:
Feeling well with no new CV complaints
She is having burning with urination
DATA:
Transthoracic echocardiogram 04/09/2025:
Normal biventricular size and systolic function without regional wall motion
abnormality.
Mild concentric left ventricular hypertrophy.
Diastolic function is indeterminate.
Mild mitral stenosis, mean 4 mmHg.
Mild to moderate mitral regurgitation.
Aortic sclerosis without stenosis.
No significant change since the prior study of 09/04/2024.
Physical Exam
Vital Signs/Labs
Vital Signs
Temp Pulse Resp BP Pulse Ox
97.9 F 68 16 136/73 93
04/24/25 07:00 04/24/25 08:34 04/24/25 07:00 04/24/25 08:34 04/24/25 07:00
04/23/25 04/24/25 04/25/25
06:59 06:59 06:59
Actual Weight 189 lb 187 lb
04/24/25 06:00
04/24/25 04:25
Magnesium 1.9 mg/dl (1.6-2.3) 04/23/25 07:08
04/23/25
11:54
Qrb-X-Skboxatknaw Pept 2390
LAB Results
04/22/25
19:24
Troponin I 0.016
Physical Exam
Constitutional: No acute distress
EENT: Anicteric
Cardiovascular: Rhythm & rate is regular and Pedal edema is absent
Respiratory: Respiratory effort normal and Lungs clear to auscul.
GI: Soft
Neuro/Psych: Alert and Oriented
Data Reviewed
-
Date of Service: April 24, 2025
Medical Decision Making: Reviewed Test Results
EKG: Tracing Personally Visualized and interpreted (sr)
Echo: Report Reviewed by me
Labs: Labs Reviewed by me
[2025-04-24 11:50] LABS: Glucose - Point of Care 256 mg/dl (70-99)
--- NOTE | 2025-04-24 12:22 | W.PN.NEPH.PH ---
Today's Communication / Plan
-
samsca
Assessment/Plan
-
Assessment
Intractable nausea
Hyponatremia
Diabetes mellitus type 2
Heart failure preserved ejection fraction
Rheumatoid arthritis, PMR, chronic steroids
Hypothyroidism
Recent MRSA status post antibiotics
Hypertension
Plan
Lasix 20mg po daily at discharge until Na normalizes
Samsca today
Fluid restriction 48 ounces until Na normalizes
Follow BMP
-
-
Date of Service: April 24, 2025
CC / HPI / ROS
-
Chief Complaint:
hyponatremia
History of Present Illness:
Na up to 130 with samsca
BP stable
improving PO
Review of Systems:
no nausea
no CP/SOB
Labs
-
Labs:
WBC Cancelled 04/24/25 06:00
RBC Cancelled 04/24/25 06:00
Hgb Cancelled 04/24/25 06:00
Hct Cancelled 04/24/25 06:00
Plt Count Cancelled 04/24/25 06:00
Sodium 130 mmol/L (135-145) L 04/24/25 04:25
Potassium 4.2 mmol/L (3.5-5.1) 04/24/25 04:25
Chloride 98 mmol/L (98-107) 04/24/25 04:25
Carbon Dioxide 27 mmol/L (22-30) 04/24/25 04:25
BUN 13 mg/dl (7-17) 04/24/25 04:25
Creatinine 0.7 mg/dL (0.6-1.0) 04/24/25 04:25
eGFR > 60.00 04/24/25 04:25
Glucose 130 mg/dl (70-99) H 04/24/25 04:25
Calcium 8.1 mg/dl (8.4-10.2) L 04/24/25 04:25
Ykr-N-Agqxhpeokpo Pept 2390 pg/ml 04/23/25 11:54
Albumin 3.5 g/dl (3.5-5.0) 04/22/25 19:24
Physical Exam
-
Vital Signs:
Vital Signs
Temp Pulse Resp BP Pulse Ox
98 F 65 16 103/50 96
04/24/25 11:00 04/24/25 11:00 04/24/25 11:00 04/24/25 11:00 04/24/25 11:00
Cardiovascular:: Regular rate and rhythm
Respiratory:: Bilateral: CTA
Lung Excursion:: Normal
Abdomen:: Nontender and Soft
Bowel Sounds:: Normal
Extremity Edema:: None: Bilateral:
[2025-04-24] MEDS: SAMSCA 15 MG PO (13:04)
[2025-04-24] MEDS: NOVOLOG FLEXPEN-LOW RESISTANCE 3 UNITS SC (13:04)
--- NOTE | 2025-04-24 13:13 | W.PN.HOSP.TC ---
Today's Communication/Plan
-
Start IV abx for UTI
continue Lasix/OFR/Samsca. Follow labs
Ortho consult for suture removal
Assessment / Plan
Assessment / Plan
Assessment:
Intractable Nausea, no abdominal pain
- ? secondary to enteric antibiotics (doxycycline and then Linezolid).
- Has completed course (through 04/22) and will remain off of further abx for now.
- Supportive care with antiemetics. Continue PPI.
- Follow for improvement in symptoms.
acute Hyponatremia
- Na = 127 - similar to prior admission.
- Patient with multiple potential etiologies of hyponatremia.
- Has LE edema, weight gain and new hypoxemia suggestive of hypervolemia (see below).
- Has chronic steroid dependence and elevated urine sodium suggestive of relative adrenal insufficiency (see below).
- Persistent nausea x weeks as stimulus for ADH release.
- Despite nausea - patient denies frequent emesis and states she has been eating/drinking well. Hypovolemia seems less likely.
- Address above individual issues.
- Fluid restriction continues
- follow BMP daily
- Nephrology following; continuing Lasix. Samsca x 2.
Acute on Chronic HFpEF
Acute Hypoxemic Respiratory Insufficiency secondary to the above
- Small bilateral pleural effusions, new hypoxemia, increased extremity edema.
- s/p IV Lasix course
- continue oral Lasix
- Echo done earlier this month with normal EF and mild valvular disease.
- Cardiology signed off
Acute hypoxic respiratory insufficiency on 2L NC
- wean as able
Acute UTI
- start Rocephin, day 1 pending urine culture
Rheumatoid Arthritis/PMR
Chronic Steroid Dependence
Iatrogenic Adrenal Insufficiency
- Na levels improved last admission with stress dose steroids and began to decrease towards discharge as steroid was lowered.
- Urine studies with elevated urine Na suggestive of adrenal insufficiency (though it is not clear when patient last took PRN Lasix).
- Change steroid to hydrocortisone 25mg BID for now and follow for any improvement / clinical changes.
- AM Cortisol is low normal. spot ACTH is pending
- Slow taper back to usual home dose (8mg methylprednisolone or 40mg hydrocortisone daily).
Hypothyroidism
- TSH normal. continue T4 replacement dose
MRSA Bursitis of Left Olecranon Bursa
- Improving/improved. Afebrile and no evidence of active infection at elbow/surgical site.
- Hold any further abx as noted above. Completed originally planned course (through 04/22).
- PT/OT evaluations - SNF recommended
- Ortho consulted as patient scheduled for suture removal on Wednesday
Benign Hypertension
- Stable. continue usual home med regimen with holding parameters.
DM-II
- Stable. continue Januvia.
- Follow glucose and cover with SSI as needed.
- A1C was 7.3% during recent hospital stay.
GERD
- Stable. Continue PPI.
ARIANA on CPAP
- Stable. Continue nightly PAP therapy.
Obesity due to excess calories
- Affects all aspects of care.
- Encourage healthy diet and increased exercise with goal of weight loss.
DVT Prophylaxis: Lovenox held for bloody urine. Consider resumption in 24 hours.
Code Status: DNR/DNI
Anticipated Discharge: > 48 hours
Subjective/Interval History
-
Date of Service: April 24, 2025
resting comfortably, no complaints
Objective Data
-
Labs:
Laboratory Results
04/24/25 04/24/25
04:25 06:00
WBC 9.5 Cancelled
Hgb 11.4 L Cancelled
Hct 35.1 L Cancelled
Plt Count 236 Cancelled
Sodium 130 L
Potassium 4.2
Chloride 98
Carbon Dioxide 27
BUN 13
Creatinine 0.7
Glucose 130 H
Calcium 8.1 L
Vital Signs:
Vital Signs
Temp Pulse Resp BP Pulse Ox
98 F 65 16 103/50 96
04/24/25 11:00 04/24/25 11:00 04/24/25 11:00 04/24/25 11:00 04/24/25 11:00
I&O
04/23/25 04/24/25 04/25/25
06:59 06:59 06:59
Intake Total 420 / 420 1520 / 1520
Balance 420 / 420 1520 / 1520
Physical Exam
-
General: No Apparent Distress
HEENT: Normocephalic and Atraumatic
Respiratory: Negative Wheezes
Cardiac: Regular Rhythm and S1/S2
GI: Soft
Genito-urinary: No Costovertebral Tender
Neuro: AO x 3
Psych: Calm
Data Reviewed
-
Total Time Spent with Patient (in minutes): 42
Labs: Labs Reviewed by me
[2025-04-24] MEDS: STERILE WATER FOR INJECTION 10 ML IV (14:35)
[2025-04-24] MEDS: ROCEPHIN 1000 MG IV (14:36)
[2025-04-24 15:00] VITALS: BP 131/76
[2025-04-24 16:53] LABS: Glucose - Point of Care 146 mg/dl (70-99)
[2025-04-24] MEDS: LIPITOR 10 MG PO (17:48)
[2025-04-24 20:03] VITALS: BP 124/62
[2025-04-24 21:10] LABS: Glucose - Point of Care 116 mg/dl (70-99)
[2025-04-24] MEDS: TYLENOL 650 MG PO (22:20)
[2025-04-24 23:17] VITALS: BP 124/60
[2025-04-25 03:11] VITALS: BP 177/8
[2025-04-25 06:00] VITALS: BMI 30.8
[2025-04-25] MEDS: SYNTHROID 25 MCG PO (06:40)
[2025-04-25 07:05] VITALS: BP 152/73
--- NOTE | 2025-04-25 07:43 | W.PN.UPDATE ---
Update Note
Progress Note Update
Status post left elbow irrigation and debridement April 08, [address] Ruiz. Intraoperative cultures grew MRSA infection. She did complete course of linezolid. She was readmitted for hyponatremia. Afebrile this morning. Left elbow incision
is clean, dry and intact. No fluid accumulation within the olecranon bursa but it is boggy. No warmth or erythema noted. Incision was cleaned with alcohol then sutures removed. Light dressing was applied. Elbow range of motion full without
pain. Distal neurovascular was intact. Clean incision with warm soapy water and light dressing until any bleeding stops. Any concerns for infection return to office immediately. Follow-up as needed.
[2025-04-25 07:52] LABS: Glucose - Point of Care 112 mg/dl (70-99)
[2025-04-25 08:15] LABS: Hematocrit 34.3 % (37.0-47.0); Hemoglobin 10.5 g/dL (12.0-16.0); Mean Corp Hgb Conc. 30.6 g/dL (33.0-37.0); Mean Corpuscular Volume 92.7 fL (81.0-99.0); Platelet Count 253 10^3/uL (130-400); Red Cell Dist. Width 13.4 % (11.5-14.5)
[2025-04-25] MEDS: NOVOLOG FLEXPEN-LOW RESISTANCE SC ×2 (08:45→17:06)
[2025-04-25] MEDS: LOPRESSOR 50 MG PO ×2 (08:46→20:16)
[2025-04-25] MEDS: PROTONIX 40 MG PO (08:46)
[2025-04-25] MEDS: COZAAR 50 MG PO (08:46)
[2025-04-25] MEDS: SOLU-CORTEF 25 MG IV ×2 (08:47→20:15)
[2025-04-25] MEDS: KCL 20 MEQ PO (08:47)
[2025-04-25] MEDS: LASIX 40 MG IV (08:47)
[2025-04-25] MEDS: JANUVIA 100 MG PO (08:47)
[2025-04-25] MEDS: XALATAN OPHTHALMIC SOLUTION 1 DROP BOTH EYES (08:51)
[2025-04-25 09:00] LABS: Blood Urea Nitrogen 11 mg/dl (7-17); Calcium 8.1 mg/dl (8.4-10.2); Carbon Dioxide 31 mmol/L (22-30); Chloride 101 mmol/L (98-107); Estimated Creatinine Clearance 80 ml/min; Glucose 105 mg/dl (70-99); Potassium 3.7 mmol/L (3.5-5.1); Sodium 135 mmol/L (135-145); eGFR > 60.00
--- NOTE | 2025-04-25 09:33 | W.PN.NEPH.PH ---
Today's Communication / Plan
-
DC Lasix
Signed off
Assessment/Plan
-
Assessment
Intractable nausea
Hyponatremia
Diabetes mellitus type 2
Heart failure preserved ejection fraction
Rheumatoid arthritis, PMR, chronic steroids
Hypothyroidism
Recent MRSA status post antibiotics
Hypertension
Plan
Sodium normal
Okay to discontinue Lasix
Will sign off
-
-
Date of Service: April 25, 2025
CC / HPI / ROS
-
Chief Complaint:
hyponatremia
History of Present Illness:
Na normalized
BP stable
improving PO
Review of Systems:
no nausea
no CP/SOB
Labs
-
Labs:
WBC 11.1 10^3/uL (4.8-10.8) H 04/25/25 07:42
RBC 3.70 10^6/uL (4.20-5.40) L 04/25/25 07:42
Hgb 10.5 g/dL (12.0-16.0) L 04/25/25 07:42
Hct 34.3 % (37.0-47.0) L 04/25/25 07:42
Plt Count 253 10^3/uL (130-400) 04/25/25 07:42
Sodium 135 mmol/L (135-145) 04/25/25 07:42
Potassium 3.7 mmol/L (3.5-5.1) 04/25/25 07:42
Chloride 101 mmol/L (98-107) 04/25/25 07:42
Carbon Dioxide 31 mmol/L (22-30) H 04/25/25 07:42
BUN 11 mg/dl (7-17) 04/25/25 07:42
Creatinine 0.5 mg/dL (0.6-1.0) L 04/25/25 07:42
eGFR > 60.00 04/25/25 07:42
Glucose 105 mg/dl (70-99) H 04/25/25 07:42
Calcium 8.1 mg/dl (8.4-10.2) L 04/25/25 07:42
Lvg-F-Wvqvuyfitjr Pept 2390 pg/ml 04/23/25 11:54
Albumin 3.5 g/dl (3.5-5.0) 04/22/25 19:24
Physical Exam
-
Vital Signs:
Vital Signs
Temp Pulse Resp BP Pulse Ox
98.2 F 75 16 152/73 99
04/25/25 07:05 04/25/25 08:47 04/25/25 07:05 04/25/25 08:47 04/25/25 07:05
Cardiovascular:: Regular rate and rhythm
Respiratory:: Bilateral: CTA
Lung Excursion:: Normal
Abdomen:: Nontender and Soft
Bowel Sounds:: Normal
Extremity Edema:: None: Bilateral:
[2025-04-25 11:00] VITALS: BP 118/59
[2025-04-25 11:27] LABS: Glucose - Point of Care 170 mg/dl (70-99)
[2025-04-25] MEDS: NOVOLOG FLEXPEN-LOW RESISTANCE 1 UNITS SC (11:40)
--- NOTE | 2025-04-25 12:06 | W.PN.HOSP.TC ---
Today's Communication/Plan
-
continue Abx pending cultures
Lasix per Renal/Cardiology; NA normalized
add compression therapy. Continue PT/OT
SNF planning
Assessment / Plan
Assessment / Plan
Assessment:
Intractable Nausea, no abdominal pain
- ? secondary to enteric antibiotics (doxycycline and then Linezolid).
- Has completed course (through 04/22) and will remain off of further abx for now.
- Supportive care with antiemetics. continue PPI.
- Follow for improvement in symptoms.
acute Hyponatremia
- Na = 127 - similar to prior admission.
- Patient with multiple potential etiologies of hyponatremia.
- Has LE edema, weight gain and new hypoxemia suggestive of hypervolemia (see below).
- Has chronic steroid dependence and elevated urine sodium suggestive of relative adrenal insufficiency (see below).
- Persistent nausea x weeks as stimulus for ADH release.
- Despite nausea - patient denies frequent emesis and states she has been eating/drinking well. Hypovolemia seems less likely.
- Address above individual issues.
- Fluid restriction continues
- follow BMP daily
- Nephrology following; s/p Samsca
Acute on Chronic HFpEF
Acute Hypoxemic Respiratory Insufficiency secondary to the above
- Small bilateral pleural effusions, new hypoxemia, increased extremity edema.
- s/p IV Lasix course
- continue oral Lasix M/W/F per Cardiology.
- Echo done earlier this month with normal EF and mild valvular disease.
- Cardiology signed off
Acute hypoxic respiratory insufficiency on 2L NC
- wean as able
Acute gram negative UTI
- continue Rocephin, day 2 pending urine culture
Rheumatoid Arthritis/PMR
Chronic Steroid Dependence
Iatrogenic Adrenal Insufficiency
- Na levels improved last admission with stress dose steroids and began to decrease towards discharge as steroid was lowered.
- Urine studies with elevated urine Na suggestive of adrenal insufficiency (though it is not clear when patient last took PRN Lasix).
- Change steroid to hydrocortisone 25mg BID for now and follow for any improvement / clinical changes.
- AM Cortisol is low normal. spot ACTH is pending
- Slow taper back to usual home dose (8mg methylprednisolone or 40mg hydrocortisone daily).
Hypothyroidism
- TSH normal. continue T4 replacement dose
MRSA Bursitis of Left Olecranon Bursa
- Improving/improved. Afebrile and no evidence of active infection at elbow/surgical site.
- Hold any further abx as noted above. Completed originally planned course (through 04/22).
- PT/OT evaluations - SNF recommended
- Ortho consulted and removed sutures 04/25/25.
Benign Hypertension
- Stable. continue usual home med regimen with holding parameters.
DM-II
- Stable. continue Januvia.
- Follow glucose and cover with SSI as needed.
- A1C was 7.3% during recent hospital stay.
GERD
- Stable. Continue PPI.
ARIANA on CPAP
- Stable. Continue nightly PAP therapy.
Obesity due to excess calories
- Affects all aspects of care.
- Encourage healthy diet and increased exercise with goal of weight loss.
DVT Prophylaxis: Lovenox held for bloody urine. Consider resumption in 24 hours.
Code Status: DNR/DNI
Anticipated Discharge: Within 24 hours
Subjective/Interval History
-
Date of Service: April 25, 2025
resting comfortably, no complaints at present
reports some lightheadedness earlier but states she has that at baseline
Objective Data
-
Labs:
Laboratory Results
04/25/25
07:42
WBC 11.1 H
Hgb 10.5 L
Hct 34.3 L
Plt Count 253
Sodium 135
Potassium 3.7
Chloride 101
Carbon Dioxide 31 H
BUN 11
Creatinine 0.5 L
Glucose 105 H
Calcium 8.1 L
Vital Signs:
Vital Signs
Temp Pulse Resp BP Pulse Ox
98.1 F 67 16 118/59 94
04/25/25 11:00 04/25/25 11:00 04/25/25 11:00 04/25/25 11:00 04/25/25 11:00
I&O
04/24/25 04/25/25 04/26/25
06:59 06:59 06:59
Intake Total 1520 / 1520 870 / 870
Output Total
Balance 1520 / 1520 845 / 845
Physical Exam
-
General: No Apparent Distress
HEENT: Normocephalic and Atraumatic
Respiratory: Negative Wheezes
Cardiac: Regular Rhythm and S1/S2
GI: Soft
Genito-urinary: No Costovertebral Tender
Musculoskeletal: No Edema
Neuro: AO x 3
Psych: Calm
Data Reviewed
-
Total Time Spent with Patient (in minutes): 42
Labs: Labs Reviewed by me
--- NOTE | 2025-04-25 12:11 | CM ---
Reviewed the chart notes. Referral sent to [facility]. CM continues to be available to patient/family and is monitoring medical plan for needs at discharge.
Plan: Discharge to SNF once medically stable and bed secured. No auth required.
[2025-04-25] MEDS: STERILE WATER FOR INJECTION 10 ML IV (14:23)
[2025-04-25] MEDS: ROCEPHIN 1000 MG IV (14:24)
[2025-04-25 15:00] VITALS: BP 138/70
[2025-04-25 16:59] LABS: Glucose - Point of Care 147 mg/dl (70-99)
[2025-04-25] MEDS: LIPITOR 10 MG PO (17:06)
[2025-04-25 19:17] VITALS: BP 131/59
[2025-04-25] MEDS: COLACE 100 MG PO (20:16)
[2025-04-25] MEDS: TYLENOL 650 MG PO (21:22)
[2025-04-25] MEDS: SENOKOT 8.6 MG PO (21:23)
[2025-04-25 21:55] LABS: Glucose - Point of Care 185 mg/dl (70-99)
[2025-04-25 23:14] VITALS: BP 127/64
[2025-04-26] VITALS (7 sets, daily range): BP systolic 120–164; BP diastolic 60–105; PULSE 71–72; O2SAT 96; BMI 30.6
[2025-04-26] MEDS: SYNTHROID 25 MCG PO (06:00)
[2025-04-26 07:56] LABS: Glucose - Point of Care 127 mg/dl (70-99)
[2025-04-26 07:57] LABS: Hematocrit 33.5 % (37.0-47.0); Hemoglobin 10.8 g/dL (12.0-16.0); Mean Corp Hgb Conc. 32.2 g/dL (33.0-37.0); Mean Corpuscular Volume 91.5 fL (81.0-99.0); Platelet Count 255 10^3/uL (130-400); Red Cell Dist. Width 13.4 % (11.5-14.5)
[2025-04-26 08:11] LABS: Blood Urea Nitrogen 10 mg/dl (7-17); Calcium 8.3 mg/dl (8.4-10.2); Carbon Dioxide 31 mmol/L (22-30); Chloride 100 mmol/L (98-107); Estimated Creatinine Clearance 80 ml/min; Glucose 106 mg/dl (70-99); Potassium 3.6 mmol/L (3.5-5.1); Sodium 135 mmol/L (135-145); eGFR > 60.00
[2025-04-26] MEDS: NOVOLOG FLEXPEN-LOW RESISTANCE SC (09:43)
[2025-04-26] MEDS: COZAAR 50 MG PO (09:45)
[2025-04-26] MEDS: PROTONIX 40 MG PO (09:45)
[2025-04-26] MEDS: COLACE 100 MG PO (09:46)
[2025-04-26] MEDS: KCL 20 MEQ PO (09:46)
[2025-04-26] MEDS: JANUVIA 100 MG PO (09:46)
[2025-04-26] MEDS: LOPRESSOR 50 MG PO ×2 (09:46→20:13)
[2025-04-26] MEDS: XALATAN OPHTHALMIC SOLUTION 1 DROP BOTH EYES (09:47)
[2025-04-26] MEDS: SOLU-CORTEF 25 MG IV ×2 (09:47→20:14)
--- NOTE | 2025-04-26 11:33 | W.PN.CD ---
Today's Communication / Plan
-
Lasix PRN for weight gain 3-5 lbs in week/day
We will setup f/u.
Impression / Plan
-
I/P: 79F with chronic HFpEF, SVT, atrial tachycardia, hypertension, hypercholesterolemia, mild mitral stenosis, type 2 diabetes melitis, PMR, adrenal insufficiency (steroid-dependent), and fibromyalgia presented to the emergency department with a
chief complaint of intractable nausea. Card consult for acute on chronic HFpEF.
Outpatient md allergy immunology: Dr. Armstrong
Acute hypoxic respiratory sufficiency
- now off O2
HFpEF, acute on chronic
- CXR with prominence of pulmonary vasculature, small bilateral pleural effusion, proBNP pending
- This is likley her new dry weight
- Diuresis per nephrology in the setting of hyponatremia
- Furosemide was 20 mg as needed prior for weight gain 3-5lbs in day/week
- She is not on SGLT2i due to UTIs, can consider MRA
Hyponatremia
- Being managed by nephrology
Intractable nausea with associated vomiting, per primary service
- improved/resolved
Low-grade temp
- 99.9 this morning, follow-up 99.2
- Influenza negative, COVID-19 negative
Hypertension
- Stable, continue metoprolol and lisinopril
SVT, continue beta-lynnette
Coronary artery calcification on CT, no angina, can transition to higher intensity statin after her nausea resolves
Mitral stenosis, MG 4 mmHg, continue outpatient surveillance
NIDDM, HgbA1c 7.3%
PMR/RA
Adrenal insufficiency, steroid-dependent
Fibromyalgia
SUBJECTIVE:
aniyaley d/c today
DATA:
Transthoracic echocardiogram 04/09/2025:
Normal biventricular size and systolic function without regional wall motion
abnormality.
Mild concentric left ventricular hypertrophy.
Diastolic function is indeterminate.
Mild mitral stenosis, mean 4 mmHg.
Mild to moderate mitral regurgitation.
Aortic sclerosis without stenosis.
No significant change since the prior study of 09/04/2024.
Physical Exam
Vital Signs/Labs
Vital Signs
Temp Pulse Resp BP Pulse Ox
98.1 F 69 20 137/67 94
04/26/25 10:45 04/26/25 10:45 04/26/25 10:45 04/26/25 10:45 04/26/25 10:45
04/25/25 04/26/25 04/27/25
06:59 06:59 06:59
Actual Weight 185 lb 4.8 oz 184 lb
04/26/25 06:40
04/26/25 06:40
Magnesium 1.9 mg/dl (1.6-2.3) 04/23/25 07:08
04/23/25
11:54
Piu-N-Ipnuheuumoa Pept 2390
Physical Exam
Constitutional: No acute distress and Comfortable
EENT: Anicteric
Cardiovascular: Rhythm & rate is regular
Respiratory: Respiratory effort normal
GI: Soft
Neuro/Psych: Alert and Oriented
Data Reviewed
-
Date of Service: April 26, 2025
EKG: Tracing Personally Visualized and interpreted (sr)
Echo: Report Reviewed by me
Labs: Labs Reviewed by me
--- NOTE | 2025-04-26 12:30 | CM ---
Addendum entered by Hailey Saunders 04/26/25 14:51:
Met with patient at bedside; discharge plan discussed
IMM benefit explained; form dated/timed on her behalf @ 1440
Original Note:
Plan: Discharge to [facility] tomorrow
Report # [phone]
[2025-04-26 12:33] LABS: Glucose - Point of Care 199 mg/dl (70-99)
[2025-04-26] MEDS: NOVOLOG FLEXPEN-LOW RESISTANCE 1 UNITS SC ×2 (13:15→17:15)
[2025-04-26] MEDS: STERILE WATER FOR INJECTION 10 ML IV (13:16)
[2025-04-26] MEDS: ROCEPHIN 1000 MG IV (13:16)
--- NOTE | 2025-04-26 14:39 | W.PN.HOSP.TC ---
Today's Communication/Plan
-
DC to SNF to 24 hours
Assessment / Plan
Assessment / Plan
Assessment:
Intractable Nausea, no abdominal pain
- ? secondary to enteric antibiotics (doxycycline and then Linezolid).
- Has completed course (through 04/22) and will remain off of further abx for now.
- Supportive care with antiemetics. continue PPI.
- Follow for improvement in symptoms.
acute Hyponatremia
- Na = 127 - similar to prior admission.
- Patient with multiple potential etiologies of hyponatremia.
- Has LE edema, weight gain and new hypoxemia suggestive of hypervolemia (see below).
- Has chronic steroid dependence and elevated urine sodium suggestive of relative adrenal insufficiency (see below).
- Persistent nausea x weeks as stimulus for ADH release.
- Despite nausea - patient denies frequent emesis and states she has been eating/drinking well. Hypovolemia seems less likely.
- Address above individual issues.
- Fluid restriction continues
- follow BMP daily
- Nephrology following; s/p Samsca
Acute on Chronic HFpEF
Acute Hypoxemic Respiratory Insufficiency secondary to the above
- Small bilateral pleural effusions, new hypoxemia, increased extremity edema.
- s/p IV Lasix course
- continue oral Lasix prn per Cardiology.
- Echo done earlier this month with normal EF and mild valvular disease.
- Cardiology signed off
Acute hypoxic respiratory insufficiency on 2L NC
- weaned to RA
Klebsiella UTI
- continue Rocephin, day 3/
Rheumatoid Arthritis/PMR
Chronic Steroid Dependence
Iatrogenic Adrenal Insufficiency
- Na levels improved last admission with stress dose steroids and began to decrease towards discharge as steroid was lowered.
- Urine studies with elevated urine Na suggestive of adrenal insufficiency (though it is not clear when patient last took PRN Lasix).
- Change steroid to hydrocortisone 25mg BID for now and follow for any improvement / clinical changes.
- AM Cortisol is low normal. spot ACTH is pending
- Slow taper back to usual home dose (8mg methylprednisolone or 40mg hydrocortisone daily).
Hypothyroidism
- TSH normal. continue T4 replacement dose
MRSA Bursitis of Left Olecranon Bursa
- Improving/improved. Afebrile and no evidence of active infection at elbow/surgical site.
- Hold any further abx as noted above. Completed originally planned course (through 04/22).
- PT/OT evaluations - SNF recommended
- Ortho consulted and removed sutures 04/25/25.
Benign Hypertension
- Stable. continue usual home med regimen with holding parameters.
DM-II
- Stable. continue Januvia.
- Follow glucose and cover with SSI as needed.
- A1C was 7.3% during recent hospital stay.
GERD
- Stable. Continue PPI.
ARIANA on CPAP
- Stable. Continue nightly PAP therapy.
Obesity due to excess calories
- Affects all aspects of care.
- Encourage healthy diet and increased exercise with goal of weight loss.
DVT Prophylaxis: Lovenox held for bloody urine. Consider resumption in 24 hours.
Code Status: DNR/DNI
Anticipated Discharge: Within 24 hours
Subjective/Interval History
-
Date of Service: April 26, 2025
resting comfortably, no complaints
Objective Data
-
Labs:
Laboratory Results
04/26/25
06:40
WBC 11.0 H
Hgb 10.8 L
Hct 33.5 L
Plt Count 255
Sodium 135
Potassium 3.6
Chloride 100
Carbon Dioxide 31 H
BUN 10
Creatinine 0.5 L
Glucose 106 H
Calcium 8.3 L
Vital Signs:
Vital Signs
Temp Pulse Resp BP Pulse Ox
98.1 F 69 20 137/67 94
04/26/25 10:45 04/26/25 10:45 04/26/25 10:45 04/26/25 10:45 04/26/25 10:45
I&O
04/25/25 04/26/25 04/27/25
06:59 06:59 06:59
Intake Total 870 / 870 1140 / 1140
Output Total
Balance 845 / 845 1140 / 1140
Physical Exam
-
General: No Apparent Distress
HEENT: Normocephalic and Atraumatic
Respiratory: Negative Wheezes
Cardiac: Regular Rhythm and S1/S2
GI: Soft
Genito-urinary: No Costovertebral Tender
Neuro: AO x 3
Hematologic / Lymphatic: No Lymphadenopathy
Psych: Calm
Data Reviewed
-
Total Time Spent with Patient (in minutes): 41
Labs: Labs Reviewed by me
[2025-04-26 16:47] LABS: Glucose - Point of Care 185 mg/dl (70-99)
[2025-04-26] MEDS: LIPITOR 10 MG PO (17:16)
[2025-04-26] MEDS: TYLENOL 650 MG PO (20:13)
[2025-04-26] MEDS: COLACE PO ×2 (20:14→20:15)
[2025-04-26 21:38] LABS: Glucose - Point of Care 156 mg/dl (70-99)
[2025-04-26] MEDS: SENOKOT PO (22:07)
[2025-04-27 02:43] VITALS: BP 156/81
[2025-04-27] MEDS: SYNTHROID 25 MCG PO (05:42)
[2025-04-27 05:48] VITALS: BMI 30.8
[2025-04-27 07:13] LABS: Hematocrit 35.3 % (37.0-47.0); Hemoglobin 10.9 g/dL (12.0-16.0); Mean Corp Hgb Conc. 30.9 g/dL (33.0-37.0); Mean Corpuscular Volume 92.7 fL (81.0-99.0); Platelet Count 260 10^3/uL (130-400); Red Cell Dist. Width 13.4 % (11.5-14.5)
[2025-04-27 07:30] VITALS: BP 167/85
[2025-04-27 07:56] LABS: Blood Urea Nitrogen 12 mg/dl (7-17); Calcium 8.6 mg/dl (8.4-10.2); Carbon Dioxide 31 mmol/L (22-30); Chloride 101 mmol/L (98-107); Estimated Creatinine Clearance 80 ml/min; Glucose 106 mg/dl (70-99); Potassium 3.6 mmol/L (3.5-5.1); Sodium 136 mmol/L (135-145); eGFR > 60.00
[2025-04-27 08:08] LABS: Glucose - Point of Care 100 mg/dl (70-99)
[2025-04-27] MEDS: NOVOLOG FLEXPEN-LOW RESISTANCE SC (08:40)
[2025-04-27] MEDS: COLACE PO (08:41)
[2025-04-27] MEDS: SOLU-CORTEF 25 MG IV (08:42)
[2025-04-27] MEDS: PROTONIX 40 MG PO (08:43)
[2025-04-27] MEDS: COZAAR 50 MG PO (08:44)
[2025-04-27] MEDS: LOPRESSOR 50 MG PO (08:44)
[2025-04-27] MEDS: JANUVIA 100 MG PO (08:44)
[2025-04-27] MEDS: KCL 20 MEQ PO (08:45)
[2025-04-27] MEDS: XALATAN OPHTHALMIC SOLUTION 1 DROP BOTH EYES (08:45)
--- NOTE | 2025-04-27 10:19 | CM ---
Reviewed the chart notes and spoke with the patient at the bedside. Patient is for discharge to [facility] today. Per patient, family will be able to transport. CM continues to be available to patient/family and is monitoring medical plan for needs at
discharge.
Plan: Discharge to [facility] today.
Call report to: [phone]
Fax report to: [phone]
[2025-04-27 11:10] VITALS: BP 173/79
[2025-04-27] MEDS: TYLENOL 650 MG PO (11:23)
[2025-04-27 11:32] VITALS: BP 148/75
[2025-04-27] MEDS: NOVOLOG FLEXPEN-LOW RESISTANCE 1 UNITS SC (12:31)
--- NOTE | 2025-04-27 13:36 | W.PN.HOSP.TC ---
Today's Communication/Plan
-
DC to SNF
Assessment / Plan
Assessment / Plan
Assessment:
Intractable Nausea, no abdominal pain
- ? secondary to enteric antibiotics (doxycycline and then Linezolid).
- Has completed course (through 04/22) and will remain off of further abx for now.
- Supportive care with antiemetics. continue PPI.
- Follow for improvement in symptoms.
acute Hyponatremia
- Na = 127 - similar to prior admission.
- Patient with multiple potential etiologies of hyponatremia.
- Has LE edema, weight gain and new hypoxemia suggestive of hypervolemia (see below).
- Has chronic steroid dependence and elevated urine sodium suggestive of relative adrenal insufficiency (see below).
- Persistent nausea x weeks as stimulus for ADH release.
- Despite nausea - patient denies frequent emesis and states she has been eating/drinking well. Hypovolemia seems less likely.
- Address above individual issues.
- Fluid restriction continues
- follow BMP daily
- Nephrology following; s/p Samsca
Acute on Chronic HFpEF
Acute Hypoxemic Respiratory Insufficiency secondary to the above
- Small bilateral pleural effusions, new hypoxemia, increased extremity edema.
- s/p IV Lasix course
- continue oral Lasix prn per Cardiology.
- Echo done earlier this month with normal EF and mild valvular disease.
- Cardiology signed off
Acute hypoxic respiratory insufficiency on 2L NC
- weaned to RA
Klebsiella UTI
- continue Rocephin, day 4/5: Cefdinir at discharge
Rheumatoid Arthritis/PMR
Chronic Steroid Dependence
Iatrogenic Adrenal Insufficiency
- Na levels improved last admission with stress dose steroids and began to decrease towards discharge as steroid was lowered.
- Urine studies with elevated urine Na suggestive of adrenal insufficiency (though it is not clear when patient last took PRN Lasix).
- Change steroid to hydrocortisone 25mg BID for now and follow for any improvement / clinical changes.
- AM Cortisol is low normal. spot ACTH is pending
- Slow taper back to usual home dose (8mg methylprednisolone or 40mg hydrocortisone daily).
Hypothyroidism
- TSH normal. continue T4 replacement dose
MRSA Bursitis of Left Olecranon Bursa
- Improving/improved. Afebrile and no evidence of active infection at elbow/surgical site.
- Hold any further abx as noted above. Completed originally planned course (through 04/22).
- PT/OT evaluations - SNF recommended
- Ortho consulted and removed sutures 04/25/25.
Benign Hypertension
- Stable. continue usual home med regimen with holding parameters.
DM-II
- Stable. continue Januvia.
- Follow glucose and cover with SSI as needed.
- A1C was 7.3% during recent hospital stay.
GERD
- Stable. Continue PPI.
ARIANA on CPAP
- Stable. Continue nightly PAP therapy.
Obesity due to excess calories
- Affects all aspects of care.
- Encourage healthy diet and increased exercise with goal of weight loss.
DVT Prophylaxis: Lovenox held for bloody urine. Consider resumption in 24 hours.
Code Status: DNR/DNI
More than 30 minutes spent in discharge including
Final examination of the patient
Summarizing hospital stay
Instructions for continuing care to all relevant caregivers
Preparation of discharge records, prescriptions, and referral forms
Total time spent (in minutes): 42
Anticipated Discharge: Today
Subjective/Interval History
-
Date of Service: April 27, 2025
resting comfortably, no complaints at present
Objective Data
-
Labs:
Laboratory Results
04/27/25
06:59
WBC 12.4 H
Hgb 10.9 L
Hct 35.3 L
Plt Count 260
Sodium 136
Potassium 3.6
Chloride 101
Carbon Dioxide 31 H
BUN 12
Creatinine 0.5 L
Glucose 106 H
Calcium 8.6
Vital Signs:
Vital Signs
Temp Pulse Resp BP Pulse Ox
98.1 F 71 16 148/75 97
04/27/25 11:10 04/27/25 11:10 04/27/25 11:10 04/27/25 11:32 04/27/25 11:10
I&O
04/26/25 04/27/25 04/28/25
06:59 06:59 06:59
Intake Total 1140 / 1140 900 / 900
Balance 1140 / 1140 900 / 900
Physical Exam
-
General: No Apparent Distress
HEENT: Normocephalic and Atraumatic
Respiratory: Negative Wheezes
Cardiac: Regular Rhythm and S1/S2
GI: Soft and Nontender
Genito-urinary: No Costovertebral Tender
Neuro: AO x 3
Hematologic / Lymphatic: No Lymphadenopathy
Psych: Calm
Data Reviewed
-
Total Time Spent with Patient (in minutes): 42
Labs: Labs Reviewed by me
--- NOTE | 2025-04-27 13:43 | W.DS.TRANS ---
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
-
Discharge Instructions:
Discharge Diagnosis/Procedures UTI, nausea, hyponatremia, CHF, recent L elbow
infection
Diet Diabetic, Carb Controlled
Activity As tolerated
Other Services OT,PT
Instructions:
Stand-Alone Forms:
Changes to Home Medications: No
Discharge Medications:
DC Medications w/original date entered in [employer]
simvastatin 10 mg tablet (Zocor) 10 mg PO QPM High cholesterol 02/13/08
levothyroxine 25 mcg tablet 25 mcg PO DAILY Thyroid 05/30/20
pantoprazole 40 mg tablet,delayed release (Protonix) 40 mg PO BID Gastrointestinal Issue 12/30/22
calcium citrate 250 mg PO DAILY Supplement 06/24/23
latanoprost 0.005 % eye drops 1 drp BOTH EYES DAILY Eye Condition 06/24/23
magnesium oxide 400 mg PO QPM Electrolyte Repletion 06/24/23
losartan 50 mg tablet 50 mg PO DAILY Blood pressure #0 tabs 09/04/24
acetaminophen 650 mg tablet,extended release 650 mg PO Q8HPRN PRN mild pain 04/08/25
cholecalciferol (vitamin D3) 25 mcg (1,000 unit) tablet 25 mcg PO DAILY Supplement 04/08/25
estradiol 0.01% (0.1 mg/gram) vaginal cream 1 appful vaginal MOTH Hormonal Agent 04/08/25
guaifenesin 600 mg tablet, extended release 12 hr 600 mg PO DAILY Cough 04/08/25
methylprednisolone 8 mg tablet 8 mg PO DAILY Anti-Inflammatory 04/08/25
sitagliptin phosphate 100 mg tablet (Januvia) 100 mg PO DAILY Diabetes 04/08/25
varenicline tartrate 0.03 mg/spray metered nasal spray (Tyrvaya) 1 spray intranasal BID DRY EYE DISEASE 04/08/25
acetaminophen 325 mg tablet 650 mg (2 x 325 mg) PO Q4HPRN PRN pain #30 tabs 04/12/25
metoprolol tartrate 50 mg tablet 50 mg PO BID 30 days #60 tabs 04/12/25
lactobacillus combination no.4 3 billion cell capsule (Probiotic) 3,000 mmu cells PO DAILY #30 caps 04/14/25
furosemide 20 mg tablet 20 mg PO DAILYPRN PRN Edema 04/23/25
cefdinir 300 mg capsule 300 mg PO BID #2 caps 04/27/25
white petrolatum 41 % topical ointment (Aquaphor Healing) 1 applic topical DAILYPRN PRN to elbow for itching #50 grams 04/27/25
Home Medication Changes
Pending Results: No
Total time spent discharging patient (in min): 42
[2025-04-27] MEDS: STERILE WATER FOR INJECTION 10 ML IV (14:08)
[2025-04-27] MEDS: ROCEPHIN 1000 MG IV (14:08)
[2025-04-27 16:48] LABS: Glucose - Point of Care 176 mg/dl (70-99)
== END 2025-04-27 14:48 | DRG 640 ==
LOC: 2 NORTH 03:07
PROVIDERS: Nurse Practitioner Gerontology; ADMITTING PHYSICIAN Hospitalist; ATTENDING PHYSICIAN Internal Medicine; CONSULT PHYSICIAN Internal Medicine Cardiovascular Disease; EMERGENCY PHYSICIAN Emergency Medicine; OTHER PHYSICIAN Specialist
DX: E87.1 Hypo-osmolality and hyponatremia (principal); I50.33 Acute on chronic diastolic (congestive) heart failure; N39.0 Urinary tract infection, site not specified; E27.3 Drug-induced adrenocortical insufficiency; I47.19 Other supraventricular tachycardia; M06.9 Rheumatoid arthritis, unspecified; M35.3 Polymyalgia rheumatica; E11.9 Type 2 diabetes mellitus without complications; I11.0 Hypertensive heart disease with heart failure; K21.9 Gastro-esophageal reflux disease without esophagitis; G47.33 Obstructive sleep apnea (adult) (pediatric); E87.6 Hypokalemia; E03.9 Hypothyroidism, unspecified; E66.09 Other obesity due to excess calories; R09.02 Hypoxemia; Z66 Do not resuscitate; E78.00 Pure hypercholesterolemia, unspecified; M70.22 Olecranon bursitis, left elbow; M79.7 Fibromyalgia; B96.1 Klebsiella pneumoniae [K. pneumoniae] as the cause of diseases classified elsewhere; R11.2 Nausea with vomiting, unspecified; I05.0 Rheumatic mitral stenosis; T36.4X5A Adverse effect of tetracyclines, initial encounter; Z68.30 Body mass index [BMI] 30.0-30.9, adult; Z11.52 Encounter for screening for COVID-19; Z87.440 Personal history of urinary (tract) infections; Z98.890 Other specified postprocedural states; Z86.14 Personal history of Methicillin resistant Staphylococcus aureus infection; Z79.52 Long term (current) use of systemic steroids; Z79.84 Long term (current) use of oral hypoglycemic drugs
CPT/HCPCS: 71046; 71275; 80048; 80053; 81003; 81015; 82024; 82533; 82962; 83605; 83690; 83735; 83880; 83935; 84300; 84443; 84484; 85025; 85027; 87040; 87077; 87086; 87186; 87502; 87811; 92526; 92610; 93005; 97163; 97167; 97530; 97535; 99285; Q9967

== ENCOUNTER → 2025-04-30 09:27 | Outpatient (REF) | payer MEDICARE, SELFPAY ==
[2025-04-30 12:17] LABS: Hematocrit 36.3 % (37.0-47.0); Hemoglobin 11.2 g/dL (12.0-16.0); Mean Corp Hgb Conc. 30.9 g/dL (33.0-37.0); Mean Corpuscular Volume 91.4 fL (81.0-99.0); Platelet Count 305 10^3/uL (130-400); Red Cell Dist. Width 14.0 % (11.5-14.5)
[2025-04-30 12:44] LABS: Blood Urea Nitrogen 11 mg/dl (7-17); Calcium 9.4 mg/dl (8.4-10.2); Carbon Dioxide 27 mmol/L (22-30); Chloride 101 mmol/L (98-107); Glucose 109 mg/dl (70-99); Potassium 3.6 mmol/L (3.5-5.1); Sodium 135 mmol/L (135-145); eGFR > 60.00
== END ==
LOC: OLABP 09:27
PROVIDERS: ATTENDING PHYSICIAN Family Medicine
DX: N39.0 Urinary tract infection, site not specified (principal); Z22.322 Carrier or suspected carrier of Methicillin resistant Staphylococcus aureus; B96.1 Klebsiella pneumoniae [K. pneumoniae] as the cause of diseases classified elsewhere; D84.9 Immunodeficiency, unspecified; E11.9 Type 2 diabetes mellitus without complications; E87.1 Hypo-osmolality and hyponatremia; M06.9 Rheumatoid arthritis, unspecified; R11.0 Nausea
CPT/HCPCS: 36415; 80048; 85027

== ENCOUNTER → 2025-05-04 09:44 | Outpatient (REF) | payer MEDICARE, SELFPAY ==
[2025-05-04 11:04] LABS: Hematocrit 34.2 % (37.0-47.0); Hemoglobin 10.4 g/dL (12.0-16.0); Mean Corp Hgb Conc. 30.4 g/dL (33.0-37.0); Mean Corpuscular Volume 92.4 fL (81.0-99.0); Platelet Count 345 10^3/uL (130-400); Red Cell Dist. Width 14.0 % (11.5-14.5)
[2025-05-04 12:05] LABS: Blood Urea Nitrogen 16 mg/dl (7-17); Calcium 8.9 mg/dl (8.4-10.2); Carbon Dioxide 33 mmol/L (22-30); Chloride 100 mmol/L (98-107); Glucose 96 mg/dl (70-99); Potassium 3.7 mmol/L (3.5-5.1); Sodium 136 mmol/L (135-145); eGFR > 60.00
== END ==
LOC: OLABP 09:44
PROVIDERS: ATTENDING PHYSICIAN Family Medicine
DX: N39.0 Urinary tract infection, site not specified (principal); Z22.322 Carrier or suspected carrier of Methicillin resistant Staphylococcus aureus; B96.1 Klebsiella pneumoniae [K. pneumoniae] as the cause of diseases classified elsewhere; D84.9 Immunodeficiency, unspecified; E11.9 Type 2 diabetes mellitus without complications; E87.1 Hypo-osmolality and hyponatremia; M06.9 Rheumatoid arthritis, unspecified; R11.10 Vomiting, unspecified
CPT/HCPCS: 36415; 80048; 85027